=== PATIENT | female | born 1930 | race Caucasian/White ===

== ENCOUNTER → 2016-09-27 | Outpatient (CLI) | payer MEDICARE ==
[~2016-09-27] MED LIST: ALEN70TA4 PO; ATEN50TA PO; ATOR-14 PO; DBT/25 PO; LEVO50TA6 PO; LISI-729 PO
[2016-09-27 12:19] LABS: HEMATOCRIT 33.6 % (37-47); MEAN CELL VOLUME 92.8 fL (80-100); MEAN CORPUSCULAR HEMOGLOBIN 31.5 pg (25-34); MEAN CORPUSCULAR HGB CONC 33.9 g/dl (32-36); MEAN PLATELET VOLUME 9.8 fL (7.4-10.4); PLATELET COUNT 167 K/uL (130-400); RED BLOOD COUNT 3.62 M/uL (4.2-5.4); WHITE BLOOD COUNT 4.63 K/uL (4.8-10.8)
[2016-09-27 12:54] LABS: FERRITIN 117.8 ng/ml (8.0-388.0); THYROID STIMULATING HORMONE 4.41 uIu/ml (0.300-4.500)
[2016-09-27 12:58] LABS: ESTIMATED AVERAGE GLUCOSE 186 mg/dl; HA1C FLAG Normal (Normal)
== END | disposition home or self-care (01) ==
LOC: C.LAB 11:40
PROVIDERS: ATTEND Nurse Practitioner Adult Health
DX: E11.9 Type 2 diabetes mellitus without complications (principal); E03.9 Hypothyroidism, unspecified; D64.9 Anemia, unspecified

== ENCOUNTER → 2017-01-03 | Day surgery (SDC) | payer MEDICARE ==
[2016-12-14 13:33] VITALS: Ht 162.6 cm; Wt 59.1 kg
[~2017-01-03] VITALS: Ht 162.6 cm; Wt 59.1 kg
[~2017-01-03] MED LIST changes: +500ML BSS 0.3ML EPI 1:1000PF IRRIG ONE; +ACETAMINOPHEN 325 MG TAB PO PRN; -ALEN70TA4 PO; +AMVISC PLUS 0.8ML SYRINGE INT OCU ONE; -ATOR-14 PO; +ATROPINE SULFATE 0.1 MG/ML 5ML SYR IV PRN; +BSS FLUSH ONE; +ENDOCOAT 0.85ML SYRINGE INT OCU ONE; +EpHEDrine SULFATE INJ 50 MG/ML AMP IV PRN; +EpINEphrine INJ 1MG/ML AMP 1 MG/ML AMP ONE; +LACTATED RINGER'S 1000ML 500 ML IV SCH; +LIDOCAINE 4% OP SOLN DROP CHARGE ONE; +LIDOCAINE 4% OP SOLN DROP CHARGE OPL SCH; +LIDOCAINE HCL 1% MPF 2 ML VIAL ONE; +LIDOCAINE HCL 2% 2 ML VIAL (20MG/ML) ONE; -LISI-729 PO; +MIDAZOLAM HCL 1 MG/ML 2ML VIAL ONE; +MIX: 4ML BSS 1ML EPI 1:1000 PF TOP ONE; +MOXIFLOXACIN OPH SOLN PER DROP CHARGE ONE; +POVIDONE-IODINE OP SOLN 30 ML BTL ONE; +PROPARACAINE 0.5% OP SOLN PER DROP CHARGE OPL SCH; +PROPOFOL IV EMULSION 10 MG/ML 20 ML VIAL IV ONE; +TOBRAMYCIN/DEXAMETHASONE OPH OINT PER APPLN CHARGE ONE
--- NOTE | 2017-01-03 09:23 | History & Physical Bridge - [place] ---
H&P Re-Evaluation Bridge Note: I have examined the patient, reviewed the History & Physical and in the interval since the performance of the History & Physical I have noted the following changes of clinical significance: No changes noted
[2017-01-03] MEDS: PHENYLEPHRINE HCL 2.5% OP SOLN PER DROP CHARGE OPL SCH ×3 (09:38→09:50)
[2017-01-03] MEDS: TROPICAMIDE 1% OP SOLN PER DROP CHARGE OPL SCH ×3 (09:39→09:51)
[2017-01-03] MEDS: CYCLOPENTOLATE HCL 1% OP SOLN PER DROP CHARGE OPL SCH ×3 (09:40→09:52)
[2017-01-03] MEDS: MOXIFLOXACIN OPH SOLN PER DROP CHARGE OPL SCH ×3 (09:41→09:53)
--- NOTE | 2017-01-03 10:40 | [facility] Post Operative Brief Note ---
Immediate Operative Summary Operative Date Jan 03, 2017. Pre-Operative Diagnosis Left eye cataract Post-Operative Diagnosis same Procedure(s) Performed Left Cataract Phacoemulsification With Intraocular Lens Implant Surgeon Dr Zavala Funding Specialist Surgeon(s) none Estimated Blood Loss 0 Findings left cataract Specimens none Complication(s) None Disposition
[2017-01-03 10:42] VITALS: TEMP 36.5
--- NOTE | 2017-01-03 10:42 | Discharge Instructions-SurgCtr ---
Discharge Instructions Date of Service Jan 03, 2017. Visit Reason for Visit: Left Cataract Discharge Discharge Diagnosis / Problem: left cataract Discharge Goals Goal(s): Decrease discomfort, Improve function Activity Recommendations Activity Limitations: as noted below Anesthesia . Post Anesthesia Instructions: If you have had General Anesthesia or IV Sedation: * Do not drive today. * Resume driving when surgeon permits. * Do not make important decisions or sign legal documents today. * Call surgeon for: 1. Temperature elevations greater than 101 degrees F. 2. Uncontrollable pain. 3. Excessive bleeding. 4. Persistent nausea and vomiting. 5. Medication intolerance (nausea, vomiting or rash). * For nausea and vomiting use only clear liquids such as: tea, soda, bouillon until nausea subsides, then gradually increase diet as tolerated. * If you have any concerns or questions, call your surgeon's office. If physician is unavailable and it is an emergency, call 911 or go to the nearest emergency room. . Instructions / Follow-Up Instructions / Follow-Up ACTIVITY RECOMMENDATIONS: * Light activities. * You may walk outside, read, watch television. * You may notice redness on the white part of the eye and some blurry vision - this is normal. MEDICATIONS: Resume previous medications unless instructed otherwise by your surgeon. Start all eye drops at 12:30 pm today: * Eye drops (today): Prednisone - one drop in operative eye every 2 hours while awake Ofloxacin - one drop in operative eye every 2 hours while awake Bromfenac - one drop in operative eye daily SPECIAL CARE INSTRUCTIONS: * Tape plastic shield over eye to sleep at night. Call your doctor at with any concerns or problems. FOLLOW UP VISIT: Follow-up with Dr Zavala at [facility] office as scheduled. Diet Recommendations Home Diet: no limitations Procedures Procedures Performed: Left Cataract Phacoemulsification With Intraocular Lens Implant Pending Studies Studies pending at discharge: no Medical Emergencies . Who to Call and When: Medical Emergencies: If at any time you feel your situation is an emergency, please call 911 immediately. . Non-Emergent Contact Non-Emergency issues call your: Surgeon . . "Provider Documentation" section prepared by Quinton Zavala. .
[2017-01-03 11:10] VITALS: BP 175/66; PULSE 63; O2SAT 99
--- NOTE | 2017-01-03 11:13 | Anesthesia Progress Nt - [facility] ---
Anesthesia Post Op Note Date & Time Jan 03, 2017 at 11:13 Vital Signs Pain Intensity: 0 Vital Signs Past 12 Hours Date Time Temp Pulse Resp B/P (MAP) Pulse Ox O2 Delivery O2 Flow Rate FiO2 01/03/17 11:10 63 18 175/66 (102) 99 Room Air 01/03/17 10:42 36.5 63 16 165/72 (103) 98 Room Air 01/03/17 09:25 36.8 67 16 160/71 (100) 95 Room Air Notes Mental Status: alert / awake / arousable, participated in evaluation Pt Amnestic to Procedure: Yes Nausea / Vomiting: adequately controlled Pain: adequately controlled Airway Patency, RR, SpO2: stable & adequate BP & HR: stable & adequate Hydration State: stable & adequate Anesthetic Complications: no major complications apparent
--- NOTE | 2017-01-24 10:06 | [facility] Operative Report ---
Operative Report Date of Service Jan 24, 2017. Operative Report Phaco with monofocal IOL DATE OF OPERATION: 01/03/17 PREOPERATIVE DIAGNOSIS: Senile nuclear cataract, left eye POSTOPERATIVE DIAGNOSIS: Senile nuclear cataract, left eye PROCEDURE PERFORMED: Phacoemulsification with intraocular lens implantation, left eye SURGEON: Dr. Quinton Zavala ANESTHESIA: Topical with 1% intracameral lidocaine and monitored anesthesia care COMPLICATIONS: None DESCRIPTION OF PROCEDURE: After positively identifying the patient both verbally and by wristband in the preoperative area, the left eye was marked as the operative eye. The patient was then brought back to the operating room by the anesthesia and nursing staff where they were given a drop of Lidocaine and betadine into the operative eye. They were then sterilely prepped and draped in the standard fashion typical for ophthalmic surgery. Steri-strips were placed along the upper eyelids to keep the lashes back, and a lid speculum was placed into the operative eye. At this point, a documented time out was performed with members of the ophthalmology, nursing, and anesthesia staffs all agreeing upon the correct patient, correct location for surgery, correct procedure, and correct type and power of intraocular lens to be implanted. The microscope was then swung into position. First, a paracentesis wound was made using a sideport blade. Then, in sequence, 1% preservative-free lidocaine followed by Endocoat viscoelastic was injected into the anterior chamber. Next , the main incision was made with a keratome blade in triplanar fashion. A sharp cystotome was introduced into the eye and used to create a tear in the anterior capsule, which was directed into a continuous curvilinear capsulorrhexis using Utrata forceps. Hydrodissection was then performed with BSS on a flat-tip cannula. Next, the phacoemulsification handpiece was introduced into the eye and used to remove the nucleus in a [id number] fashion. This was done without complication and then the irrigation-aspiration handpiece was introduced into the eye and used to remove all remaining cortical and epinuclear material. Amvisc was then injected into the anterior chamber as well as into the capsular bag and using the lens injector system, an MX60 23.0 D lens, serial number [id number], and expiration date 06/2019 was injected into the capsular bag and rotated into the correct position. Next, the irrigation- aspiration handpiece was used to remove all remaining Amvisc. BSS was used to hydrate the main wound, and then BSS was injected into the paracentesis site to reach physiologic pressure and then the main wound was checked and found to be watertight. The patient was given drops of Vigamox and Tobradex ointment into the operative eye, and then the surrounding area was cleaned and dried. A clear plastic shield was placed over the eye and the patient was then sat up and taken from the operating room by the anesthesia staff having tolerated the procedure well and suffering no complications. DISPOSITION: The patient was returned to the recovery room in stable condition. I attest to the content of the Intraoperative Record and any orders documented therein. Any exceptions are noted below.
== END | disposition home or self-care (01) ==
LOC: X.SURG 09:14
PROVIDERS: ATTEND Ophthalmology
DX: H25.12 Age-related nuclear cataract, left eye (principal); I10 Essential (primary) hypertension; E03.9 Hypothyroidism, unspecified; E11.9 Type 2 diabetes mellitus without complications; Z79.84 Long term (current) use of oral hypoglycemic drugs; F41.9 Anxiety disorder, unspecified

== ENCOUNTER → 2017-06-13 | Outpatient (CLI) | payer MEDICARE ==
[~2017-06-13] MED LIST changes: -500ML BSS 0.3ML EPI 1:1000PF IRRIG ONE; +ACET-1311 PO; -ACETAMINOPHEN 325 MG TAB PO PRN; +AMOX500C3 PO; +AMPI500C9 PO; -AMVISC PLUS 0.8ML SYRINGE INT OCU ONE; +ASPI-320 PO; -ATROPINE SULFATE 0.1 MG/ML 5ML SYR IV PRN; +BISA10SU38 PR; -BSS FLUSH ONE; +CALC500C3 PO; +CIPR1TAB11 PO; +CPR500 PO; +CRD200 PO; -ENDOCOAT 0.85ML SYRINGE INT OCU ONE; -EpHEDrine SULFATE INJ 50 MG/ML AMP IV PRN; -EpINEphrine INJ 1MG/ML AMP 1 MG/ML AMP ONE; +GLC/500 PO; +INSDGIPEN SC; +KFL500 PO; -LACTATED RINGER'S 1000ML 500 ML IV SCH; +LCTX PO; -LIDOCAINE 4% OP SOLN DROP CHARGE ONE; -LIDOCAINE 4% OP SOLN DROP CHARGE OPL SCH; -LIDOCAINE HCL 1% MPF 2 ML VIAL ONE; -LIDOCAINE HCL 2% 2 ML VIAL (20MG/ML) ONE; +LISI-789 PO; +LPR25 PO; +LPT40 PO; +LSN25 PO; +METF750T PO; +METO50TA16 PO; +MGNO400 PO; -MIDAZOLAM HCL 1 MG/ML 2ML VIAL ONE; +MIRT15TA3 PO; +MIRT1TAB27; -MIX: 4ML BSS 1ML EPI 1:1000 PF TOP ONE; +MOML PO; -MOXIFLOXACIN OPH SOLN PER DROP CHARGE ONE; +MRLP17X PO; +NTRSLP4 SL; +NUTR-7 PO; +NVLGIPEN SC; +ONDA4TAB46 PO; +PANT1TAB4 PO; +PLV75 PO; -POVIDONE-IODINE OP SOLN 30 ML BTL ONE; +PRLSR20 PO; -PROPARACAINE 0.5% OP SOLN PER DROP CHARGE OPL SCH; -PROPOFOL IV EMULSION 10 MG/ML 20 ML VIAL IV ONE; +RANI1TAB75 PO; +SODI0.9S IV; +SULF800T23 PO; -TOBRAMYCIN/DEXAMETHASONE OPH OINT PER APPLN CHARGE ONE; +TPRSR50 PO; +TRMO115 TOP; +[UNRECOGNIZED DRUG - CODE] TOP
--- NOTE | 2017-06-13 10:47 | DIAGNOSTIC IMAGING REPORT ---
L FOOT MIN 3 VIEWS ROUTINE CLINICAL HISTORY: 86 years-old Female presenting with CELLULITIS OF L FOOT. TECHNIQUE: Frontal, oblique, and lateral views the left foot were obtained. COMPARISON: None. FINDINGS: Osteopenia. This limits evaluation for osseous erosion and nondisplaced fracture. Mild diffuse soft tissue swelling. Atherosclerosis. Mild degenerative changes of the first metatarsophalangeal joint. Prominent bone spur at the inferior calcaneus. Degenerative changes of the distal interphalangeal joint of the second toe. No acute fracture or malalignment. A bandage overlies the distal second toe. No gross evidence of ostial lysis of the tuft of the distal phalanx of the second toe. No soft tissue emphysema. No gross evidence of osseous erosion or periostitis. IMPRESSION: Allowing for osteopenia, no gross evidence of osteomyelitis. Electronically signed by: Jeremias Parikh M.D. 06/13/2017 10:46 AM Dictated Date/Time: 06/13/2017 10:44 AM
[2017-06-13 12:08] LABS: BASO % 0.5 %; BASO ABS # 0.03 K/uL (0-0.2); EOS % 2.4 %; EOS ABS # 0.14 K/uL (0-0.5); HEMATOCRIT 32.2 % (37-47); HEMOGLOBIN 10.7 g/dL (12.0-16.0); IG# 0.02 K/uL (0.00-0.02); LYMPH ABS # 1.11 K/uL (1.2-3.4); MEAN CELL VOLUME 93.6 fL (80-100); MEAN CORPUSCULAR HEMOGLOBIN 31.1 pg (25-34); MEAN CORPUSCULAR HGB CONC 33.2 g/dl (32-36); MEAN PLATELET VOLUME 10.4 fL (7.4-10.4); MONO % 12.8 %; MONO ABS # 0.75 K/uL (0.11-0.59); PLATELET COUNT 213 K/uL (130-400); RED CELL DISTRIBUTION WIDTH CV 12.7 % (11.5-14.5); RED CELL DISTRIBUTION WIDTH SD 43.4 fL (36.4-46.3); WHITE BLOOD COUNT 5.85 K/uL (4.8-10.8)
[2017-06-13 12:11] LABS: HEMOGLOBIN A1C 10.4 % (4.5-5.6)
[2017-06-13 12:17] LABS: ALBUMIN 2.9 gm/dl (3.4-5.0); ALT/SGPT 17 U/L (12-78); AST/SGOT 14 U/L (15-37); BLOOD UREA NITROGEN 24 mg/dl (7-18); CALCIUM 8.9 mg/dl (8.5-10.1); CARBON DIOXIDE 31 mmol/L (21-32); CHOLESTEROL 176 mg/dl (0-200); CREATININE 1.09 mg/dl (0.60-1.20); GLUCOSE 304 mg/dl (70-99); POTASSIUM 4.3 mmol/L (3.5-5.1); SODIUM 135 mmol/L (136-145); TOTAL PROTEIN 7.7 gm/dl (6.4-8.2)
[2017-06-13 12:19] LABS: ALKALINE PHOSPHATASE 81 U/L (45-117); LDL CHOLESTEROL CALCULATED 106 mg/dl
== END | disposition home or self-care (01) ==
LOC: C.RAD 09:51
PROVIDERS: ATTEND Nurse Practitioner Family
DX: L03.116 Cellulitis of left lower limb (principal); E11.621 Type 2 diabetes mellitus with foot ulcer; E03.9 Hypothyroidism, unspecified

== ENCOUNTER 2017-06-27 16:04 | Inpatient (IN) | payer MEDICARE, OTHER ==
[~2017-06-27] VITALS: Ht 162.6 cm; Wt 57.6 kg
[~2017-06-27 16:04] MED LIST changes: -ACET-1311 PO; -AMPI500C9 PO; -ASPI-320 PO; -BISA10SU38 PR; -CALC500C3 PO; -CIPR1TAB11 PO; -CPR500 PO; -CRD200 PO; -DBT/25 PO; -INSDGIPEN SC; -KFL500 PO; -LCTX PO; -LISI-789 PO; -LPR25 PO; -LPT40 PO; -LSN25 PO; -METF750T PO; -METO50TA16 PO; -MGNO400 PO; -MIRT15TA3 PO; -MIRT1TAB27; -MOML PO; -MRLP17X PO; -NTRSLP4 SL; -NUTR-7 PO; -NVLGIPEN SC; -ONDA4TAB46 PO; -PANT1TAB4 PO; -PLV75 PO; -PRLSR20 PO; -RANI1TAB75 PO; -SODI0.9S IV; -TPRSR50 PO; -[UNRECOGNIZED DRUG - CODE] TOP
[2017-06-27] MEDS ORDERED: SODIUM CHLORIDE 0.9% 1000ML 1,000 ML IV STA (16:21)
--- NOTE | 2017-06-27 16:30 | EMERGENCY ROOM VISIT NOTE ---
History Report prepared by Savi: Diann Nguyen Under the Supervision of: Dr. Jerrod Rivera M.D. First contact with patient: 16:14 Chief Complaint: NAUSEA Stated Complaint: WEAKNESS, NAUSEA, BALANCE, BLOCKAGE Nursing Triage Summary: vomitied once this morning. feeling a little "nauseated" family reports she hasnt had a bowel movement for the past day or so. "we gave her mirilax and prune juice." History of Present Illness The patient is a 86 year old female who presents to the Emergency Room with complaints of two episodes of vomiting occurring today. The patient states she felt fine yesterday. Presently, the patient denies any nausea. The patients family states the patient has had increased weakness and fatigue more recently but they are mostly concerned about her vomiting. She notes a dry cough but denies any abdominal pain, fever or congestion. The patient has not had a bowel movement for a day and a half. The patient has taken prune juice and miralax this morning. The patient has no history of bowel obstructions. The patient states she has an infection in her toe and states she is on antibiotics and has been following up with wound care for it. She also has a history of chronic vaginal prolapse for which the patient has not wanted further evaluation or intervention. The patient's family does not believe the patient is not safe at home. The patient's family states they have moved in with the patient two weeks ago because of her increasing weakness. Per family, they are trying to get into [facility] to help her get stronger. Per family, the patient has had OT and PT come in and access the patient. Source of History: patient Onset: today Position: other (generalized) Quality: other (vomiting) Timing: other (two episodes) Associated Symptoms: + cough, + vomiting, + fatigue, + weakness, No fevers, No nausea, No abdominal pain Review of Systems See HPI for pertinent positives and negatives. A total of ten systems were reviewed and were otherwise negative. Past Medical & Surgical Medical Problems: (1) Benign hypertension (2) Diabetes mellitus (3) Hyperlipidemia Social History Smoking Status: Never Smoker Alcohol Use: none Drug Use: none Marital Status: Housing Status: lives with family, lives with significant other Occupation Status: retired Current/Historical Medications Scheduled Amoxicillin (Amoxil), 500 MG PO TID Atenolol (Tenormin), 25 MG PO BID Levothyroxine Sodium (Levothyroxine Sodium), 1 TAB PO QAM Metformin Hcl (Glucophage), 500 MG PO BID Sulfa/Trimethoprim (Bactrim Ds 800MG/160MG), 1 TAB PO BID Triamcinolone Acet (Triamcinolone Acetonide), 1 APPLN TOP BID Allergies Coded Allergies: No Known Allergies (Unverified , 01/03/17) Physical Exam Vital Signs Date Time Temp Pulse Resp B/P (MAP) Pulse Ox O2 Delivery O2 Flow Rate FiO2 06/27/17 22:45 37.3 06/27/17 22:40 78 19 98 06/27/17 22:30 147/75 06/27/17 22:25 70 25 97 06/27/17 22:10 75 24 97 06/27/17 22:05 78 18 97 06/27/17 22:00 140/77 06/27/17 21:54 79 06/27/17 21:50 76 27 96 06/27/17 21:35 76 26 95 06/27/17 21:30 76 25 141/82 95 06/27/17 21:15 82 17 96 06/27/17 21:00 79 23 149/90 93 06/27/17 20:45 82 28 95 Nasal Cannula 3.0 06/27/17 20:30 86 13 91 06/27/17 20:15 86 27 90 06/27/17 20:11 178/87 06/27/17 20:00 85 21 86 Room Air 06/27/17 20:00 Nasal Cannula 2.0 06/27/17 19:45 85 19 91 06/27/17 19:30 83 17 130/86 06/27/17 19:27 157/72 06/27/17 18:55 78 22 144/86 93 Room Air 06/27/17 17:50 77 06/27/17 16:09 37.5 87 18 129/78 95 Room Air Physical Exam GENERAL: Awake, alert, well-appearing, in no distress HENT: Normocephalic, atraumatic. Oropharynx Dry MM. EYES: Normal conjunctiva. Sclera non-icteric. NECK: Supple. No nuchal rigidity. FROM. No JVD. RESPIRATORY: Clear to auscultation. CARDIAC: Regular rate, normal rhythm. Extremities warm and well perfused. Pulses equal. ABDOMEN: Soft, non-distended. No tenderness to palpation. No rebound or guarding. No masses. RECTAL: Deferred. MUSCULOSKELETAL: Chest examination reveals no tenderness. The back is symmetrical on inspection without obvious abnormality. There is no CVA tenderness to palpation. No joint edema. LOWER EXTREMITIES: Calves are equal size bilaterally and non-tender. Scant BLE edema. Left foot with scant erythema without warmth. Left 2nd distal phalanx healing ulceration without swelling or discharge. . NEURO: Normal sensorium. No sensory or motor deficits noted. SKIN: No rash or jaundice noted. Medical Decision & Procedures ER Provider Diagnostic Interpretation: Radiology results as stated below per my review and radiologist interpretation: CHEST ONE VIEW PORTABLE FINDINGS: Lung volumes are normal. There is no pneumothorax. A small left pleural effusion is noted. There may be a trace right pleural effusion. Bibasilar opacities, left greater than right, are noted. There is pulmonary vascular congestion with possible mild pulmonary edema. Mild cardiomegaly is noted. There is mitral annular calcification. Skin fold projects over the right chest. IMPRESSION: 1. Small left and trace right pleural effusions. 2. Bibasilar opacities which could reflect pneumonia or atelectasis. Radiographic follow up is recommended. 3. Pulmonary vascular congestion with possible mild pulmonary edema. Electronically signed by: Srikanth Montes M.D. CT OF THE ABDOMEN AND PELVIS WITH CONTRAST FINDINGS: Visualized portions of the lower chest demonstrate moderate cardiomegaly with small bilateral pleural effusions, left larger than right. Interlobular septal thickening is indicative of pulmonary edema. No pneumatosis, free air or portal venous gas is present. A small hiatal hernia is present. Multiple gallstones within the gallbladder are noted. There is no evidence for acute cholecystitis. No pancreatic ductal dilatation. There is no significant biliary ductal dilatation. The spleen, adrenal glands and pancreas are unremarkable. There is mild left renal atrophy. There is no hydronephrosis. There is no evidence for a bowel obstruction. The appendix is normal. This extensive sigmoid diverticulosis without evidence for acute diverticulitis. A moderate amount of stool is noted within the rectum. There is mild presacral infiltration. There is no fluid collection to suggest an abscess. There is extensive atherosclerotic plaque of the abdominal aorta and major branch vessels. 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 There is suspected severe stenosis of the left renal artery which is suboptimally assessed on this non-CTA exam. There is at least moderate stenosis of the right renal artery. Inferior mesenteric artery is patent. There is no aneurysmal dilatation. There is no dissection. No suspicious osseous lesions are present. Mild anasarca is noted. There is evidence for pelvic floor relaxation. IMPRESSION: 1. No bowel obstruction. Extensive sigmoid diverticulosis without evidence for acute diverticulitis. 2. Moderate amount of stool within the rectum. 3. Extensive atherosclerotic plaque of the abdominal aorta and major branch vessels, suboptimally assessed on this non-CTA exam. 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 Severe left renal artery stenosis. 4. Cholelithiasis. No evidence for acute cholecystitis. 5. Small bilateral pleural effusions, left larger than right. Findings indicative of mild pulmonary edema. 6. Moderate cardiomegaly. Electronically signed by: Srikanth Montes M.D. Laboratory Results 06/27/17 17:05 Red Blood Count 3.30, Mean Corpuscular Volume 93.0, Mean Corpuscular Hemoglobin 31.2, Mean Corpuscular Hemoglobin Concent 33.6, Mean Platelet Volume 10.1, Neutrophils (%) (Auto) 94.3, Lymphocytes (%) (Auto) 2.9, Monocytes (%) (Auto) 2.2, Eosinophils (%) (Auto) 0.0, Basophils (%) (Auto) 0.1, Neutrophils # (Auto) 9.62, Lymphocytes # (Auto) 0.30, Monocytes # (Auto) 0.22, Eosinophils # (Auto) 0.00, Basophils # (Auto) 0.01 06/27/17 17:05 Test 06/27/17 17:05 06/27/17 17:35 06/27/17 20:24 06/27/17 20:40 White Blood Count 10.20 K/uL (4.8-10.8) Red Blood Count 3.30 M/uL (4.2-5.4) Hemoglobin 10.3 g/dL (12.0-16.0) Hematocrit 30.7 % (37-47) Mean Corpuscular Volume 93.0 fL (80-100) Mean Corpuscular Hemoglobin 31.2 pg (25-34) Mean Corpuscular Hemoglobin Concent 33.6 g/dl (32-36) Platelet Count 176 K/uL (130-400) Mean Platelet Volume 10.1 fL (7.4-10.4) Neutrophils (%) (Auto) 94.3 % Lymphocytes (%) (Auto) 2.9 % Monocytes (%) (Auto) 2.2 % Eosinophils (%) (Auto) 0.0 % Basophils (%) (Auto) 0.1 % Neutrophils # (Auto) 9.62 K/uL (1.4-6.5) Lymphocytes # (Auto) 0.30 K/uL (1.2-3.4) Monocytes # (Auto) 0.22 K/uL (0.11-0.59) Eosinophils # (Auto) 0.00 K/uL (0-0.5) Basophils # (Auto) 0.01 K/uL (0-0.2) RDW Standard Deviation 44.8 fL (36.4-46.3) RDW Coefficient of Variation 13.1 % (11.5-14.5) Immature Granulocyte % (Auto) 0.5 % Immature Granulocyte # (Auto) 0.05 K/uL (0.00-0.02) Anion Gap 8.0 mmol/L (3-11) Estimated GFR () 48.2 Estimated GFR (Non- 41.6 BUN/Creatinine Ratio 13.9 (10-20) Lactic Acid Level 1.4 mmol/L (0.4-2.0) Calcium Level 8.2 mg/dl (8.5-10.1) Total Bilirubin 0.5 mg/dl (0.2-1) Direct Bilirubin 0.1 mg/dl (0-0.2) Aspartate Amino Transf (AST/SGOT) 81 U/L (15-37) Alanine Aminotransferase (ALT/SGPT) 40 U/L (12-78) Alkaline Phosphatase 74 U/L (45-117) Pro-B-Type Natriuretic Peptide 38969 pg/ml (0-1800) Total Protein 6.9 gm/dl (6.4-8.2) Albumin 2.6 gm/dl (3.4-5.0) Lipase 72 U/L (73-393) Influenza Type A Antigen POS for Influ A (NEG) Influenza Type B Antigen POS for Influ B (NEG) Prothrombin Time 11.9 SECONDS (9.0-12.0) Prothromb Time International Ratio 1.1 (0.9-1.1) Urine Color YELLOW Urine Appearance CLEAR (CLEAR) Urine pH 5.5 (4.5-7.5) Urine Specific [place] 1.037 (1.000-1.030) Urine Protein 1+ (NEG) Urine Glucose (UA) TRACE (NEG) Urine Ketones TRACE (NEG) Urine Occult Blood 3+ (NEG) Urine Nitrite NEG (NEG) Urine Bilirubin NEG (NEG) Urine Urobilinogen NEG (NEG) Urine Leukocyte Esterase NEG (NEG) Urine WBC (Auto) 1-5 /hpf (0-5) Urine RBC (Auto) >30 /hpf (0-4) Urine Hyaline Casts (Auto) 1-5 /lpf (0-5) Urine Epithelial Cells (Auto) >30 /lpf (0-5) Urine Bacteria (Auto) NEG (NEG) Laboratory results reviewed by me Medications Administered Medications (Trade) Dose Ordered Sig/Thelma Route Start Time Stop Time Status Last Admin Dose Admin Sodium Chloride 1,000 ml @ 999 mls/hr Q1H1M STAT IV 06/27/17 16:21 06/27/17 17:21 DC 06/27/17 17:21 999 MLS/HR Oseltamivir Phosphate (Tamiflu Cap) 75 mg NOW STAT PO 06/27/17 19:33 06/27/17 19:34 DC 06/27/17 20:05 75 MG Heparin Sodium (Porcine) (Heparin Iv Bolus) 10,000 unit STK-MED ONCE .ROUTE 06/27/17 20:29 06/27/17 20:30 DC 06/27/17 21:09 3,000 UNIT Heparin Sodium/ Dextrose (Heparin 25,000 Unit/500ml D5W) 25,000 unit STK-MED ONCE .ROUTE 06/27/17 20:29 06/27/17 20:30 DC 06/27/17 21:07 25,000 UNIT Furosemide (Lasix Inj) 20 mg NOW STAT IV 06/27/17 20:39 06/27/17 20:40 DC 06/27/17 21:28 20 MG ECG Indication: nausea Rate (beats per minute): 76 Rhythm: sinus rhythm Findings: PAC, no acute ischemic change, other (normal axis) ED Course 1620: The patient was evaluated in room B5. A complete history and physical exam was performed. 1935: I updated the patient on her test results. She is agreeable to the treatment plan. 2000: I discussed the patient with Dr. Dobbins - He will evaluate the patient for further treatment. Medical Decision I reviewed the patient's past medical history, medications, and the nursing notes as described above. Differential diagnoses: pneumonia, bronchitis, gastritis, gastroenteritis, obstruction, diverticulitis, ACS. The patient is a an 86-year-old woman who presents emergency Department with nausea vomiting 2 today in the setting of constipation for past day and a half per hpi. Arrival the patient is no acute distress, afebrile with stable vital signs. Abdomen is benign. Labs notable for troponin of 3. EKG without any ischemic changes. BNP also elevated to 16,000 in the setting of chest x-ray demonstrating fluid overload. Patient was given 20mg of IV Lasix. Discussed with family findings of elevated troponin and denied any history of GI bleeding or bleeding issues in the past. Patient was given heparin for NSTEMI. She was additionally found to be influenza A and influenza B-positive and given Tamiflu given question of onset of sx within [address] abd/pel negative for acute findings although demonstrates atherosclerosis with "severe multifocal stenosis of the superior mesenteric artery with suspected short segment occlusion and distal reconstitution". Given lactate wnl unlikely to be related to patient's presentation. Case was discussed with JIGNA Wei hospitalist will admit the patient for further management. Medication Reconcilliation Current Medication List: was personally reviewed by me Blood Pressure Screening Patient's blood pressure: Elevated blood pressure Blood pressure disposition: Elevated BP felt to be situational Consults Time Called: 1948 Consulting Physician: Dr. Dobbins Returned Call: 2000 I discussed the patient with Dr. Dobbins - He will evaluate the patient for further treatment. Impression Primary Impression: NSTEMI (non-ST elevated myocardial infarction) Additional Impressions: Congestive heart failure (CHF) Influenza A Influenza B Critical Care I have personally spent greater than 35 minutes of critical care time in the direct management of this patient. This includes bedside care, interpretation of diagnostic studies, and testing, discussion with consultants, patient, and family members, and other required patient management activities. This 35 minutes is in excess of all separately billable procedures. Scribe Attestation The scribe's documentation has been prepared under my direction and personally reviewed by me in its entirety. I confirm that the note above accurately reflects all work, treatment, procedures, and medical decision making performed by me. Departure Information Dispostion Being Evaluated By Hospitalist Referrals No Doctor, Assigned (PCP) Patient Instructions [facility] Problem Qualifiers
--- NOTE | 2017-06-27 16:53 | DIAGNOSTIC IMAGING REPORT ---
CHEST ONE VIEW PORTABLE CLINICAL HISTORY: Abdominal pain. COMPARISON STUDY: No previous studies for comparison. FINDINGS: Lung volumes are normal. There is no pneumothorax. A small left pleural effusion is noted. There may be a trace right pleural effusion. Bibasilar opacities, left greater than right, are noted. There is pulmonary vascular congestion with possible mild pulmonary edema. Mild cardiomegaly is noted. There is mitral annular calcification. Skin fold projects over the right chest. IMPRESSION: 1. Small left and trace right pleural effusions. 2. Bibasilar opacities which could reflect pneumonia or atelectasis. Radiographic follow up is recommended. 3. Pulmonary vascular congestion with possible mild pulmonary edema. Electronically signed by: Srikanth Montes M.D. 06/27/2017 4:52 PM Dictated Date/Time: 06/27/2017 4:51 PM
[2017-06-27 17:36] LABS: BASO % 0.1 %; BASO ABS # 0.01 K/uL (0-0.2); HEMATOCRIT 30.7 % (37-47); HEMOGLOBIN 10.3 g/dL (12.0-16.0); IG# 0.05 K/uL (0.00-0.02); LYMPH % 2.9 %; MEAN CORPUSCULAR HEMOGLOBIN 31.2 pg (25-34); MEAN CORPUSCULAR HGB CONC 33.6 g/dl (32-36); MEAN PLATELET VOLUME 10.1 fL (7.4-10.4); MONO % 2.2 %; MONO ABS # 0.22 K/uL (0.11-0.59); NEUT % 94.3 %; NEUT ABS # 9.62 K/uL (1.4-6.5); PLATELET COUNT 176 K/uL (130-400); RED CELL DISTRIBUTION WIDTH CV 13.1 % (11.5-14.5); RED CELL DISTRIBUTION WIDTH SD 44.8 fL (36.4-46.3)
[2017-06-27 18:00] LABS: ALBUMIN 2.6 gm/dl (3.4-5.0); ALT/SGPT 40 U/L (12-78); BLOOD UREA NITROGEN 16 mg/dl (7-18); CALCIUM 8.2 mg/dl (8.5-10.1); CARBON DIOXIDE 26 mmol/L (21-32); CREATININE 1.17 mg/dl (0.60-1.20); GLUCOSE 283 mg/dl (70-99); LIPASE 72 U/L (73-393); POTASSIUM 4.3 mmol/L (3.5-5.1); SODIUM 135 mmol/L (136-145)
[2017-06-27 18:07] LABS: INFLUENZA B ANTIGEN POS for Influ B (NEG)
[2017-06-27 18:11] LABS: ALKALINE PHOSPHATASE 74 U/L (45-117); AST/SGOT 81 U/L (15-37); TOTAL PROTEIN 6.9 gm/dl (6.4-8.2)
[2017-06-27] MEDS ORDERED: OPTIRAY 320 IV PRN (18:45)
--- NOTE | 2017-06-27 19:26 | DIAGNOSTIC IMAGING REPORT ---
CT OF THE ABDOMEN AND PELVIS WITH CONTRAST CLINICAL HISTORY: Nausea, vomiting and constipation. COMPARISON STUDY: None. TECHNIQUE: Following IV administration of 94 mL of Optiray-320, axial images of the abdomen and pelvis were obtained from the lung bases to the proximal femurs. Images were reviewed in the axial, sagittal, and coronal planes. IV contrast was administered without complication. A dose lowering technique was utilized adhering to the principles of ALARA. CT DOSE: 263.64 mGy.cm FINDINGS: Visualized portions of the lower chest demonstrate moderate cardiomegaly with small bilateral pleural effusions, left larger than right. Interlobular septal thickening is indicative of pulmonary edema. No pneumatosis, free air or portal venous gas is present. A small hiatal hernia is present. Multiple gallstones within the gallbladder are noted. There is no evidence for acute cholecystitis. No pancreatic ductal dilatation. There is no significant biliary ductal dilatation. The spleen, adrenal glands and pancreas are unremarkable. There is mild left renal atrophy. There is no hydronephrosis. There is no evidence for a bowel obstruction. The appendix is normal. This extensive sigmoid diverticulosis without evidence for acute diverticulitis. A moderate amount of stool is noted within the rectum. There is mild presacral infiltration. There is no fluid collection to suggest an abscess. There is extensive atherosclerotic plaque of the abdominal aorta and major branch vessels. 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 There is suspected severe stenosis of the left renal artery which is suboptimally assessed on this non-CTA exam. There is at least moderate stenosis of the right renal artery. Inferior mesenteric artery is patent. There is no aneurysmal dilatation. There is no dissection. No suspicious osseous lesions are present. Mild anasarca is noted. There is evidence for pelvic floor relaxation. IMPRESSION: 1. No bowel obstruction. Extensive sigmoid diverticulosis without evidence for acute diverticulitis. 2. Moderate amount of stool within the rectum. 3. Extensive atherosclerotic plaque of the abdominal aorta and major branch vessels, suboptimally assessed on this non-CTA exam. 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 Severe left renal artery stenosis. 4. Cholelithiasis. No evidence for acute cholecystitis. 5. Small bilateral pleural effusions, left larger than right. Findings indicative of mild pulmonary edema. 6. Moderate cardiomegaly. Electronically signed by: Srikanth Montes M.D. 06/27/2017 7:25 PM Dictated Date/Time: 06/27/2017 7:14 PM
[2017-06-27] MEDS ORDERED: OSELTAMIVIR PHOSPHATE 75 MG CAP PO STA (19:33)
[2017-06-27] MEDS ORDERED: HEPARIN 25000 UNIT/500 ML D5W ONE (20:29)
[2017-06-27] MEDS ORDERED: HEPARIN SOD (PORCINE) 1000 UNIT/ML 10 ML VIAL ONE (20:29)
[2017-06-27] MEDS ORDERED: FUROSEMIDE 40 MG/4 ML VIAL IV STA (20:39)
[2017-06-27 21:01] LABS: INR 1.1 (0.9-1.1)
[2017-06-27] MEDS ORDERED: GLUCAGON FOR INJ 1 MG VIAL SQ PRN (22:15)
[2017-06-27] MEDS ORDERED: GLUCOSE 10 TABS/TUBE PO PRN (22:15)
[2017-06-27] MEDS ORDERED: DEXTROSE 50% 50 ML SYR IV PRN (22:15)
[2017-06-27] MEDS ORDERED: NITROGLYCERIN 0.4 MG SL PER TAB CHARGE SL PRN (22:15)
[2017-06-27] MEDS ORDERED: GLUCOSE 40% GEL 15 GM TUBE PO PRN (22:15)
[2017-06-27] MEDS ORDERED: ASPIRIN 81 MG CHEW PO STA (23:16)
--- NOTE | 2017-06-27 23:22 | History and Physical ---
History & Physical Date & Time of Service: Jun 27, 2017 at 22:56 Chief Complaint: Weakness, Nausea, Balance, Blockage Primary Care Physician: Margarita Villegas C.R.N.P. History of Present Illness Source: patient, hospital records The patient is an 86 year old female with a past medical history of hypertension , diabetes, hypothyroidism, and uterine prolapse that presents with weakness and fatigue. The patient had 2 episodes of vomiting that occurred today and due to concern of her sister and [id number] that she lives with, she was brought into the hospital. Her family is not with her at this time and that patient appears to be a poor historian, but from earlier when the family was met with in the ED the patient has had increasing weakness and fatigue for the last few days along with her nausea and vomiting today. They also stated that she had a dry cough that was not productive. The patient has also had no bowel movements for the last day and a half, and had taken prune juice and MiraLAX this morning. In the ED the patient was found to have both influenza A and B, in addition to significantly elevated troponins. The patient denies any chest pain or shortness of breath at this time. The patient also states that she has been on antibiotics for a lesion on her left second toe, although she cannot provide a duration. The family states that they moved in with the patient approximately 2 weeks ago due to her increasing weakness, and they have been trying to get her into rehabilitation at [facility]. At this time she is being provided with physical and occupational therapy at home. The patient also has a history significant for uterine prolapse that had been evaluated by her primary care physician although the patient refused any gynecologic intervention. Past Medical/Surgical History Medical Problems: (1) Benign hypertension Status: Chronic (2) Diabetes mellitus Status: Chronic (3) Hyperlipidemia Status: Chronic Family History Noncontributory Social History Smoking Status: Never Smoker Smokeless Tobacco Use: No Alcohol Use: none Drug Use: none Marital Status: Occupational Status: retired Immunizations History of Influenza Vaccine: Unknown History of Tetanus Vaccine?: Unknown History of Pneumococcal: Unknown History of Hepatitis B Vaccine: Unknown Multi-Drug Resistant Organisms History of MDRO: No Allergies Coded Allergies: No Known Allergies (Unverified , 01/03/17) Home Medications Scheduled Amoxicillin (Amoxil), 500 MG PO TID Atenolol (Tenormin), 25 MG PO BID Levothyroxine Sodium (Levothyroxine Sodium), 1 TAB PO QAM Metformin Hcl (Glucophage), 500 MG PO BID Sulfa/Trimethoprim (Bactrim Ds 800MG/160MG), 1 TAB PO BID Triamcinolone Acet (Triamcinolone Acetonide), 1 APPLN TOP BID Review of Systems Constitutional: + weakness, + fatigue, No fever, No chills Respiratory: + cough, No sputum, No wheezing, No shortness of breath Cardiovascular: No chest pain, No palpitations Abdomen: + constipation, No pain, No nausea, No vomiting, No diarrhea Genitourinary - Female: No dysuria, No urinary frequency Endocrine: + fatigue Physical Exam Vital Signs Date Time Temp Pulse Resp B/P (MAP) Pulse Ox O2 Delivery O2 Flow Rate FiO2 06/27/17 22:05 78 18 97 06/27/17 22:00 140/77 06/27/17 21:54 79 06/27/17 21:50 76 27 96 06/27/17 21:35 76 26 95 06/27/17 21:30 76 25 141/82 95 06/27/17 21:15 82 17 96 06/27/17 21:00 79 23 149/90 93 06/27/17 20:45 82 28 95 Nasal Cannula 3.0 06/27/17 20:30 86 13 91 06/27/17 20:15 86 27 90 06/27/17 20:11 178/87 06/27/17 20:00 85 21 86 Room Air 06/27/17 20:00 Nasal Cannula 2.0 06/27/17 19:45 85 19 91 06/27/17 19:30 83 17 130/86 06/27/17 19:27 157/72 06/27/17 18:55 78 22 144/86 93 Room Air 06/27/17 17:50 77 06/27/17 16:09 37.5 87 18 129/78 95 Room Air General Appearance: WD/WN, no apparent distress Head: normocephalic, atraumatic Eyes: normal inspection, sclerae normal Neck: supple, no carotid bruits Respiratory/Chest: chest non-tender, no respiratory distress, + crackles (at the bases) Cardiovascular: regular rate, rhythm, no edema, no gallop, no murmur Abdomen/GI: normal bowel sounds, non tender, soft Genitourinary - Female: + pertinent finding (uterine prolapse) Extremities/Musculoskelatal: + pertinent finding (Ulcer over the second toe of the left foot - dressing c/d/i) 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, alert Diagnostics Laboratory Results Results Past 24 Hours Test 06/27/17 17:05 06/27/17 17:35 06/27/17 20:24 06/27/17 20:40 Range/Units White Blood Count 10.20 4.8-10.8 K/uL Red Blood Count 3.30 4.2-5.4 M/uL Hemoglobin 10.3 12.0-16.0 g/dL Hematocrit 30.7 37-47 % Mean Corpuscular Volume 93.0 80-100 fL Mean Corpuscular Hemoglobin 31.2 25-34 pg Mean Corpuscular Hemoglobin Concent 33.6 32-36 g/dl Platelet Count 176 130-400 K/uL Mean Platelet Volume 10.1 7.4-10.4 fL Neutrophils (%) (Auto) 94.3 % Lymphocytes (%) (Auto) 2.9 % Monocytes (%) (Auto) 2.2 % Eosinophils (%) (Auto) 0.0 % Basophils (%) (Auto) 0.1 % Neutrophils # (Auto) 9.62 1.4-6.5 K/uL Lymphocytes # (Auto) 0.30 1.2-3.4 K/uL Monocytes # (Auto) 0.22 0.11-0.59 K/uL Eosinophils # (Auto) 0.00 0-0.5 K/uL Basophils # (Auto) 0.01 0-0.2 K/uL RDW Standard Deviation 44.8 36.4-46.3 fL RDW Coefficient of Variation 13.1 11.5-14.5 % Immature Granulocyte % (Auto) 0.5 % Immature Granulocyte # (Auto) 0.05 0.00-0.02 K/uL Sodium Level 135 136-145 mmol/L Potassium Level 4.3 3.5-5.1 mmol/L Chloride Level 101 98-107 mmol/L Carbon Dioxide Level 26 21-32 mmol/L Anion Gap 8.0 3-11 mmol/L Blood Urea Nitrogen 16 7-18 mg/dl Creatinine 1.17 0.60-1.20 mg/dl Estimated GFR () 48.2 Estimated GFR (Non- 41.6 BUN/Creatinine Ratio 13.9 10-20 Random Glucose 283 70-99 mg/dl Lactic Acid Level 1.4 0.4-2.0 mmol/L Calcium Level 8.2 8.5-10.1 mg/dl Total Bilirubin 0.5 0.2-1 mg/dl Direct Bilirubin 0.1 0-0.2 mg/dl Aspartate Amino Transf (AST/SGOT) 81 15-37 U/L Alanine Aminotransferase (ALT/SGPT) 40 12-78 U/L Alkaline Phosphatase 74 45-117 U/L Troponin I 3.720 4.570 0-0.045 ng/ml Pro-B-Type Natriuretic Peptide 51318 0-1800 pg/ml Total Protein 6.9 6.4-8.2 gm/dl Albumin 2.6 3.4-5.0 gm/dl Lipase 72 73-393 U/L Influenza Type A Antigen POS for Influ A NEG Influenza Type B Antigen POS for Influ B NEG Prothrombin Time 11.9 9.0-12.0 SECONDS Prothromb Time International Ratio 1.1 0.9-1.1 Activated Partial Thromboplast Time 27.0 21.0-31.0 SECONDS Partial Thromboplastin Ratio 1.0 Urine Color YELLOW Urine Appearance CLEAR CLEAR Urine pH 5.5 4.5-7.5 Urine Specific [place] 1.037 1.000-1.030 Urine Protein 1+ NEG Urine Glucose (UA) TRACE NEG Urine Ketones TRACE NEG Urine Occult Blood 3+ NEG Urine Nitrite NEG NEG Urine Bilirubin NEG NEG Urine Urobilinogen NEG NEG Urine Leukocyte Esterase NEG NEG Urine WBC (Auto) 1-5 0-5 /hpf Urine RBC (Auto) >30 0-4 /hpf Urine Hyaline Casts (Auto) 1-5 0-5 /lpf Urine Epithelial Cells (Auto) >30 0-5 /lpf Urine Bacteria (Auto) NEG NEG Impression Assessment and Plan The patient is an 86 year old female with a past medical history of hypertension , diabetes, hypothyroidism, and uterine prolapse that presents with weakness and fatigue 1) NSTEMI - Admit to Telemetry - Troponin 3.720 --> 4.570 --> repeat x 3 q6h - EKG: Rate of 76, no ischemic changes --> Repeat EKG Tomorrow AM - Metoprolol Tartrate 50mg PO BID - Aspirin 325mg PO now, 81mg PO QAM - Heparin drip - ECHO Complete - Cardiology consult 2) Acute hypoxic respiratory failure - Positive Influenza A and B - Tamiflu 75mg PO BID - Supplemental Oxygen as needed to maintain SpO2 > 92% 3) Diabetic Foot Ulcer - Left second toe foot ulceration - X-Ray of left foot - Wound Care consult - Continue home Bactrim 4) Diabetes - Blood glucose AC and HS - Sliding scale insulin - Holding home Metformin 5) Hypothyroidism - Continue home Synthroid 6) DVT - Heparin 7) Code Status - Full Resuscitation Attending addendum: I have physically seen this patient, have supervised the medical residents activities, and agree with the H&P unless as otherwise noted. Assessment and Plan: NSTEMI/hypertension-- The patient will be admitted to telemetry for serial cardiac enzymes, serial EKG's, cardiac rhythm monitoring and a 2-D echocardiogram with Dopplers. Aspirin 324mg chewable now, and 81 mg every morning Metoprolol tartrate 50 mg by mouth twice a day Nitropaste to ACW every 6 hours Heparin drip standard concentration per protocol. Was already given bolus by the ED Consult cardiology Acute respiratory failure with hypoxia/influenza A/influenza B-- Tamiflu 75 mg by mouth twice a day Nasal cannula oxygen titrated to keep pulse ox greater than or equal to 92% Xopenex/Atrovent nebulizer every 4 hours when necessary Diabetes mellitus/Diabetic foot ulcer of left second toe-- Continue Bactrim Order x-ray to assess for possible ostial Wound care consult Accu-Cheks before meals and at bedtime with NovoLog coverage per scale Hold metformin Level of Care Telemetry Resuscitation Status FULL RESUSCITATION VTE Prophylaxis VTE Risk Assessment Done? Y/N: Yes Risk Level: Moderate Given or contraindicated: Unfractionated heparin SQ Resident Tracking Resident Involvement: Resident Care Provided Care Provided: Adult Hospital Medicine
[2017-06-27] MEDS ORDERED: ASPIRIN 324 MG CHEW ONE (23:45)
[2017-06-28] VITALS (7 sets, daily range): BP systolic 110–148; BP diastolic 59–77; PULSE 60–98; TEMP 36.5–37.2; O2SAT 90–99; BMI 22.4
[2017-06-28 03:24] LABS: PTT PATIENT 78.3 SECONDS (21.0-31.0)
[2017-06-28] MEDS: HEPARIN 25,000 UNIT/500ML D5W 500 ML IV PRN (04:17)
[2017-06-28] MEDS: LEVOTHYROXINE 50 MCG TAB PO SCH (05:40)
[2017-06-28 06:58] LABS: BASO % 0.2 %; BASO ABS # 0.01 K/uL (0-0.2); EOS % 0.3 %; EOS ABS # 0.02 K/uL (0-0.5); HEMATOCRIT 28.7 % (37-47); HEMOGLOBIN 9.5 g/dL (12.0-16.0); IG# 0.03 K/uL (0.00-0.02); LYMPH % 9.7 %; LYMPH ABS # 0.62 K/uL (1.2-3.4); MEAN CELL VOLUME 92.6 fL (80-100); MEAN CORPUSCULAR HEMOGLOBIN 30.6 pg (25-34); MEAN CORPUSCULAR HGB CONC 33.1 g/dl (32-36); MEAN PLATELET VOLUME 10.3 fL (7.4-10.4); MONO % 5.3 %; MONO ABS # 0.34 K/uL (0.11-0.59); NEUT ABS # 5.34 K/uL (1.4-6.5); PLATELET COUNT 161 K/uL (130-400); RED CELL DISTRIBUTION WIDTH CV 13.2 % (11.5-14.5); RED CELL DISTRIBUTION WIDTH SD 44.6 fL (36.4-46.3); WHITE BLOOD COUNT 6.36 K/uL (4.8-10.8)
[2017-06-28] MEDS ORDERED: ATORVASTATIN 40 MG TAB PO ONE (07:30)
[2017-06-28 07:32] LABS: CALCIUM 7.7 mg/dl (8.5-10.1); CREATININE 1.07 mg/dl (0.60-1.20); POTASSIUM 3.4 mmol/L (3.5-5.1)
--- NOTE | 2017-06-28 07:36 | DIAGNOSTIC IMAGING REPORT ---
LEFT FOOT 2 VIEWS CLINICAL HISTORY: Toe ulceration. FINDINGS: AP and lateral views of the left foot are compared to study dated 06/13/2017. The skeletal structures are osteopenic. No fracture is seen. Pes planus is noted. Degenerative spurring is seen along the dorsal aspect of the tarsal bones and there is a large plantar calcaneal enthesophyte. Moderate arthritic changes present the first metatarsophalangeal joint. There is heterogeneous osteopenia involving the tuft of the second distal phalanx. Mild cortical destruction is suggested. Overlying soft tissue edema is noted. No additional foci of bony erosion or periostitis are seen. Atherosclerotic calcification is present in the regional arteries. Soft tissue edema is present throughout the foot. IMPRESSION: 1. Osteopenia, pes planus, and arthritic change as above. 2. Destructive change is suggested involving the tuft of the second distal phalanx with overlying soft tissues abnormality. The appearance is concerning for osteomyelitis. Clinical correlation will be required. Consider dedicated radiographs of the second toe. 3. Diffuse soft tissue edema throughout the foot suggests cellulitis. Clinical correlation will be required. Electronically signed by: Joaquin Jackson M.D. 06/28/2017 7:34 AM Dictated Date/Time: 06/28/2017 7:32 AM
[2017-06-28] MEDS: OSELTAMIVIR PHOSPHATE 75 MG CAP PO SCH ×2 (08:07→21:27)
[2017-06-28] MEDS: ASPIRIN 81 MG ECTAB PO SCH (08:07)
[2017-06-28] MEDS: TRIAMCINOLONE ACET 0.1% OINT 15 GM TUBE TOP SCH ×2 (08:08→21:00)
[2017-06-28] MEDS: INSULIN ASPART 100 UNITS/ML 3 ML PEN SC SCH ×4 (08:10→21:36)
[2017-06-28] MEDS: NITROGLYCERIN 2% OINTMENT 30GM TUBE EXT SCH ×2 (08:12→12:46)
[2017-06-28] MEDS ORDERED: SULFAMETHOXAZOLE/TRIMETHOPRIM DS 800/160MG TAB PO SCH (09:00)
[2017-06-28] MEDS ORDERED: METOPROLOL TARTRATE 50 MG TAB PO SCH (09:00)
--- NOTE | 2017-06-28 09:22 | Family Medicine Progress Note ---
Progress Note Date of Service Jun 28, 2017. Subjective Pt evaluation today including: conversation w/ patient, physical exam, chart review, lab review, review of studies, review of inpatient medication list Patient is feeling mostly back to her baseline this morning. She denies any chest pain, shortness of breath, palpitations, leg swelling, orthopnea or PND. Her nausea and vomiting have resolved and she is eating breakfast this morning when seen. She denies any abdominal pain. She notes she feels constipated but did have a hard bowel movement this morning. All Other Systems: Reviewed and Negative Medications Current Inpatient Medications Medications (Trade) Dose Ordered Sig/Thelma Route Start Time Stop Time Status Last Admin Dose Admin Ioversol (Optiray 320) 111 ml UD PRN IV 06/27/17 18:45 07/01/17 18:44 Nitroglycerin (Nitrostat Tab) 0.4 mg Q5M PRN SL 06/27/17 22:15 07/27/17 22:14 Aspirin (Ecotrin Tab) 81 mg QAM PO 06/28/17 09:00 07/28/17 08:59 06/28/17 08:07 81 MG Metoprolol Tartrate (Lopressor Tab) 50 mg Q12 PO 06/28/17 09:00 07/28/17 08:59 06/28/17 08:07 50 MG Ondansetron HCl (Zofran Tab) 4 mg Q4H PRN PO 06/27/17 22:15 07/27/17 22:14 Levothyroxine Sodium (Synthroid Tab) 50 mcg DAILYBB PO 06/28/17 06:00 07/28/17 05:59 06/28/17 05:40 50 MCG Trimethoprim/ Sulfamethoxazole (Septra Ds 800/ 160MG Tab) 1 tab BID PO 06/28/17 09:00 07/08/17 08:59 06/28/17 08:07 1 TAB Triamcinolone Acetonide (Kenalog 0.1% Oint) 1 appln BID TOP 06/28/17 09:00 07/28/17 08:59 06/28/17 08:08 1 APPLN Insulin Aspart (novoLOG ASPART) SLIDING SCALE If C... ACHS SC 06/28/17 07:00 07/28/17 06:59 06/28/17 08:10 3 UNITS Glucose (Glucose 40% Gel) 15-30 GRAMS 15 GRAMS... UD PRN PO 06/27/17 22:15 07/27/17 22:14 Glucose (Glucose Chew Tab) 4-8 Tablets 4 Tabl... UD PRN PO 06/27/17 22:15 07/27/17 22:14 Dextrose (Dextrose 50% 50ML Syringe) 25-50ML OF 50% DW IV FOR... UD PRN IV 06/27/17 22:15 07/27/17 22:14 Glucagon (Glucagon Inj) 1 mg UD PRN SQ 06/27/17 22:15 07/27/17 22:14 Oseltamivir Phosphate (Tamiflu Cap) 75 mg BID PO 06/28/17 09:00 07/03/17 08:59 06/28/17 08:07 75 MG Heparin Sodium/ Dextrose 500 ml @ 18 mls/hr Q24H PRN IV 06/28/17 01:00 07/28/17 00:59 06/28/17 04:17 18 MLS/HR Nitroglycerin (Nitroglycerin 2% Oint) 1 inch Q6H EXT 06/28/17 06:00 07/28/17 05:59 06/28/17 08:12 1 INCH Atorvastatin Calcium (Lipitor Tab) 40 mg QAM PO 06/29/17 09:00 07/29/17 08:59 Potassium Chloride (Klor-Con Tab) 40 meq NOW STAT PO 06/28/17 09:13 06/28/17 09:14 UNV Objective Vital Signs Date Time Temp Pulse Resp B/P (MAP) Pulse Ox O2 Delivery O2 Flow Rate FiO2 06/28/17 08:29 36.7 69 17 146/72 (96) 96 Room Air 06/28/17 04:00 Nasal Cannula 2.0 06/28/17 03:30 36.7 66 18 146/75 (98) 99 Nasal Cannula 2.0 06/28/17 00:19 37.0 70 18 138/68 98 Nasal Cannula 2.0 06/27/17 23:40 67 23 99 Nasal Cannula 3.0 06/27/17 23:30 145/68 06/27/17 23:25 70 28 95 06/27/17 23:10 72 17 99 06/27/17 23:00 157/77 06/27/17 22:55 74 18 98 06/27/17 22:45 37.3 06/27/17 22:40 78 19 98 06/27/17 22:30 147/75 06/27/17 22:25 70 25 97 06/27/17 22:10 75 24 97 06/27/17 22:05 78 18 97 06/27/17 22:00 140/77 06/27/17 21:54 79 06/27/17 21:50 76 27 96 06/27/17 21:35 76 26 95 06/27/17 21:30 76 25 141/82 95 06/27/17 21:15 82 17 96 06/27/17 21:00 79 23 149/90 93 06/27/17 20:45 82 28 95 Nasal Cannula 3.0 06/27/17 20:30 86 13 91 06/27/17 20:15 86 27 90 06/27/17 20:11 178/87 06/27/17 20:00 85 21 86 Room Air 06/27/17 20:00 Nasal Cannula 2.0 06/27/17 19:45 85 19 91 06/27/17 19:30 83 17 130/86 06/27/17 19:27 157/72 06/27/17 18:55 78 22 144/86 93 Room Air 06/27/17 17:50 77 06/27/17 16:09 37.5 87 18 129/78 95 Room Air Physical Exam General Appearance: no apparent distress, + thin Eyes: normal inspection (pupils equal) ENT: pharynx normal Neck: supple, no JVD, trachea midline Respiratory/Chest: lungs clear, normal breath sounds, no respiratory distress, no accessory muscle use Cardiovascular: regular rate, rhythm, no JVD, no murmur, + normal peripheral pulses (DP, PT left foot palpable and equal) Abdomen: normal bowel sounds, non tender, soft Extremities: no pedal edema, no calf tenderness, normal capillary refill, + pertinent finding (left 2nd toe tip old wound which appears to be healing well ( pt under wound clinic)) 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 (no facial droop), no motor/ sensory deficits (grossly moving all 4 limbs), alert, oriented x 3 Laboratory Results 06/28/17 05:57 Red Blood Count 3.10, Mean Corpuscular Volume 92.6, Mean Corpuscular Hemoglobin 30.6, Mean Corpuscular Hemoglobin Concent 33.1, Mean Platelet Volume 10.3, Neutrophils (%) (Auto) 84.0, Lymphocytes (%) (Auto) 9.7, Monocytes (%) (Auto) 5.3, Eosinophils (%) (Auto) 0.3, Basophils (%) (Auto) 0.2, Neutrophils # (Auto) 5.34, Lymphocytes # (Auto) 0.62, Monocytes # (Auto) 0.34, Eosinophils # (Auto) 0.02, Basophils # (Auto) 0.01 06/28/17 05:57 Test 06/27/17 17:05 06/27/17 17:35 06/27/17 20:24 06/27/17 20:40 Lactic Acid Level 1.4 mmol/L (0.4-2.0) Total Bilirubin 0.5 mg/dl (0.2-1) Direct Bilirubin 0.1 mg/dl (0-0.2) Aspartate Amino Transf (AST/SGOT) 81 U/L (15-37) Alanine Aminotransferase (ALT/SGPT) 40 U/L (12-78) Alkaline Phosphatase 74 U/L (45-117) Pro-B-Type Natriuretic Peptide 86383 pg/ml (0-1800) Total Protein 6.9 gm/dl (6.4-8.2) Albumin 2.6 gm/dl (3.4-5.0) Lipase 72 U/L (73-393) Influenza Type A Antigen POS for Influ A (NEG) Influenza Type B Antigen POS for Influ B (NEG) Prothrombin Time 11.9 SECONDS (9.0-12.0) Prothromb Time International Ratio 1.1 (0.9-1.1) Urine Color YELLOW Urine Appearance CLEAR (CLEAR) Urine pH 5.5 (4.5-7.5) Urine Specific [place] 1.037 (1.000-1.030) Urine Protein 1+ (NEG) Urine Glucose (UA) TRACE (NEG) Urine Ketones TRACE (NEG) Urine Occult Blood 3+ (NEG) Urine Nitrite NEG (NEG) Urine Bilirubin NEG (NEG) Urine Urobilinogen NEG (NEG) Urine Leukocyte Esterase NEG (NEG) Urine WBC (Auto) 1-5 /hpf (0-5) Urine RBC (Auto) >30 /hpf (0-4) Urine Hyaline Casts (Auto) 1-5 /lpf (0-5) Urine Epithelial Cells (Auto) >30 /lpf (0-5) Urine Bacteria (Auto) NEG (NEG) Test 06/28/17 02:43 06/28/17 05:57 06/28/17 06:25 06/28/17 08:24 Activated Partial Thromboplast Time 78.3 SECONDS (21.0-31.0) Partial Thromboplastin Ratio 3.0 White Blood Count 6.36 K/uL (4.8-10.8) Red Blood Count 3.10 M/uL (4.2-5.4) Hemoglobin 9.5 g/dL (12.0-16.0) Hematocrit 28.7 % (37-47) Mean Corpuscular Volume 92.6 fL (80-100) Mean Corpuscular Hemoglobin 30.6 pg (25-34) Mean Corpuscular Hemoglobin Concent 33.1 g/dl (32-36) Platelet Count 161 K/uL (130-400) Mean Platelet Volume 10.3 fL (7.4-10.4) Neutrophils (%) (Auto) 84.0 % Lymphocytes (%) (Auto) 9.7 % Monocytes (%) (Auto) 5.3 % Eosinophils (%) (Auto) 0.3 % Basophils (%) (Auto) 0.2 % Neutrophils # (Auto) 5.34 K/uL (1.4-6.5) Lymphocytes # (Auto) 0.62 K/uL (1.2-3.4) Monocytes # (Auto) 0.34 K/uL (0.11-0.59) Eosinophils # (Auto) 0.02 K/uL (0-0.5) Basophils # (Auto) 0.01 K/uL (0-0.2) RDW Standard Deviation 44.6 fL (36.4-46.3) RDW Coefficient of Variation 13.2 % (11.5-14.5) Immature Granulocyte % (Auto) 0.5 % Immature Granulocyte # (Auto) 0.03 K/uL (0.00-0.02) Anion Gap 8.0 mmol/L (3-11) Est Creatinine Clear Calc Drug Dose 31.4 ml/min Estimated GFR () 53.7 Estimated GFR (Non- 46.3 BUN/Creatinine Ratio 15.7 (10-20) Calcium Level 7.7 mg/dl (8.5-10.1) Triglycerides Level 54 mg/dl (0-150) Cholesterol Level 121 mg/dl (0-200) HDL Cholesterol 45 mg/dl LDL Cholesterol, Calculated 65 mg/dl VLDL Cholesterol, Calculated 11 mg/dl Cholesterol/HDL Ratio 2.7 Bedside Glucose 189 mg/dl (70-90) Assessment and Plan 86 year old female with a past medical history of hypertension, diabetes, hypothyroidism, and uterine prolapse that presents with vomiting, weakness and fatigue NSTEMI - given degree of troponin elevation I suspect this is due to CAD rather than demand however echo is pending at this stage. 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 although her vomiting episode is unliekly to be related to this given her rapid resolution - Will continue with full tamiflu course however as difficult to rule out Diabetic Foot Ulcer, suspected osteomyelitis/cellulitis - Left second toe foot ulceration - Destructive change is suggested involving the tuft of the second distal phalanx - Consult ID - Wound Care consult - Continue home Bactrim for now pending Type 2 diabetes - Blood glucose AC and HS - Sliding scale insulin - Holding home Metformin Hypothyroidism - Continue home Synthroid VTE Prophylaxis - Continue heparin IV drip pending cardiology review Code Status - Full Resuscitation Disposition - continue on telemetry due to NSTEMI Resident Tracking Resident Involvement: Resident Care Provided Care Provided: Adult Hospital Medicine Reviewed: Pt Seen/Exam by Me History no concerns this am Constitutional: denies: fever Respiratory: positive: cough (mild), negative: short of breath Cardiovascular: denies chest pain General Appearance: no apparent distress Respiratory: no respiratory distress, decreased breath sounds Cardiovascular: regular rate, rhythm Gastrointestinal: soft Neurologic/Psychiatric: alert, oriented x 3 Skin Characteristics: warm/dry Assessment/Plan Resident Physician Supervision Note: I independently interviewed and examined the patient and verified the chiang history and physical, reviewed labs and image studies, discussed the case with the resident Dr. Lord and agree with the findings and care plan.
--- NOTE | 2017-06-28 09:25 | Cardiology Consultation ---
Cardiology Consultation Date of Consultation: Jun 28, 2017. Pt evaluation today including: conversation w/ patient, conversation w/ family , physical exam, chart review, lab review, review of studies History of Present Illness This note is written by Lia Yao PGY1 [facility] Med Resident. Please see Dr. Holguin's note for recommendations. Ms. Dyson is a 86 year old female admitted for weakness and fatigue, found to have EKG changes suggestive of NSTEMI. Past medical history is significant for controlled hypertension, uncontrolled diabetes, controlled hypothyroidism, and chronic uterine prolapse. Pt is a poor historian, and I was able to discuss with her sister with whom she lives currently. Her sister states that yesterday pt was unwell, with chills and vomiting in the morning, dry cough that was not improving so she brought her in to the ED. In the ED she was found to be positive for influenza and also had EKG changes. Pt states she feels well today, denies chest pain, syncope, SOB, orthopnea. Pt and daughter states that she has had chronic leg swelling for at least one year , with no significant change here in the last month, sister states she elevates her legs as much as she can. Pt denies any history of heart attack. Pt has not had a formal diagnosis of dementia, although her sister states that she is generally "forgetful" and forgets to take medicines. She states that pt appears at baseline today. PMH: T2DM, Hypothyroidism, Hyperlipidemia, uterine prolapse PSH: denies FH: no known premature coronary artery disease SH: lives in her home with sister, and son-in-law and daughter help take care of her. Uses a walker. Denies tobacco or etoh. Social History Smoking Status: Never Smoker History of Alcohol Use: No Review of Systems Constitutional: + see HPI Respiratory: + see HPI Cardiac: + see HPI Abdomen: No pain, No vomiting, No diarrhea, No constipation Allergies Coded Allergies: No Known Allergies (Unverified , 01/03/17) Medications Current Inpatient Medications Medications (Trade) Dose Ordered Sig/Thelma Route Start Time Stop Time Status Last Admin Dose Admin Ioversol (Optiray 320) 111 ml UD PRN IV 06/27/17 18:45 07/01/17 18:44 Nitroglycerin (Nitrostat Tab) 0.4 mg Q5M PRN SL 1/10/18 22:15 07/27/17 22:14 Aspirin (Ecotrin Tab) 81 mg QAM PO 06/28/17 09:00 07/28/17 08:59 06/28/17 08:07 81 MG Metoprolol Tartrate (Lopressor Tab) 50 mg Q12 PO 06/28/17 09:00 07/28/17 08:59 06/28/17 08:07 50 MG Ondansetron HCl (Zofran Tab) 4 mg Q4H PRN PO 06/27/17 22:15 07/27/17 22:14 Levothyroxine Sodium (Synthroid Tab) 50 mcg DAILYBB PO 06/28/17 06:00 07/28/17 05:59 06/28/17 05:40 50 MCG Trimethoprim/ Sulfamethoxazole (Septra Ds 800/ 160MG Tab) 1 tab BID PO 06/28/17 09:00 07/08/17 08:59 06/28/17 08:07 1 TAB Triamcinolone Acetonide (Kenalog 0.1% Oint) 1 appln BID TOP 06/28/17 09:00 07/28/17 08:59 06/28/17 08:08 1 APPLN Insulin Aspart (novoLOG ASPART) SLIDING SCALE If C... ACHS SC 06/28/17 07:00 07/28/17 06:59 06/28/17 08:10 3 UNITS Glucose (Glucose 40% Gel) 15-30 GRAMS 15 GRAMS... UD PRN PO 06/27/17 22:15 07/27/17 22:14 Glucose (Glucose Chew Tab) 4-8 Tablets 4 Tabl... UD PRN PO 06/27/17 22:15 07/27/17 22:14 Dextrose (Dextrose 50% 50ML Syringe) 25-50ML OF 50% DW IV FOR... UD PRN IV 06/27/17 22:15 07/27/17 22:14 Glucagon (Glucagon Inj) 1 mg UD PRN SQ 06/27/17 22:15 07/27/17 22:14 Oseltamivir Phosphate (Tamiflu Cap) 75 mg BID PO 06/28/17 09:00 07/03/17 08:59 06/28/17 08:07 75 MG Heparin Sodium/ Dextrose 500 ml @ 18 mls/hr Q24H PRN IV 06/28/17 01:00 07/28/17 00:59 06/28/17 04:17 18 MLS/HR Nitroglycerin (Nitroglycerin 2% Oint) 1 inch Q6H EXT 06/28/17 06:00 07/28/17 05:59 06/28/17 08:12 1 INCH Atorvastatin Calcium (Lipitor Tab) 40 mg QAM PO 06/29/17 09:00 07/29/17 08:59 Physical Exam Vital Signs Past 12 Hours Date Time Temp Pulse Resp B/P (MAP) Pulse Ox O2 Delivery O2 Flow Rate FiO2 06/28/17 08:29 36.7 69 17 146/72 (96) 96 Room Air 06/28/17 04:00 Nasal Cannula 2.0 06/28/17 03:30 36.7 66 18 146/75 (98) 99 Nasal Cannula 2.0 06/28/17 00:19 37.0 70 18 138/68 98 Nasal Cannula 2.0 06/27/17 23:40 67 23 99 Nasal Cannula 3.0 06/27/17 23:30 145/68 06/27/17 23:25 70 28 95 06/27/17 23:10 72 17 99 06/27/17 23:00 157/77 06/27/17 22:55 74 18 98 06/27/17 22:45 37.3 06/27/17 22:40 78 19 98 06/27/17 22:30 147/75 06/27/17 22:25 70 25 97 06/27/17 22:10 75 24 97 06/27/17 22:05 78 18 97 06/27/17 22:00 140/77 06/27/17 21:54 79 06/27/17 21:50 76 27 96 06/27/17 21:35 76 26 95 06/27/17 21:30 76 25 141/82 95 06/27/17 21:15 82 17 96 06/27/17 21:00 79 23 149/90 93 Constitutional: General Apperance: heathly-appearing Level of Distress: NAD Ambulation: ambulation with walker Lungs: Respiratory effort: no dyspnea, good air movement Auscultation: breath sounds normal, no wheezing, no rales/crackles Cardiovascular: Heart Auscultation: RRR, normal S1, normal S2, no murmurs, no rubs, no gallops Peripheral Pulses: Bruits: none appreciated Carotid Pulse: normal on the left, normal on the right Radial Pulse: normal on the left, normal on the right Femoral Pulse: decreased on the left, decreased on the right Abdomen: Bowel Sounds: normal Inspection & Palpation: soft, no tenderness, guarding & rebound Extremities: edema (trace edema in BLE) Data Laboratory Results: Last 24 Hours Test 06/27/17 17:05 06/27/17 17:35 06/27/17 20:24 06/27/17 20:40 White Blood Count 10.20 K/uL Red Blood Count 3.30 M/uL Hemoglobin 10.3 g/dL Hematocrit 30.7 % Mean Corpuscular Volume 93.0 fL Mean Corpuscular Hemoglobin 31.2 pg Mean Corpuscular Hemoglobin Concent 33.6 g/dl Platelet Count 176 K/uL Mean Platelet Volume 10.1 fL Neutrophils (%) (Auto) 94.3 % Lymphocytes (%) (Auto) 2.9 % Monocytes (%) (Auto) 2.2 % Eosinophils (%) (Auto) 0.0 % Basophils (%) (Auto) 0.1 % Neutrophils # (Auto) 9.62 K/uL Lymphocytes # (Auto) 0.30 K/uL Monocytes # (Auto) 0.22 K/uL Eosinophils # (Auto) 0.00 K/uL Basophils # (Auto) 0.01 K/uL RDW Standard Deviation 44.8 fL RDW Coefficient of Variation 13.1 % Immature Granulocyte % (Auto) 0.5 % Immature Granulocyte # (Auto) 0.05 K/uL Sodium Level 135 mmol/L Potassium Level 4.3 mmol/L Chloride Level 101 mmol/L Carbon Dioxide Level 26 mmol/L Anion Gap 8.0 mmol/L Blood Urea Nitrogen 16 mg/dl Creatinine 1.17 mg/dl Estimated GFR () 48.2 Estimated GFR (Non- 41.6 BUN/Creatinine Ratio 13.9 Random Glucose 283 mg/dl Lactic Acid Level 1.4 mmol/L Calcium Level 8.2 mg/dl Total Bilirubin 0.5 mg/dl Direct Bilirubin 0.1 mg/dl Aspartate Amino Transf (AST/SGOT) 81 U/L Alanine Aminotransferase (ALT/SGPT) 40 U/L Alkaline Phosphatase 74 U/L Troponin I 3.720 ng/ml 4.570 ng/ml Pro-B-Type Natriuretic Peptide 95220 pg/ml Total Protein 6.9 gm/dl Albumin 2.6 gm/dl Lipase 72 U/L Influenza Type A Antigen POS for Influ A Influenza Type B Antigen POS for Influ B Prothrombin Time 11.9 SECONDS Prothromb Time International Ratio 1.1 Activated Partial Thromboplast Time 27.0 SECONDS Partial Thromboplastin Ratio 1.0 Urine Color YELLOW Urine Appearance CLEAR Urine pH 5.5 Urine Specific [place] 1.037 Urine Protein 1+ Urine Glucose (UA) TRACE Urine Ketones TRACE Urine Occult Blood 3+ Urine Nitrite NEG Urine Bilirubin NEG Urine Urobilinogen NEG Urine Leukocyte Esterase NEG Urine WBC (Auto) 1-5 /hpf Urine RBC (Auto) >30 /hpf Urine Hyaline Casts (Auto) 1-5 /lpf Urine Epithelial Cells (Auto) >30 /lpf Urine Bacteria (Auto) NEG Test 06/28/17 02:43 06/28/17 05:57 06/28/17 06:25 06/28/17 08:24 Activated Partial Thromboplast Time 78.3 SECONDS Partial Thromboplastin Ratio 3.0 Troponin I 6.870 ng/ml White Blood Count 6.36 K/uL Red Blood Count 3.10 M/uL Hemoglobin 9.5 g/dL Hematocrit 28.7 % Mean Corpuscular Volume 92.6 fL Mean Corpuscular Hemoglobin 30.6 pg Mean Corpuscular Hemoglobin Concent 33.1 g/dl Platelet Count 161 K/uL Mean Platelet Volume 10.3 fL Neutrophils (%) (Auto) 84.0 % Lymphocytes (%) (Auto) 9.7 % Monocytes (%) (Auto) 5.3 % Eosinophils (%) (Auto) 0.3 % Basophils (%) (Auto) 0.2 % Neutrophils # (Auto) 5.34 K/uL Lymphocytes # (Auto) 0.62 K/uL Monocytes # (Auto) 0.34 K/uL Eosinophils # (Auto) 0.02 K/uL Basophils # (Auto) 0.01 K/uL RDW Standard Deviation 44.6 fL RDW Coefficient of Variation 13.2 % Immature Granulocyte % (Auto) 0.5 % Immature Granulocyte # (Auto) 0.03 K/uL Sodium Level 136 mmol/L Potassium Level 3.4 mmol/L Chloride Level 101 mmol/L Carbon Dioxide Level 27 mmol/L Anion Gap 8.0 mmol/L Blood Urea Nitrogen 17 mg/dl Creatinine 1.07 mg/dl Est Creatinine Clear Calc Drug Dose 31.4 ml/min Estimated GFR () 53.7 Estimated GFR (Non- 46.3 BUN/Creatinine Ratio 15.7 Random Glucose 183 mg/dl Calcium Level 7.7 mg/dl Triglycerides Level 54 mg/dl Cholesterol Level 121 mg/dl HDL Cholesterol 45 mg/dl LDL Cholesterol, Calculated 65 mg/dl VLDL Cholesterol, Calculated 11 mg/dl Cholesterol/HDL Ratio 2.7 Bedside Glucose 189 mg/dl Imaging: EKG: Telemetry reviewed: Assessment & Plan This note is written by Lia Yao PGY1 [facility] Med Resident. Please see Dr. Holguin's note for formal assessment and plan. Cardiology consulted to assess EKG changes suggestive of NSTEMI and elevated troponins x3 3.7, 4.5, 6.8. In speaking with the patient today, she is asymptomatic and stable, feeling better than yesterday. It is possible her EKG changes are due to acute influenza illness, as well as stress from her other comorbidities. Given this, this pt may not be an ideal candidate for interventional catheterization. Recommend to treat her inferior wall OK medically as below. Inferior wall NSTEMI - EKG reviewed, and changes are consistent with NSTEMI - Pt is currently asymptomatic. Preliminary ECHO shows inferior wall motion abnormalities, hypokinesis. - continue nitrostat prn, aspirin 81mg QAM, Lopressor 50mg BID, atorvastatin 40mg QAM Electrolyte abnormality - Hypokalemia K 3.4. - Ordered 40 meq PO. - Agree with Dr. Lord ordering Mg check as well. Influenza - continue Tamiflu per hospitalist team Type 2 DM - uncontrolled. Last A1C in PCP office in May was 10.4. - continue glycemic control, BSG checks, diabetic diet. Hyperlipidemia - controlled. Continue statin. Hypothyroidism - controlled, continue current meds per hospitalist team Foot ulcer - continue wound care and Trimethoprim/Sulfamethoxazole (Septra Ds 800/ 160MG Tab) PO BID This note is written by Lia Yao PGY1 [facility] Med Resident. Please see Dr. Holguin's note. ADDENDUM BY CARDIOLOGY ATTENDING: SEE MY NOTE.
[2017-06-28] MEDS ORDERED: POTASSIUM CHLORIDE 20 MEQ TABCR PO ONE (09:30)
--- NOTE | 2017-06-28 11:27 | CARDIOLOGY CONSULTATION ---
DATE OF CONSULTATION: 06/28/2017 TIME: 10:52 a.m. CONSULTING PHYSICIAN: Dr. Lozada. REASON FOR CONSULTATION: Non-ST elevation myocardial infarction. HISTORY OF PRESENT ILLNESS: Ms. Dyson is a pleasant 86-year-old female with a history significant for poorly controlled diabetes, hypertension and dyslipidemia. She presented to the hospital with weakness, nausea, vomiting and issues with her balance. Most of the history is provided by her sister who is present at the bedside. Her sister recently moved in with her to help take care of her and states that she has to do most of her care for her. Her son-in-law is also present at the bedside. Her sister states that the patient felt ill and had a vomiting episode. She had shaking chills and was very off balance and weak. She also had a dry cough. There is no reported fevers, chest pain, syncope, near syncope, shortness of breath, palpitations or worsening edema. She apparently has chronic lower extremity edema, which has been described as stable. She came to the Emergency Department for further evaluation. Initial ECG demonstrated sinus rhythm with PACs and nonspecific T-wave abnormality. Repeat ECGs demonstrated T-wave inversions in the inferior leads. Her QT was also prolonged. She denies any chest discomfort at any time and no shortness of breath. She was also found to have influenza A and influenza B and has been started on Tamiflu by the primary service. Her troponin levels were evaluated and were found to be elevated. There is no known coronary artery disease for Ms. Dyson. 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 She ambulates with a walker. Once again, she requires much help from her family. REVIEW OF SYSTEMS: As above. Review of systems is otherwise negative or unremarkable. She is also a poor historian and therefore review of systems is limited in that regard. PAST MEDICAL HISTORY: 1. Hypertension. 2. Diabetes, reportedly poorly controlled with a hemoglobin A1c of 10.4 in May of 2017. 3. Dyslipidemia. 4. Hypothyroidism. 5. Uterine prolapse. 6. Lower extremity ulcer. HOME MEDICATIONS: Include, 1. Amoxicillin for her ulcer. 2. Atenolol 25 mg p.o. b.i.d. 3. Levothyroxine. 4. Metformin. 5. Bactrim. 6. Triamcinolone. CURRENT INPATIENT MEDICATIONS: Include aspirin 81 mg daily, Lipitor 40 mg daily, Lasix 20 mg IV x1, heparin drip per protocol, levothyroxine 50 mcg daily, metoprolol tartrate 50 mg p.o. q. 12 hours, Tamiflu 75 mg p.o. b.i.d. and Bactrim. ALLERGIES: No known drug allergies. SOCIAL HISTORY: Denies tobacco, alcohol or drug abuse. She lived alone, but her sister moved in to help her. Her son-in-law and her sister are present at the bedside. FAMILY HISTORY: No known premature CAD. PHYSICAL EXAMINATION: VITAL SIGNS: Temperature 36.7 degrees, heart rate 69 beats per minute, respiratory rate 17, blood pressure 146/72 mmHg, and oxygen saturation is 96% on room air. I's and O's negative 900 mL so far today. Weight is 59.2 kg. GENERAL: No acute distress. She is alert and oriented x3. HEENT: Anicteric sclerae. NECK: No appreciable JVD. No bruits. Normal carotid upstrokes bilaterally. CARDIAC EXAMINATION: PMI was nondisplaced. There was no ventricular heave. Regular, normal S1 and S2. There were no audible murmurs, rubs or gallops. LUNGS: Clear to auscultation bilaterally without wheezes, rales or rhonchi. ABDOMEN: Soft, nontender, and nondistended. Normoactive bowel sounds. No bruits noted. EXTREMITIES: 2+ radial pulses bilaterally. 1+ dorsalis pedis pulses bilaterally. No cyanosis. No palpable cords. No significant pitting edema. PSYCHIATRIC: Affect appears appropriate. LABORATORY DATA: Sodium 136, potassium 3.4, BUN 17, and creatinine 1.07. Peak troponin 6.87. Total cholesterol 121, LDL 65, HDL 45, and triglycerides 54. WBC 6.36, hemoglobin 9.5, and platelets 161. PTT is 63. Influenza type A and type B antigens are positive. Chest x-ray image personally reviewed. No obvious infiltrate. Radiology has reported small left and trace right pleural effusions. Bibasilar opacities per radiology. Pulmonary vascular congestion with possible mild pulmonary edema per radiology. ECGs personally reviewed as noted above. Echocardiogram images from today personally reviewed. Preliminary review prior to formal review demonstrated moderately reduced LV systolic function with akinesis of the inferior wall and inferolateral base. There appeared to be possibly mild aortic stenosis and moderate mitral regurgitation. Telemetry personally reviewed. There was a brief episode of accelerated junctional rhythm. ASSESSMENT AND PLAN: 1. Non-ST elevation myocardial infarction: She did not present with acute coronary syndrome and no angina or heart failure symptoms. She presented with flu-like symptoms. It would not be surprising if she had underlying coronary artery disease given her advanced age and comorbidities with poorly controlled diabetes. Agree with aspirin, high intensity statin therapy, and beta tamara. Treatment strategies were discussed. Recommend conservative approach with medical therapy rather than invasive measures at this time given her lack of angina and the fact that she is currently infected with a flu virus. The patient and family at the bedside agree. 2. Cardiomyopathy: Likely ischemic cardiomyopathy. Recommend metoprolol succinate in place of metoprolol tartrate. Recommend low dose FLACO inhibitor. She appears euvolemic. 3. Hypertension: Blood pressure has been normotensive to mildly hypertensive. We will start FLACO inhibitor as noted above. 4. Dyslipidemia: Agree with high intensity statin therapy. 5. Diabetes: Poorly controlled. Defer treatment to primary service. 6. Influenza infection: As per primary service. 7. Disposition: Cardiology will continue to follow. Can continue heparin, but would discontinue for any bleeding. Heparin should be discontinued after 48 hours. Highly complex medical issues.
[2017-06-28 14:32] LABS: CALCIUM 7.9 mg/dl (8.5-10.1); CREATININE 1.23 mg/dl (0.60-1.20); POTASSIUM 4.3 mmol/L (3.5-5.1)
--- NOTE | 2017-06-28 14:42 | Progress Note ---
Progress Note Date of Service Jun 28, 2017. Progress Note ID Consult Dictated #[id number] A/P: 1.toe osteo 2.Flu -Will change to keflex, continue 4-6 weeks, continue local wound care -Continue tamiflu -Can follow with ID post d/c from hospital in wound center -thank you
--- NOTE | 2017-06-28 14:48 | ECHOCARDIOGRAM REPORT ---
*NOTICE TO RECEIVING DEMOCRAT AGENCY This information is strictly Confidential and protected under [place] law. [place] law prohibits you from making any further disclosure of this information unless further disclosure is expressly permitted by the written consent of the person to whom it pertains or is authorized by law. A general authorization for the release of medical or other information is not sufficient for this purpose. Hospital accepts no responsibility if the information is made available to any other person, INCLUDING THE PATIENT. Interpretation Summary * Name: ALLISON SALDANA Study Date: 06/28/2017 06:44 AM BP: 146/75 mmHg * Patient Location: [id number].2E\[id number]\E202\S\1 HR: 66 * : 1930 (M/d/yyyy) Gender: Female Height: 63 in * Age: 86 yrs Ethnicity: [place] Weight: 141 lb * Ordering Physician: Leonardo Lozada * Referring Physician: Margarita Villegas * Performed By: Namita Leal RCS * * Reason For Study: Elevated Troponin * BSA: 1.7 m2 * -- Conclusions -- * 1. Normal LV size, asymmetric basal septal hypertrophy. * 2. Mild LV dysfunction. LVEF 40-45%. Inferior akinesis, severe inferolateral hypokinesis. * 3. Normal RV size and function. * 4. Severe biatrial enlargment. * 5. Moderate mitral regurgitation. * 6. Aortic valve sclerosis. * 7. Mild pulmonary regurgitation. * 8. Mild TR. Borderline pulmonary hypertension, Est PASP 35-40 mmHg. Est CVP 8 mmHg. * 9. No prior studies for comparison. Procedure Details * A complete two-dimensional transthoracic echocardiogram was performed (2D, M-mode, Doppler and color flow Doppler). Left Ventricle * The left ventricle is grossly normal size. * Focal thickening of the basal septum with no evidence of left ventricular outflow obstruction. * Ejection Fraction = 40-45%. * There is inferior wall akinesis. * There is severe anterior wall hypokinesis. Right Ventricle * The right ventricle is grossly normal size. * The right ventricular systolic function is normal as assessed by tricuspid annular plane systolic excursion (TAPSE) (normal >1.5 cm). Atria * The left atrium is severely dilated. * The right atrium is severely dilated. * No ASD detected; PFO is not assessed. Mitral Valve * There is moderate mitral annular calcification. * The mitral papillary muscle appears thickened and/or calcified. * There is no mitral valve stenosis. * There is moderate mitral regurgitation. Tricuspid Valve * The tricuspid valve is not well visualized, but is grossly normal. * There is no tricuspid stenosis. * There is mild tricuspid regurgitation. Aortic Valve * Aortic valve sclerosis mild, without significant aortic valvular stenosis. * The aortic valve is trileaflet. * No hemodynamically significant valvular aortic stenosis. * There is no significant aortic regurgitation. Pulmonic Valve * The pulmonary valve is inadequately visualized, but the Doppler data is adequate for interpretation. * Pulmonic stenosis is absent. * Mild pulmonic valvular regurgitation. Great Vessels * The aortic root and proximal ascending aorta are normal sized. Pericardium/Pleural * There is no pericardial effusion. * Small left pleural effusion. Great Vessels * IVC > 2.1, > 50% change with respiration. Est RA 8 mmHg. Left Ventricular Diastolic Function * Diastolic dysfunction, Grade II (pseudonormalization pattern). MMode 2D Measurements and Calculations IVSd 1.1 cm IVSs 1.7 cm LVIDd 5.4 cm LVIDs 4.2 cm LVPWd 1.1 cm LVPWs 1.6 cm IVS/LVPW 1.0 FS 22.3 % EDV(Teich) 142.9 ml ESV(Teich) 79.3 ml EF(Teich) 44.5 % EDV(cubed) 159.7 ml ESV(cubed) 75.0 ml EF(cubed) 53.1 % % IVS thick 62.5 % % LVPW thick 47.7 % LV mass(C)d 224.8 grams LV mass(C)dI 134.9 grams/m\S\2 LV mass(C)s 289.5 grams LV mass(C)sI 173.7 grams/m\S\2 SV(Teich) 63.6 ml SI(Teich) 38.1 ml/m\S\2 SV(cubed) 84.8 ml SI(cubed) 50.9 ml/m\S\2 asc Aorta Diam 2.9 cm LVAd ap4 32.6 cm\S\2 LVLd ap4 8.0 cm EDV(MOD-sp4) 108.2 ml EDV(sp4-el) 113.1 ml LVAs ap4 23.9 cm\S\2 LVLs ap4 7.1 cm ESV(MOD-sp4) 67.3 ml ESV(sp4-el) 67.7 ml EF(MOD-sp4) 37.8 % EF(sp4-el) 40.2 % EDV(MOD-sp2) 115.0 ml ESV(MOD-sp2) 70.0 ml EF(MOD-sp2) 39.1 % SV(MOD-sp4) 41.0 ml SI(MOD-sp4) 24.6 ml/m\S\2 SV(MOD-sp2) 45.0 ml SI(MOD-sp2) 27.0 ml/m\S\2 SV(sp4-el) 45.4 ml SI(sp4-el) 27.3 ml/m\S\2 Doppler Measurements and Calculations MV E max airam 95.3 cm/sec MV A max airam 47.9 cm/sec MV E/A 2.0 MV P1/2t max airam 94.4 cm/sec MV P1/2t 97.1 msec MVA(P1/2t) 2.3 cm\S\2 MV dec slope 284.8 cm/sec\S\2 MV dec time 0.24 sec Ao V2 max 194.0 cm/sec Ao max PG 15.1 mmHg Ao max PG (full) 12.1 mmHg LV V1 max PG 3.0 mmHg LV V1 max 86.0 cm/sec PA V2 max 107.4 cm/sec PA max PG 4.7 mmHg PI max airam 208.2 cm/sec PI max PG 17.3 mmHg PI dec slope 153.4 cm/sec\S\2 PI P1/2t 397.5 msec TR max airam 308.0 cm/sec
--- NOTE | 2017-06-28 14:59 | INFECT. DISEASE CONSULTATION ---
DATE OF CONSULTATION: 06/28/2017 HISTORY OF PRESENT ILLNESS: This is an 86-year-old female who was admitted after she was found to be increasingly weak and fatigued at home. She did have 2 episodes of vomiting prior to admission. It was noted that she also had a dry cough. A flu swab was positive for influenza A and B. She has been on Tamiflu and tolerating this well. She is in droplet precautions. Since admission to the hospital, she has been afebrile and hemodynamically stable. She was also found to have positive troponins and a non-ST elevated IL. She recently was being followed at the wound care center for a right second toe ulceration. A culture dated June 21 is growing group B strep and MSSA. She was started on Bactrim by the wound care service. She had not previously been evaluated by infectious diseases. ID was consulted on this admission for toe osteomyelitis. She currently states she has no cough, shortness of breath or chest pain. She is on room air. She has no nausea, vomiting or diarrhea. She states overall she is feeling better. Her remaining review of systems is unremarkable. PAST MEDICAL HISTORY: Significant for high cholesterol, type 2 diabetes, hypertension, hypothyroidism, uterine prolapse and osteomyelitis of the left second toe. FAMILY HISTORY: Noncontributory. SOCIAL HISTORY: Negative for tobacco use, alcohol use or drug use. ALLERGIES: She has no known drug allergies. CURRENT MEDICATIONS: Include Lipitor, aspirin, Lopressor, Bactrim, Tamiflu, insulin, Synthroid, Zofran. PHYSICAL EXAMINATION: VITAL SIGNS: She is afebrile, pulse is 60, respiratory rate is 19, blood pressure is 130/59, oxygen saturation is 95% on room air. GENERAL: She is awake, alert and oriented x3. She is in no acute distress. HEENT: Mucous membranes are moist. Extraocular muscles are intact. HEART: Regular. LUNGS: Decreased, but clear bilaterally. ABDOMEN: Soft, nontender, and nondistended. There is no lower extremity edema. SKIN: Without rash. Dressing over the left foot is clean, dry and intact. LABORATORY STUDIES: Old micro from the reveals MSSA and group B strep, which was resistant to azithromycin and clindamycin. CBC today reveals a white blood cell count of 6.3, hemoglobin 9.5 and platelets of 161. Chemistry panel reveals a sodium of 135, potassium 4.3, chloride 102, bicarbonate 28, BUN 22, creatinine 1.2 and glucose is 159. Troponins are trending down. Urinalysis was unremarkable. Flu swab was positive. No blood cultures were obtained on this admission. Foot x-ray done on the shows destructive changes on the second distal phalanx concerning for osteomyelitis. CT of the abdomen and pelvis was done yesterday and showed no evidence of infection. Her most recent chest x-ray was done yesterday as well, which shows trace right effusion, questionable bilateral opacities, which could be pneumonia and/or atelectasis. ASSESSMENT AND PLAN: 1. Toe osteomyelitis with methicillin-sensitive Staphylococcus aureus and group B strep. At this time, she will be transitioned to renally dosed Keflex and she can continue on this for a minimum of 4-6 weeks. Certainly, she can follow up with infectious diseases at the wound care center post-discharge from the hospital. 2. Influenza, on Tamiflu, to complete course as prescribed.
[2017-06-28] MEDS ORDERED: MAGNESIUM SULFATE 1GM / D5W 1 GM in PREMIXED IN D5W 100 ML IV ONE (19:30)
[2017-06-28] MEDS ORDERED: METOPROLOL TARTRATE 50 MG TAB PO ONE (21:00)
[2017-06-28] MEDS: CEPHALEXIN MONOHYDRATE 500 MG CAP PO SCH (21:27)
[2017-06-28] MEDS: MAGNESIUM OXIDE 400 MG TAB PO SCH (21:29)
[2017-06-29] MEDS: HEPARIN 25,000 UNIT/500ML D5W 500 ML IV PRN ×2 (00:54→06:53)
[2017-06-29 03:35] VITALS: BP 134/66; PULSE 66; TEMP 37.3; O2SAT 91
[2017-06-29 06:11] LABS: BASO % 0.4 %; BASO ABS # 0.02 K/uL (0-0.2); EOS % 0.9 %; EOS ABS # 0.05 K/uL (0-0.5); HEMATOCRIT 29.5 % (37-47); HEMOGLOBIN 9.8 g/dL (12.0-16.0); IG# 0.03 K/uL (0.00-0.02); LYMPH % 12.7 %; LYMPH ABS # 0.72 K/uL (1.2-3.4); MEAN CELL VOLUME 92.5 fL (80-100); MEAN CORPUSCULAR HEMOGLOBIN 30.7 pg (25-34); MEAN CORPUSCULAR HGB CONC 33.2 g/dl (32-36); MONO % 7.1 %; NEUT % 78.4 %; NEUT ABS # 4.44 K/uL (1.4-6.5); PLATELET COUNT 174 K/uL (130-400); RED CELL DISTRIBUTION WIDTH CV 13.4 % (11.5-14.5); WHITE BLOOD COUNT 5.66 K/uL (4.8-10.8)
[2017-06-29] MEDS: LEVOTHYROXINE 50 MCG TAB PO SCH (06:14)
[2017-06-29 06:41] LABS: CALCIUM 7.8 mg/dl (8.5-10.1); CREATININE 1.05 mg/dl (0.60-1.20)
[2017-06-29 06:50] LABS: PTT PATIENT 77.6 SECONDS (21.0-31.0)
[2017-06-29 07:46] LABS: HEMOGLOBIN A1C 10.2 % (4.5-5.6)
[2017-06-29 08:16] VITALS: BP 133/65; PULSE 68; TEMP 36.5; O2SAT 92
[2017-06-29] MEDS: ATORVASTATIN 40 MG TAB PO SCH (08:22)
[2017-06-29] MEDS: ASPIRIN 81 MG ECTAB PO SCH (08:22)
[2017-06-29] MEDS: MAGNESIUM OXIDE 400 MG TAB PO SCH (08:22)
[2017-06-29] MEDS: CEPHALEXIN MONOHYDRATE 500 MG CAP PO SCH ×2 (08:23→21:35)
[2017-06-29] MEDS: OSELTAMIVIR PHOSPHATE 75 MG CAP PO SCH ×2 (08:23→21:36)
[2017-06-29] MEDS: METOPROLOL SUCC 50MG EXT REL TAB PO SCH (08:23)
[2017-06-29] MEDS: LISINOPRIL 2.5 MG TAB PO SCH (08:24)
[2017-06-29] MEDS: INSULIN ASPART 100 UNITS/ML 3 ML PEN SC SCH ×4 (08:28→21:00)
[2017-06-29] MEDS: TRIAMCINOLONE ACET 0.1% OINT 15 GM TUBE TOP SCH ×2 (08:29→21:00)
[2017-06-29] MEDS ORDERED: METOPROLOL SUCC 25MG EXT REL TAB PO SCH (09:00)
--- NOTE | 2017-06-29 09:20 | Family Medicine Progress Note ---
Progress Note Date of Service Jun 29, 2017. Subjective Pt evaluation today including: conversation w/ patient, physical exam, chart review, lab review, review of studies, conversation w/ quality improvement consultant (Dr Holguin , Dr Stuart), review of inpatient medication list Patient feels back to her baseline. No chest pain, shortness of breath, palpitations, orthopnea, PND or leg swelling. All Other Systems: Reviewed and Negative Medications Current Inpatient Medications Medications (Trade) Dose Ordered Sig/Thelma Route Start Time Stop Time Status Last Admin Dose Admin Ioversol (Optiray 320) 111 ml UD PRN IV 06/27/17 18:45 07/01/17 18:44 Nitroglycerin (Nitrostat Tab) 0.4 mg Q5M PRN SL 06/27/17 22:15 07/27/17 22:14 Aspirin (Ecotrin Tab) 81 mg QAM PO 06/28/17 09:00 07/28/17 08:59 06/29/17 08:22 81 MG Ondansetron HCl (Zofran Tab) 4 mg Q4H PRN PO 06/27/17 22:15 07/27/17 22:14 Levothyroxine Sodium (Synthroid Tab) 50 mcg DAILYBB PO 06/28/17 06:00 07/28/17 05:59 06/29/17 06:14 50 MCG Triamcinolone Acetonide (Kenalog 0.1% Oint) 1 appln BID TOP 06/28/17 09:00 07/28/17 08:59 06/28/17 08:08 1 APPLN Insulin Aspart (novoLOG ASPART) SLIDING SCALE If C... ACHS SC 06/28/17 07:00 07/28/17 06:59 06/29/17 08:28 3 UNITS Glucose (Glucose 40% Gel) 15-30 GRAMS 15 GRAMS... UD PRN PO 06/27/17 22:15 07/27/17 22:14 Glucose (Glucose Chew Tab) 4-8 Tablets 4 Tabl... UD PRN PO 06/27/17 22:15 07/27/17 22:14 Dextrose (Dextrose 50% 50ML Syringe) 25-50ML OF 50% DW IV FOR... UD PRN IV 06/27/17 22:15 2/9/18 22:14 Glucagon (Glucagon Inj) 1 mg UD PRN SQ 06/27/17 22:15 07/27/17 22:14 Oseltamivir Phosphate (Tamiflu Cap) 75 mg BID PO 06/28/17 09:00 07/03/17 08:59 06/29/17 08:23 75 MG Heparin Sodium/ Dextrose 500 ml @ 16 mls/hr Q24H PRN IV 06/28/17 01:00 07/28/17 00:59 06/29/17 06:53 18 MLS/HR Atorvastatin Calcium (Lipitor Tab) 40 mg QAM PO 06/29/17 09:00 07/29/17 08:59 06/29/17 08:22 40 MG Cephalexin Monohydrate (Keflex Cap) 500 mg BID PO 06/28/17 21:00 08/09/17 20:59 06/29/17 08:23 500 MG Lisinopril (Zestril Tab) 2.5 mg QAM PO 06/29/17 09:00 07/29/17 08:59 06/29/17 08:24 2.5 MG Metoprolol Succinate (Toprol Xl Tab) 100 mg QAM PO 06/29/17 09:00 07/29/17 08:59 06/29/17 08:23 100 MG Magnesium Oxide (Mag-Ox Tab) 400 mg BID PO 06/28/17 21:00 07/28/17 20:59 06/29/17 08:22 400 MG Objective Vital Signs Date Time Temp Pulse Resp B/P (MAP) Pulse Ox O2 Delivery O2 Flow Rate FiO2 06/29/17 08:16 36.5 68 21 133/65 (87) 92 Room Air 06/29/17 04:00 Room Air 06/29/17 03:35 37.3 66 25 134/66 (88) 91 Room Air 06/29/17 00:00 Room Air 06/28/17 23:30 37.2 61 15 130/77 (94) 94 Room Air 06/28/17 20:00 Room Air 06/28/17 18:57 37.0 77 16 148/76 (100) 90 Room Air 06/28/17 16:00 Room Air 06/28/17 15:16 36.6 62 21 127/66 (86) 93 Room Air 06/28/17 12:00 Room Air 06/28/17 11:52 36.7 60 19 130/59 (82) 95 Room Air Physical Exam General Appearance: no apparent distress, + thin Eyes: normal inspection (pupils equal), EOMI ENT: pharynx normal Neck: supple, no JVD, trachea midline Respiratory/Chest: lungs clear, normal breath sounds, no respiratory distress, no accessory muscle use Cardiovascular: regular rate, rhythm, no edema, no murmur Abdomen: normal bowel sounds, non tender, soft Extremities: + pertinent finding (cellulitis around left ankle) Neurologic/Psychiatric: alert, oriented x 3 Skin: + pertinent finding (cellultis) Laboratory Results 06/29/17 05:49 Red Blood Count 3.19, Mean Corpuscular Volume 92.5, Mean Corpuscular Hemoglobin 30.7, Mean Corpuscular Hemoglobin Concent 33.2, Mean Platelet Volume 10.0, Neutrophils (%) (Auto) 78.4, Lymphocytes (%) (Auto) 12.7, Monocytes (%) (Auto) 7.1, Eosinophils (%) (Auto) 0.9, Basophils (%) (Auto) 0.4, Neutrophils # (Auto) 4.44, Lymphocytes # (Auto) 0.72, Monocytes # (Auto) 0.40, Eosinophils # (Auto) 0.05, Basophils # (Auto) 0.02 06/29/17 05:49 Test 06/28/17 14:00 06/29/17 05:49 06/29/17 06:48 06/29/17 09:18 Troponin I 4.260 ng/ml (0-0.045) White Blood Count 5.66 K/uL (4.8-10.8) Red Blood Count 3.19 M/uL (4.2-5.4) Hemoglobin 9.8 g/dL (12.0-16.0) Hematocrit 29.5 % (37-47) Mean Corpuscular Volume 92.5 fL (80-100) Mean Corpuscular Hemoglobin 30.7 pg (25-34) Mean Corpuscular Hemoglobin Concent 33.2 g/dl (32-36) Platelet Count 174 K/uL (130-400) Mean Platelet Volume 10.0 fL (7.4-10.4) Neutrophils (%) (Auto) 78.4 % Lymphocytes (%) (Auto) 12.7 % Monocytes (%) (Auto) 7.1 % Eosinophils (%) (Auto) 0.9 % Basophils (%) (Auto) 0.4 % Neutrophils # (Auto) 4.44 K/uL (1.4-6.5) Lymphocytes # (Auto) 0.72 K/uL (1.2-3.4) Monocytes # (Auto) 0.40 K/uL (0.11-0.59) Eosinophils # (Auto) 0.05 K/uL (0-0.5) Basophils # (Auto) 0.02 K/uL (0-0.2) RDW Standard Deviation 45.0 fL (36.4-46.3) RDW Coefficient of Variation 13.4 % (11.5-14.5) Immature Granulocyte % (Auto) 0.5 % Immature Granulocyte # (Auto) 0.03 K/uL (0.00-0.02) Activated Partial Thromboplast Time 77.6 SECONDS (21.0-31.0) Partial Thromboplastin Ratio 3.0 Anion Gap 9.0 mmol/L (3-11) Est Creatinine Clear Calc Drug Dose 32.0 ml/min Estimated GFR () 54.9 Estimated GFR (Non- 47.4 BUN/Creatinine Ratio 19.0 (10-20) Estimated Average Glucose 246 mg/dl Hemoglobin A1c 10.2 % (4.5-5.6) Calcium Level 7.8 mg/dl (8.5-10.1) Bedside Glucose 164 mg/dl (70-90) Assessment and Plan 86 year old female with a past medical history of hypertension, diabetes, hypothyroidism, and uterine prolapse that presents with vomiting, weakness and fatigue NSTEMI - given degree of troponin elevation I suspect this is due to CAD rather than demand however echo is pending at this stage. - continue on telemetry overnight, can step down or d/c tomorrow - Continue metoprolol succinate Tartrate 50mg PO BID - Aspirin, metoprolol, lisinopril, atorvastatin - Her anemia is chronic and will start clopidogrel - Heparin drip finish at 4am 06/30/16 - ECHO - LVEF 40-45%, Inferior akinesis, severe inferolateral hypokinesis, Moderate mitral regurgitation, Borderline pulmonary hypertension, Est PASP 35- 40 mmHg - Appreciate cardiology management Ischemic cardiomyopathy - Continue BB and ACEi Acute hypoxic respiratory failure - now resolved - Supplemental Oxygen as needed to maintain SpO2 > 94% as in setting of acute [place] Influenza - positive 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 Type 2 diabetes - HbA1C 10.2 - Blood glucose AC and HS - Sliding scale insulin - start daily Lantus 10 units - Holding home Metformin Hypothyroidism - Continue home Synthroid VTE Prophylaxis - Continue heparin IV drip - plan to stop at 4am 06/30/17 Code Status - Full Resuscitation Disposition - continue on telemetry. Discontinue browning cath. PT/OT. Aim step down care +/- home tomorrow (lives with her younger sister). Resident Tracking Resident Involvement: Resident Care Provided Care Provided: Adult Hospital Medicine Reviewed: Pt Seen/Exam by Me History feeling very upset because of being stuck to so many tubes and not being able to get out of bed almost angry and tearful Constitutional: denies: fever Respiratory: negative: short of breath Cardiovascular: denies chest pain General Appearance: no apparent distress Respiratory: no respiratory distress, decreased breath sounds Cardiovascular: regular rate, rhythm Neurologic/Psychiatric: alert, oriented x 3 Skin Characteristics: warm/dry Assessment/Plan Resident Physician Supervision Note: I independently interviewed and examined the patient and verified the chiang history and physical, reviewed labs and image studies, discussed the case with the resident Dr. Lord and agree with the findings and care plan. comforting reassurance provided
[2017-06-29] MEDS ORDERED: INSULIN GLARGINE SOLOSTAR 100 UNITS/ML 3 ML PEN SC ONE (09:30)
--- NOTE | 2017-06-29 09:42 | CARDIOLOGY PROGRESS NOTE ---
DATE: 06/29/2017 DATE: 06/29/2017 TIME: 9:18 a.m. SUBJECTIVE: Ms. Dyson denies chest pain, shortness of breath, syncope, near syncope, palpitations. She states that overall she feels well. OBJECTIVE: VITAL SIGNS: Temperature 36.5 degrees, heart rate 68 beats per minute, respiration rate 20, blood pressure 133/65 mmHg, oxygen saturation 92% on room air. I's and O's negative 404 mL yesterday, weight is 58.8 kg. GENERAL: No acute distress. She is alert. NECK: No JVD. CARDIAC EXAMINATION: No ventricular heave. Regular, normal S1, S2. There were no audible murmurs, rubs or gallops. LUNGS: Clear to auscultation bilaterally without wheezes, rales or rhonchi. ABDOMEN: Soft, nontender, nondistended. Normoactive bowel sounds. EXTREMITIES: Trace left lower extremity edema. No cyanosis. PSYCHIATRIC: Affect appears appropriate. MEDICATIONS: Include aspirin 81 mg daily, Lipitor 40 mg daily, Keflex 500 mg p.o. b.i.d., heparin drip per protocol, lisinopril 2.5 mg daily, magnesium oxide 400 mg p.o. b.i.d., metoprolol succinate 100 mg daily, Tamiflu 75 mg p.o. b.i.d. Telemetry personally reviewed. One episode of SVT approximately 16 seconds in the past 24 hours. She is asymptomatic. LABORATORY DATA: White blood cell count is 5.66, hemoglobin 9.8, platelets 174. Sodium 135, potassium 4, BUN 20, creatinine 1.05. Hemoglobin A1c 10.2. PTT 77.6. Echocardiogram official report 06/28/2017, mildly reduced LV systolic function. EF 40-45%. Akinesis of the inferior wall. Severe inferolateral hypokinesis, severe biatrial dilation. Moderate MR. Sclerotic aortic valve. RVSP 35-40. ASSESSMENT AND PLAN: 1. Non-ST elevation myocardial infarction: She did not present as an acute coronary syndrome. She presented with flu-like symptoms, although she has improved significantly with her flu-like symptoms. Her and her family wished for conservative management. Continue aspirin 81 mg daily. Continue high intensity statin therapy as well as beta tamara therapy. Could also consider Plavix 75 mg daily for 1 year if no contraindications. She is anemic and therefore was not started at this time, but please consider if there is no concern for bleeding. Consider cardiac rehabilitation on discharge if she is interested. 2. Cardiomyopathy: Likely ischemic in origin. She likely has underlying coronary artery disease given her risk factors and advanced age. Continue metoprolol succinate, which was started yesterday. FLACO inhibitor is being initiated today. This can be titrated as appropriate. 3. Hypertension: Blood pressure improved. Continue medications as noted. 4. Influenza: As per primary service and infectious disease. 5. Disposition: Cardiology will sign off at this time. We will be happy to follow with her in the outpatient setting after discharge. The patient's care has been discussed with Dr. Lord of the primary hospitalist service.
--- NOTE | 2017-06-29 09:55 | Progress Note ---
Subjective Date of Service: Jun 29, 2017. Subjective Pt evaluation today including: conversation w/ patient, physical exam, chart review, lab review pt feeling well. denies cp,sob, abd pain, no pain in foot. changed to keflex yesterday, continues on tamiflu. tolerating well. no complaints on my exam, all remaining ros reviewed and are negative. Problem List Medical Problems: (1) Congestive heart failure (CHF) Status: Acute (2) Influenza A Status: Acute (3) Influenza B Status: Acute (4) NSTEMI (non-ST elevated myocardial infarction) Status: Acute Objective Vital Signs Date Time Temp Pulse Resp B/P (MAP) Pulse Ox O2 Delivery O2 Flow Rate FiO2 06/29/17 08:16 36.5 68 21 133/65 (87) 92 Room Air 06/29/17 04:00 Room Air 06/29/17 03:35 37.3 66 25 134/66 (88) 91 Room Air 06/29/17 00:00 Room Air 06/28/17 23:30 37.2 61 15 130/77 (94) 94 Room Air 06/28/17 20:00 Room Air 06/28/17 18:57 37.0 77 16 148/76 (100) 90 Room Air 06/28/17 16:00 Room Air 06/28/17 15:16 36.6 62 21 127/66 (86) 93 Room Air 06/28/17 12:00 Room Air 06/28/17 11:52 36.7 60 19 130/59 (82) 95 Room Air Physical Exam General Appearance: WD/WN, no apparent distress Eyes: normal inspection, EOMI Neck: supple Respiratory/Chest: lungs clear, normal breath sounds, no respiratory distress Cardiovascular: regular rate, rhythm, no edema Abdomen: non tender, soft Extremities: non-tender, no pedal edema Neurologic/Psychiatric: alert, oriented x 3 Skin: normal color Laboratory Results Last 24 Hours Test 06/28/17 11:31 06/28/17 14:00 06/28/17 16:12 06/28/17 20:29 Bedside Glucose 175 mg/dl 135 mg/dl 204 mg/dl Sodium Level 135 mmol/L Potassium Level 4.3 mmol/L Chloride Level 102 mmol/L Carbon Dioxide Level 28 mmol/L Anion Gap 5.0 mmol/L Blood Urea Nitrogen 22 mg/dl Creatinine 1.23 mg/dl Est Creatinine Clear Calc Drug Dose 27.3 ml/min Estimated GFR () 45.4 Estimated GFR (Non- 39.1 BUN/Creatinine Ratio 17.6 Random Glucose 159 mg/dl Calcium Level 7.9 mg/dl Magnesium Level 1.7 mg/dl Troponin I 4.260 ng/ml Test 06/29/17 05:49 06/29/17 06:48 06/29/17 09:18 White Blood Count 5.66 K/uL Red Blood Count 3.19 M/uL Hemoglobin 9.8 g/dL Hematocrit 29.5 % Mean Corpuscular Volume 92.5 fL Mean Corpuscular Hemoglobin 30.7 pg Mean Corpuscular Hemoglobin Concent 33.2 g/dl Platelet Count 174 K/uL Mean Platelet Volume 10.0 fL Neutrophils (%) (Auto) 78.4 % Lymphocytes (%) (Auto) 12.7 % Monocytes (%) (Auto) 7.1 % Eosinophils (%) (Auto) 0.9 % Basophils (%) (Auto) 0.4 % Neutrophils # (Auto) 4.44 K/uL Lymphocytes # (Auto) 0.72 K/uL Monocytes # (Auto) 0.40 K/uL Eosinophils # (Auto) 0.05 K/uL Basophils # (Auto) 0.02 K/uL RDW Standard Deviation 45.0 fL RDW Coefficient of Variation 13.4 % Immature Granulocyte % (Auto) 0.5 % Immature Granulocyte # (Auto) 0.03 K/uL Activated Partial Thromboplast Time 77.6 SECONDS Partial Thromboplastin Ratio 3.0 Sodium Level 135 mmol/L Potassium Level 4.0 mmol/L Chloride Level 100 mmol/L Carbon Dioxide Level 26 mmol/L Anion Gap 9.0 mmol/L Blood Urea Nitrogen 20 mg/dl Creatinine 1.05 mg/dl Est Creatinine Clear Calc Drug Dose 32.0 ml/min Estimated GFR () 54.9 Estimated GFR (Non- 47.4 BUN/Creatinine Ratio 19.0 Random Glucose 164 mg/dl Estimated Average Glucose 246 mg/dl Hemoglobin A1c 10.2 % Calcium Level 7.8 mg/dl Bedside Glucose 164 mg/dl Assessment and Plan (1) Osteomyelitis Assessment & Plan: continue keflex, will need 4-6 weeks. will plan to follow as outpt, if pt to go to wound center post d/c, can follow there. no new recs. (2) Influenza A (3) Influenza B
[2017-06-29 11:42] VITALS: BMI 22.1
[2017-06-29] MEDS: ONDANSETRON 4 MG TAB PO PRN (12:00)
[2017-06-29 12:43] VITALS: BP 141/77; PULSE 60; TEMP 36.7; O2SAT 97
[2017-06-29 14:34] LABS: PTT PATIENT 69.7 SECONDS (21.0-31.0)
[2017-06-29 15:20] VITALS: BP 107/54; PULSE 55; TEMP 36.4; O2SAT 96
[2017-06-29 18:55] VITALS: BP 107/52; PULSE 54; TEMP 36.8; O2SAT 95
[2017-06-30] VITALS (7 sets, daily range): BP systolic 105–150; BP diastolic 52–71; PULSE 55–61; TEMP 36.2–36.7; O2SAT 90–98
[2017-06-30] MEDS: HEPARIN 25,000 UNIT/500ML D5W 500 ML IV PRN (02:36)
[2017-06-30] MEDS: LEVOTHYROXINE 50 MCG TAB PO SCH (05:48)
[2017-06-30 07:07] LABS: BASO % 0.7 %; BASO ABS # 0.03 K/uL (0-0.2); EOS % 5.1 %; EOS ABS # 0.23 K/uL (0-0.5); HEMATOCRIT 28.3 % (37-47); HEMOGLOBIN 9.6 g/dL (12.0-16.0); IG# 0.03 K/uL (0.00-0.02); MEAN CELL VOLUME 92.5 fL (80-100); MEAN CORPUSCULAR HEMOGLOBIN 31.4 pg (25-34); MEAN CORPUSCULAR HGB CONC 33.9 g/dl (32-36); MEAN PLATELET VOLUME 10.1 fL (7.4-10.4); MONO ABS # 0.54 K/uL (0.11-0.59); NEUT % 61.5 %; NEUT ABS # 2.78 K/uL (1.4-6.5); PLATELET COUNT 173 K/uL (130-400); RED CELL DISTRIBUTION WIDTH CV 13.2 % (11.5-14.5); RED CELL DISTRIBUTION WIDTH SD 44.7 fL (36.4-46.3); WHITE BLOOD COUNT 4.51 K/uL (4.8-10.8)
[2017-06-30] MEDS: ASPIRIN 81 MG ECTAB PO SCH (07:25)
[2017-06-30] MEDS: ATORVASTATIN 40 MG TAB PO SCH (07:26)
[2017-06-30] MEDS: OSELTAMIVIR PHOSPHATE 75 MG CAP PO SCH ×2 (07:26→21:07)
[2017-06-30] MEDS: MAGNESIUM OXIDE 400 MG TAB PO SCH (07:26)
[2017-06-30] MEDS: CEPHALEXIN MONOHYDRATE 500 MG CAP PO SCH ×2 (07:26→21:06)
[2017-06-30] MEDS: CLOPIDOGREL BISULFATE 75 MG TAB PO SCH (07:26)
[2017-06-30] MEDS: LISINOPRIL 2.5 MG TAB PO SCH (07:27)
[2017-06-30] MEDS: METOPROLOL SUCC 50MG EXT REL TAB PO SCH (07:27)
[2017-06-30 07:29] LABS: PTT PATIENT 99.7 SECONDS (21.0-31.0)
[2017-06-30 07:33] LABS: CALCIUM 7.6 mg/dl (8.5-10.1); CREATININE 1.14 mg/dl (0.60-1.20); POTASSIUM 3.6 mmol/L (3.5-5.1)
[2017-06-30] MEDS: INSULIN ASPART 100 UNITS/ML 3 ML PEN SC SCH ×4 (08:00→21:13)
[2017-06-30] MEDS: BOOST GLUCOSE CONTROL PO SCH (09:00)
[2017-06-30] MEDS: TRIAMCINOLONE ACET 0.1% OINT 15 GM TUBE TOP SCH ×2 (09:00→21:06)
--- NOTE | 2017-06-30 11:08 | Family Medicine Progress Note ---
Progress Note Date of Service Jun 30, 2017. Subjective Pt evaluation today including: conversation w/ patient, physical exam, chart review, lab review Voiding: no voiding problems, no incontinence Doing well this morning Denies complaints of chest pain, shortness of breath, papitations, cough or wheezing Has been working with OT/PT; amenable to inpatient rehabilitation No acute events overnight; no nursing concerns Constitutional: No fever, No chills, No sweats Eyes: No worsening of vision, No eye pain, No redness ENT: No hearing loss, No nasal symptoms, No sore throat Respiratory: No cough, No wheezing, No shortness of breath Cardiovascular: No chest pain, No orthopnea, No palpitations Abdomen: No pain, No nausea, No vomiting, No diarrhea, No constipation Musculoskeletal: No joint pain, No muscle pain Female : No dysuria, No urinary frequency, No hematuria Neurologic: No weakness, No numbness/tingling, No vertigo Psychiatric: No depression symptoms, No anxiety, No insomnia Heme: No abnormal bleeding/bruising, No clotting problems, No swollen lymph nodes Endo: No fatigue Skin: No rash, No new/changing skin lesions, No color change Medications Current Inpatient Medications Medications (Trade) Dose Ordered Sig/Thelma Route Start Time Stop Time Status Last Admin Dose Admin Ioversol (Optiray 320) 111 ml UD PRN IV 06/27/17 18:45 07/01/17 18:44 Nitroglycerin (Nitrostat Tab) 0.4 mg Q5M PRN SL 06/27/17 22:15 07/27/17 22:14 Aspirin (Ecotrin Tab) 81 mg QAM PO 06/28/17 09:00 07/28/17 08:59 06/30/17 07:25 81 MG Ondansetron HCl (Zofran Tab) 4 mg Q4H PRN PO 06/27/17 22:15 07/27/17 22:14 06/29/17 12:00 4 MG Levothyroxine Sodium (Synthroid Tab) 50 mcg DAILYBB PO 06/28/17 06:00 07/28/17 05:59 06/30/17 05:48 50 MCG Triamcinolone Acetonide (Kenalog 0.1% Oint) 1 appln BID TOP 06/28/17 09:00 07/28/17 08:59 06/28/17 08:08 1 APPLN Insulin Aspart (novoLOG ASPART) SLIDING SCALE If C... ACHS SC 06/28/17 07:00 07/28/17 06:59 06/29/17 13:10 4 UNITS Glucose (Glucose 40% Gel) 15-30 GRAMS 15 GRAMS... UD PRN PO 06/27/17 22:15 07/27/17 22:14 Glucose (Glucose Chew Tab) 4-8 Tablets 4 Tabl... UD PRN PO 06/27/17 22:15 07/27/17 22:14 Dextrose (Dextrose 50% 50ML Syringe) 25-50ML OF 50% DW IV FOR... UD PRN IV 06/27/17 22:15 07/27/17 22:14 Glucagon (Glucagon Inj) 1 mg UD PRN SQ 06/27/17 22:15 07/27/17 22:14 Oseltamivir Phosphate (Tamiflu Cap) 75 mg BID PO 06/28/17 09:00 07/03/17 08:59 06/30/17 07:26 75 MG Atorvastatin Calcium (Lipitor Tab) 40 mg QAM PO 06/29/17 09:00 07/29/17 08:59 06/30/17 07:26 40 MG Cephalexin Monohydrate (Keflex Cap) 500 mg BID PO 06/28/17 21:00 08/09/17 20:59 06/30/17 07:26 500 MG Lisinopril (Zestril Tab) 2.5 mg QAM PO 06/29/17 09:00 07/29/17 08:59 06/30/17 07:27 2.5 MG Metoprolol Succinate (Toprol Xl Tab) 100 mg QAM PO 06/29/17 09:00 07/29/17 08:59 06/29/17 08:23 100 MG Magnesium Oxide (Mag-Ox Tab) 400 mg QAM PO 06/30/17 09:00 07/28/17 20:59 06/30/17 07:26 400 MG Enteral Nutritional Formula (Boost Glucose Control) 1 can DAILY PO 06/30/17 09:00 07/30/17 08:59 Clopidogrel Bisulfate (plAVix TAB) 75 mg QAM PO 06/30/17 09:00 07/30/17 08:59 06/30/17 07:26 75 MG Objective Vital Signs Date Time Temp Pulse Resp B/P (MAP) Pulse Ox O2 Delivery O2 Flow Rate FiO2 06/30/17 10:45 36.2 61 20 142/65 (90) 91 Room Air 06/30/17 05:28 36.7 55 16 105/52 (69) 90 Room Air 06/30/17 04:00 Room Air 06/30/17 00:02 36.5 56 18 116/52 (73) 96 Room Air 06/30/17 00:00 Room Air 06/29/17 20:05 Room Air 06/29/17 18:55 36.8 54 24 107/52 (70) 95 Room Air 06/29/17 16:05 Room Air 06/29/17 15:20 36.4 55 18 107/54 (71) 96 Room Air 06/29/17 12:43 36.7 60 25 141/77 (98) 97 Room Air 06/29/17 12:05 Room Air Physical Exam General Appearance: WD/WN, no apparent distress Eyes: normal inspection, EOMI ENT: hearing grossly normal, pharynx normal Neck: supple, no adenopathy, no JVD Respiratory/Chest: chest non-tender, lungs clear, no respiratory distress Cardiovascular: regular rate, rhythm, no gallop, no murmur Abdomen: normal bowel sounds, non tender, soft Extremities: non-tender, no pedal edema Neurologic/Psychiatric: alert, normal mood/affect, oriented x 3 Skin: normal color, warm/dry, no rash, + pertinent finding (Left foot appears stable; no worsening erythema to foot; no obvious purulence) Lymphatic: no adenopathy Laboratory Results Last 24 Hours Test 06/29/17 11:44 06/29/17 12:58 06/29/17 16:30 06/29/17 20:06 Bedside Glucose 196 mg/dl 100 mg/dl 127 mg/dl Activated Partial Thromboplast Time 69.7 SECONDS Partial Thromboplastin Ratio 2.7 Test 06/30/17 06:37 06/30/17 06:47 White Blood Count 4.51 K/uL Red Blood Count 3.06 M/uL Hemoglobin 9.6 g/dL Hematocrit 28.3 % Mean Corpuscular Volume 92.5 fL Mean Corpuscular Hemoglobin 31.4 pg Mean Corpuscular Hemoglobin Concent 33.9 g/dl Platelet Count 173 K/uL Mean Platelet Volume 10.1 fL Neutrophils (%) (Auto) 61.5 % Lymphocytes (%) (Auto) 20.0 % Monocytes (%) (Auto) 12.0 % Eosinophils (%) (Auto) 5.1 % Basophils (%) (Auto) 0.7 % Neutrophils # (Auto) 2.78 K/uL Lymphocytes # (Auto) 0.90 K/uL Monocytes # (Auto) 0.54 K/uL Eosinophils # (Auto) 0.23 K/uL Basophils # (Auto) 0.03 K/uL RDW Standard Deviation 44.7 fL RDW Coefficient of Variation 13.2 % Immature Granulocyte % (Auto) 0.7 % Immature Granulocyte # (Auto) 0.03 K/uL Activated Partial Thromboplast Time 99.7 SECONDS Partial Thromboplastin Ratio 3.8 Sodium Level 135 mmol/L Potassium Level 3.6 mmol/L Chloride Level 102 mmol/L Carbon Dioxide Level 30 mmol/L Anion Gap 3.0 mmol/L Blood Urea Nitrogen 20 mg/dl Creatinine 1.14 mg/dl Est Creatinine Clear Calc Drug Dose 29.5 ml/min Estimated GFR () 49.7 Estimated GFR (Non- 42.9 BUN/Creatinine Ratio 17.6 Random Glucose 80 mg/dl Calcium Level 7.6 mg/dl Magnesium Level 2.1 mg/dl Bedside Glucose 94 mg/dl Assessment and Plan (1) NSTEMI (non-ST elevated myocardial infarction) Assessment & Plan: - No chest pain overnight - Heparin drip discontinued this morning - Patient has now started Plavix - On appropriate secondary therapy: ASA, Plavix, Atorvastatin, Plavix, Lisinopril - Cardiology recommendations appreciated Will discuss cardiac rehab with patient (after discharge from acute rehab facility) (2) Influenza Assessment & Plan: - On Tamiflu; last day of 5 day course today - No new respiratory symptoms; respiratory status stable on examination (3) Hypothyroidism Assessment & Plan: - Continue Synthroid (4) Ischemic cardiomyopathy Assessment & Plan: - Continue Metoprolol and Lisinopril - Unfortunately, she has had a substantial drop in baseline BP; therefore ACEi or BB cannot be uptitrated at this time - HR in 50-60s also precluding uptitration of beta-tamara (5) Diabetes mellitus Status: Chronic Onset: 06/16/2012 Assessment & Plan: - Continue SSI - BSG controlled over 24 hours at 100 - 190 (6) Benign hypertension Status: Chronic Onset: 06/16/2012 Assessment & Plan: - Lisinopril and Metoprolol as above (7) Osteomyelitis Assessment & Plan: - Continue Keflex 4-6 weeks - Will arrange for outpatient wound care clinic combined with ID follow-up DVT Prophylaxis - SCD Knee, PANFILO Hose - Lovenox 40 mg s.c. daily Code Status - Level I Full Code Disposition - Can transfer to med/surg - OT and PT evaluations Continued [facility] stay due to: ambulation difficulties Discharge planning: rehab hospital Reviewed: Pt Seen/Exam by Me History sitting in chair. no concerns Constitutional: denies: fever Respiratory: negative: short of breath Cardiovascular: denies chest pain General Appearance: no apparent distress Respiratory: lungs clear, no respiratory distress Cardiovascular: regular rate, rhythm Neurologic/Psychiatric: alert Skin Characteristics: warm/dry Assessment/Plan Resident Physician Supervision Note: I independently interviewed and examined the patient and verified the chiang history and physical, reviewed labs and image studies, discussed the case with the resident Dr. Bolton and agree with the findings and care plan.
[2017-06-30] MEDS: ONDANSETRON 4 MG TAB PO PRN (21:05)
[2017-07-01 05:14] LABS: HEMATOCRIT 31.3 % (37-47); HEMOGLOBIN 10.5 g/dL (12.0-16.0); MEAN CELL VOLUME 92.6 fL (80-100); MEAN CORPUSCULAR HEMOGLOBIN 31.1 pg (25-34); MEAN CORPUSCULAR HGB CONC 33.5 g/dl (32-36); MEAN PLATELET VOLUME 9.8 fL (7.4-10.4); PLATELET COUNT 190 K/uL (130-400); RED CELL DISTRIBUTION WIDTH CV 13.1 % (11.5-14.5); RED CELL DISTRIBUTION WIDTH SD 44.4 fL (36.4-46.3); WHITE BLOOD COUNT 4.72 K/uL (4.8-10.8)
[2017-07-01] MEDS: LEVOTHYROXINE 50 MCG TAB PO SCH (05:42)
[2017-07-01 05:51] LABS: CALCIUM 8.2 mg/dl (8.5-10.1); CREATININE 1.03 mg/dl (0.60-1.20); POTASSIUM 4.1 mmol/L (3.5-5.1)
[2017-07-01 07:17] VITALS: BP 164/73; PULSE 60; TEMP 36.6; O2SAT 99
[2017-07-01] MEDS: METOPROLOL SUCC 50MG EXT REL TAB PO SCH (08:20)
[2017-07-01] MEDS: ASPIRIN 81 MG ECTAB PO SCH (08:21)
[2017-07-01] MEDS: CLOPIDOGREL BISULFATE 75 MG TAB PO SCH (08:21)
[2017-07-01] MEDS: ATORVASTATIN 40 MG TAB PO SCH (08:21)
[2017-07-01] MEDS: CEPHALEXIN MONOHYDRATE 500 MG CAP PO SCH ×2 (08:22→20:00)
[2017-07-01] MEDS: LISINOPRIL 2.5 MG TAB PO SCH (08:22)
[2017-07-01] MEDS: MAGNESIUM OXIDE 400 MG TAB PO SCH (08:23)
[2017-07-01] MEDS: TRIAMCINOLONE ACET 0.1% OINT 15 GM TUBE TOP SCH ×2 (08:24→20:00)
[2017-07-01] MEDS: ENOXAPARIN 30 MG/0.3 ML SYR SQ SCH (08:24)
[2017-07-01] MEDS: INSULIN ASPART 100 UNITS/ML 3 ML PEN SC SCH ×4 (08:30→20:05)
[2017-07-01] MEDS: BOOST GLUCOSE CONTROL PO SCH (08:43)
[2017-07-01] MEDS: OSELTAMIVIR PHOSPHATE 75 MG CAP PO SCH ×2 (08:43→19:59)
--- NOTE | 2017-07-01 12:49 | Family Medicine Progress Note ---
Progress Note Date of Service Jul 01, 2017. Subjective Pt evaluation today including: conversation w/ patient, physical exam, chart review, lab review Pain: None PO Intake: Good Voiding: no voiding problems, no incontinence Doing well tonight No acute issues No nursing concerns Vitals are stable; patient is breathing comfortably. Constitutional: No fever, No chills, No sweats, No weight loss Eyes: No worsening of vision, No eye pain, No redness ENT: No hearing loss, No nasal symptoms, No sore throat Respiratory: No cough, No wheezing, No shortness of breath Cardiovascular: No chest pain, No orthopnea, No palpitations Abdomen: No pain, No nausea, No vomiting, No diarrhea, No constipation Musculoskeletal: No joint pain, No muscle pain Female : No dysuria, No urinary frequency, No hematuria Neurologic: No weakness, No numbness/tingling, No vertigo Psychiatric: No depression symptoms, No anxiety Heme: No abnormal bleeding/bruising, No clotting problems, No swollen lymph nodes Skin: No rash, No new/changing skin lesions, No color change Medications Current Inpatient Medications Medications (Trade) Dose Ordered Sig/Thelma Route Start Time Stop Time Status Last Admin Dose Admin Ioversol (Optiray 320) 111 ml UD PRN IV 06/27/17 18:45 07/01/17 18:44 Nitroglycerin (Nitrostat Tab) 0.4 mg Q5M PRN SL 06/27/17 22:15 07/27/17 22:14 Aspirin (Ecotrin Tab) 81 mg QAM PO 06/28/17 09:00 07/28/17 08:59 07/01/17 08:21 81 MG Ondansetron HCl (Zofran Tab) 4 mg Q4H PRN PO 06/27/17 22:15 07/27/17 22:14 06/30/17 21:05 4 MG Levothyroxine Sodium (Synthroid Tab) 50 mcg DAILYBB PO 06/28/17 06:00 07/28/17 05:59 07/01/17 05:42 50 MCG Triamcinolone Acetonide (Kenalog 0.1% Oint) 1 appln BID TOP 06/28/17 09:00 07/28/17 08:59 07/01/17 08:24 1 APPLN Insulin Aspart (novoLOG ASPART) SLIDING SCALE If C... ACHS SC 06/28/17 07:00 07/28/17 06:59 07/01/17 08:30 1 UNITS Glucose (Glucose 40% Gel) 15-30 GRAMS 15 GRAMS... UD PRN PO 06/27/17 22:15 07/27/17 22:14 Glucose (Glucose Chew Tab) 4-8 Tablets 4 Tabl... UD PRN PO 06/27/17 22:15 07/27/17 22:14 Dextrose (Dextrose 50% 50ML Syringe) 25-50ML OF 50% DW IV FOR... UD PRN IV 06/27/17 22:15 07/27/17 22:14 Glucagon (Glucagon Inj) 1 mg UD PRN SQ 06/27/17 22:15 07/27/17 22:14 Oseltamivir Phosphate (Tamiflu Cap) 75 mg BID PO 06/28/17 09:00 07/03/17 08:59 07/01/17 08:43 75 MG Atorvastatin Calcium (Lipitor Tab) 40 mg QAM PO 06/29/17 09:00 07/29/17 08:59 07/01/17 08:21 40 MG Cephalexin Monohydrate (Keflex Cap) 500 mg BID PO 06/28/17 21:00 08/09/17 20:59 07/01/17 08:22 500 MG Lisinopril (Zestril Tab) 2.5 mg QAM PO 06/29/17 09:00 07/29/17 08:59 07/01/17 08:22 2.5 MG Metoprolol Succinate (Toprol Xl Tab) 100 mg QAM PO 06/29/17 09:00 07/29/17 08:59 07/01/17 08:20 100 MG Magnesium Oxide (Mag-Ox Tab) 400 mg QAM PO 06/30/17 09:00 07/28/17 20:59 07/01/17 08:23 400 MG Enteral Nutritional Formula (Boost Glucose Control) 1 can DAILY PO 06/30/17 09:00 07/30/17 08:59 07/01/17 08:43 1 CAN Clopidogrel Bisulfate (plAVix TAB) 75 mg QAM PO 06/30/17 09:00 07/30/17 08:59 07/01/17 08:21 75 MG Enoxaparin Sodium (Lovenox Inj) 30 mg QAM SQ 07/01/17 08:00 07/31/17 08:59 07/01/17 08:24 30 MG Objective Vital Signs Date Time Temp Pulse Resp B/P (MAP) Pulse Ox O2 Delivery O2 Flow Rate FiO2 07/01/17 07:17 36.6 60 20 164/73 (103) 99 Room Air 07/01/17 00:00 Room Air 06/30/17 23:24 36.6 56 17 150/64 (92) 96 Room Air 06/30/17 17:31 36.7 61 18 146/71 (96) 95 Room Air 06/30/17 17:00 Room Air 06/30/17 16:43 36.2 61 20 91 2.0 06/30/17 16:20 36.4 60 21 142/68 (92) 98 Room Air Physical Exam General Appearance: WD/WN, no apparent distress, + thin Eyes: normal inspection, EOMI ENT: hearing grossly normal, pharynx normal Neck: supple, no adenopathy, no JVD Respiratory/Chest: lungs clear, no respiratory distress Cardiovascular: regular rate, rhythm, no gallop, no murmur Abdomen: normal bowel sounds, non tender, soft Extremities: non-tender, no pedal edema Neurologic/Psychiatric: alert, normal mood/affect Skin: normal color, warm/dry, no rash Lymphatic: no adenopathy Laboratory Results Last 24 Hours Test 06/30/17 16:12 06/30/17 20:18 07/01/17 05:05 07/01/17 07:42 Bedside Glucose 146 mg/dl 143 mg/dl 119 mg/dl White Blood Count 4.72 K/uL Red Blood Count 3.38 M/uL Hemoglobin 10.5 g/dL Hematocrit 31.3 % Mean Corpuscular Volume 92.6 fL Mean Corpuscular Hemoglobin 31.1 pg Mean Corpuscular Hemoglobin Concent 33.5 g/dl RDW Standard Deviation 44.4 fL RDW Coefficient of Variation 13.1 % Platelet Count 190 K/uL Mean Platelet Volume 9.8 fL Sodium Level 138 mmol/L Potassium Level 4.1 mmol/L Chloride Level 104 mmol/L Carbon Dioxide Level 30 mmol/L Anion Gap 4.0 mmol/L Blood Urea Nitrogen 16 mg/dl Creatinine 1.03 mg/dl Est Creatinine Clear Calc Drug Dose 32.6 ml/min Estimated GFR () 56.2 Estimated GFR (Non- 48.5 BUN/Creatinine Ratio 15.2 Random Glucose 101 mg/dl Calcium Level 8.2 mg/dl Test 07/01/17 11:23 Bedside Glucose 225 mg/dl Assessment and Plan 86 year old female with influenza A and B, secondarily having NSTEMI due to systemic illness. In addition, the patient has a chronic osteomyelisis of the left 2nd toe and is on a prolonged course of Keflex. Acute issues are resolved. However, speaking with daughter, Ariela Dyson, who noted that there is no one to care for her at home. She lives independently, and younger sister only recently came to live with her apparently due to difficulty caring for self. Daughter expressed concern that living independently at home is not an option for her and that there is no one else that can live in the home and provide her with care at this time. As such, patient's daughter wants to explore long-term care. I have discussed this with case management who will assist in this matter. Influenza A and B - On Tamiflu; last dose of Tamiflu on 06/02 - No new respiratory symptoms; respiratory status stable on examination NSTEMI (non-ST elevated myocardial infarction) - No chest pain overnight - On appropriate secondary therapy: ASA, Plavix, Atorvastatin, Plavix, Lisinopril - Cardiology recommendations appreciated Will discuss cardiac rehab with patient Hypothyroidism - Continue Synthroid Ischemic cardiomyopathy - Continue Metoprolol and Lisinopril - BP elevated today at 140-150s systolic; previously 100-110 systolic; if remains this way; Lisinopril can be uptitrated tomorrow - HR in 50-60s also precluding uptitrated of beta-tamara Diabetes mellitus - Continue SSI Chronic Benign hypertension - Lisinopril and Metoprolol as above - If BP remain 140-150 systolic tomorrow, Lisinopril can be titrated upwards Osteomyelitis - Continue Keflex 4-6 weeks - Will arrange for outpatient wound care clinic combined with ID follow-up DVT Prophylaxis - SCD Knee - Lovenox 40 mg s.c. daily Code Status - Level I Full Code Disposition - Can transfer to med/surg - OT and PT evaluations - Case management to assist on seeing what options are available for long-term placement for the patient as home is not a suitable environment for her anymore according to daughter. Continued [facility] stay due to: home environment unsafe for pt Discharge planning: uncertain Reviewed: Pt Seen/Exam by Me Constitutional: denies: fever Respiratory: negative: short of breath Cardiovascular: denies chest pain General Appearance: no apparent distress Respiratory: lungs clear, no respiratory distress Cardiovascular: regular rate, rhythm Gastrointestinal: normal bowel sounds, non tender, soft Neurologic/Psychiatric: alert, oriented x 3 Assessment/Plan Resident Physician Supervision Note: I independently interviewed and examined the patient and verified the chiang history and physical, reviewed labs and image studies, discussed the case with the resident Dr. Bolton and agree with the findings and care plan.
[2017-07-01 14:47] VITALS: BP 166/72; PULSE 62; TEMP 36.6; O2SAT 98
[2017-07-01 23:41] VITALS: BP 146/71; PULSE 56; TEMP 36.4; O2SAT 99
[2017-07-02] MEDS: LEVOTHYROXINE 50 MCG TAB PO SCH (06:09)
--- NOTE | 2017-07-02 06:42 | DIAGNOSTIC IMAGING REPORT ---
L VENOUS DOPP LOWER EXT UNILAT HISTORY: 86 years-old Female asymmetric swelling, left leg acute left leg pain and swelling COMPARISON: None available TECHNIQUE: Multiple real-time sonographic images of the left lower extremity deep venous system were obtained assessing grayscale appearance, color and spectral flow FINDINGS: There is normal flow, compressibility, phasicity and augmentation of the left lower extremity deep venous structures. The patient was unable to tolerate compression of the distal portion of the superficial femoral vein. IMPRESSION: No sonographic evidence of deep venous thrombosis. The above report was generated using voice recognition software. It may contain grammatical, syntax or spelling errors. Electronically signed by: Aldo Mukherjee M.D. 07/02/2017 6:41 AM Dictated Date/Time: 07/02/2017 6:40 AM
[2017-07-02 07:23] VITALS: BP 153/69; PULSE 57; TEMP 36.6; O2SAT 97
[2017-07-02] MEDS: ASPIRIN 81 MG ECTAB PO SCH (08:28)
[2017-07-02] MEDS: CLOPIDOGREL BISULFATE 75 MG TAB PO SCH (08:28)
[2017-07-02] MEDS: TRIAMCINOLONE ACET 0.1% OINT 15 GM TUBE TOP SCH ×2 (08:28→20:41)
[2017-07-02] MEDS: METOPROLOL SUCC 50MG EXT REL TAB PO SCH (08:28)
[2017-07-02] MEDS: ATORVASTATIN 40 MG TAB PO SCH (08:29)
[2017-07-02] MEDS: OSELTAMIVIR PHOSPHATE 75 MG CAP PO SCH ×2 (08:29→20:39)
[2017-07-02] MEDS: CEPHALEXIN MONOHYDRATE 500 MG CAP PO SCH ×2 (08:29→20:40)
[2017-07-02] MEDS: MAGNESIUM OXIDE 400 MG TAB PO SCH (08:29)
[2017-07-02] MEDS: ENOXAPARIN 30 MG/0.3 ML SYR SQ SCH (08:29)
[2017-07-02] MEDS: LISINOPRIL 2.5 MG TAB PO SCH (08:29)
--- NOTE | 2017-07-02 08:35 | Family Medicine Progress Note ---
Progress Note Date of Service Jul 02, 2017. Subjective Pt evaluation today including: conversation w/ patient, physical exam, chart review, lab review, review of studies, conversation w/ service delivery management consultant, review of inpatient medication list Patient well this morning, denies acute overnight events. She has no complaints. She denies fevers/chills, headaches, CP, palpitations, dyspnea, abdominal pain, lower extremity swelling or rashes. She is tolerating diet without nausea or vomiting, ambulating to and from the washroom without exacerbating symptoms, and voiding and stooling appropriately. ROS is unremarkable except as noted above. Objective Vital Signs Date Time Temp Pulse Resp B/P (MAP) Pulse Ox O2 Delivery O2 Flow Rate FiO2 07/02/17 07:23 36.6 57 18 153/69 (97) 97 Room Air 07/02/17 00:25 Room Air 07/01/17 23:41 36.4 56 18 146/71 (96) 99 Room Air 07/01/17 19:50 Room Air 07/01/17 14:47 36.6 62 18 166/72 (103) 98 Room Air Physical Exam General Appearance: WD/WN, no apparent distress Eyes: normal inspection ENT: hearing grossly normal, pharynx normal Neck: supple Respiratory/Chest: lungs clear, normal breath sounds, no respiratory distress, no accessory muscle use Cardiovascular: regular rate, rhythm, no edema Abdomen: normal bowel sounds, non tender, soft Extremities: non-tender, normal inspection, no pedal edema Neurologic/Psychiatric: alert, normal mood/affect Skin: normal color, warm/dry, no rash, + pertinent finding (small wound on left foot toe) Laboratory Results Results Past 24 Hours Test 07/01/17 20:02 07/02/17 07:58 07/02/17 11:56 Range/Units Bedside Glucose 159 102 201 70-90 mg/dl Assessment and Plan 86 year old female with influenza A and B, secondarily having NSTEMI due to systemic illness. In addition, the patient has a chronic osteomyelitis of the left 2nd toe and is on a prolonged course of Keflex. Acute issues are resolved. Influenza A and B - On Tamiflu; last dose of Tamiflu on 06/02 - No new respiratory symptoms; respiratory status stable on examination NSTEMI (non-ST elevated myocardial infarction) - no chest pain overnight - Continue: ASA, clopidogrel, atorvastatin, lisinopril - Cardiology recommendations appreciated - Will discuss cardiac rehab with patient Hypothyroidism - Continue Synthroid Ischemic cardiomyopathy- BP remains elevated today at 140-150s systolic; HR in the 50-60s - Continue metoprolol (titration precluded by low HR) and lisinopril titrated up to 5mg Osteomyelitis - Continue Keflex 4-6 weeks - Will arrange for outpatient wound care clinic combined with ID follow-up Diabetes mellitus - Continue ISS - BGS ac/hs Chronic Benign hypertension - Lisinopril and Metoprolol as above VTE Ppx - SCD Knee - Lovenox 40 mg s.c. daily Code Status - Level I Full Code Disposition - Can transfer to med/surg - OT and PT evaluations - Case management to assist on seeing what options are available for long-term placement for the patient as home is not a suitable environment for her anymore according to daughter. Continued [facility] stay due to: home environment unsafe for pt Discharge planning: group home facility Resident Tracking Resident Involvement: Resident Care Provided Care Provided: Adult Hospital Medicine Reviewed: Pt Seen/Exam by Me History Pt is feeling improved overall. Pt is tolerating PO without issue, no further n/ v. She feels her weakness and fatigue are improving. Balance is still off, but better. No chest pain or SOB. Agree with HPI/ROS as noted by resident General Appearance: no apparent distress, thin Respiratory: normal breath sounds, no respiratory distress Cardiovascular: normal peripheral pulses, regular rate, rhythm Gastrointestinal: non tender, soft Extremities: non-tender, no pedal edema Neurologic/Psychiatric: alert, normal mood/affect Skin Characteristics: normal color, warm/dry Assessment/Plan Agree with plan as outlined above Flu A/B +, tamiflu Toe osteo, planning for keflex for 4-6 weeks total NSTEMI, statin, plavix, cardiac rehab Conservative management
[2017-07-02] MEDS: BOOST GLUCOSE CONTROL PO SCH (08:38)
[2017-07-02] MEDS: INSULIN ASPART 100 UNITS/ML 3 ML PEN SC SCH ×4 (08:38→20:43)
[2017-07-02] MEDS ORDERED: LISINOPRIL 2.5 MG TAB PO ONE (10:30)
--- NOTE | 2017-07-02 11:19 | Progress Note ---
Subjective Date of Service: Jul 02, 2017. Subjective Pt evaluation today including: conversation w/ patient, physical exam, chart review, lab review pt seen in followup, tolerating meds. no cough, sob, cp, n/v/d/. no f/c. states breathing much better. oob to chair reading paper on my exam. all remaining ros reviewed and are negative Problem List Medical Problems: (1) Congestive heart failure (CHF) Status: Acute (2) Influenza A Status: Acute (3) Influenza B Status: Acute (4) NSTEMI (non-ST elevated myocardial infarction) Status: Acute Objective Vital Signs Date Time Temp Pulse Resp B/P (MAP) Pulse Ox O2 Delivery O2 Flow Rate FiO2 07/02/17 08:00 Room Air 07/02/17 07:23 36.6 57 18 153/69 (97) 97 Room Air 07/02/17 00:25 Room Air 07/01/17 23:41 36.4 56 18 146/71 (96) 99 Room Air 07/01/17 19:50 Room Air 07/01/17 14:47 36.6 62 18 166/72 (103) 98 Room Air Physical Exam General Appearance: WD/WN, no apparent distress Eyes: normal inspection, EOMI Neck: supple Respiratory/Chest: lungs clear, normal breath sounds, no respiratory distress Cardiovascular: regular rate, rhythm, no edema Abdomen: non tender, soft Extremities: non-tender, no pedal edema Neurologic/Psychiatric: alert, oriented x 3 Skin: normal color Laboratory Results Last 24 Hours Test 07/01/17 11:23 07/01/17 16:31 07/01/17 20:02 07/02/17 07:58 Bedside Glucose 225 mg/dl 142 mg/dl 159 mg/dl 102 mg/dl Assessment and Plan (1) Osteomyelitis Assessment & Plan: continue keflex, will need 4-6 weeks. will plan to follow as outpt, if pt to go to wound center post d/c, can follow there. no new recs. (2) Influenza A (3) Influenza B Continued [facility] stay due to: home environment unsafe for pt Discharge planning: uncertain
[2017-07-02 15:25] VITALS: BP 136/67; PULSE 54; TEMP 36.8; O2SAT 97
[2017-07-02 23:59] VITALS: BP 160/82; PULSE 61; TEMP 36.3; O2SAT 98
[2017-07-03] MEDS: ACETAMINOPHEN 325 MG TAB PO PRN (04:12)
[2017-07-03 04:51] VITALS: BP 143/68
[2017-07-03] MEDS: LEVOTHYROXINE 50 MCG TAB PO SCH (06:09)
[2017-07-03 07:33] VITALS: BP 156/71; PULSE 53; TEMP 36.4; O2SAT 100
[2017-07-03] MEDS: METOPROLOL SUCC 50MG EXT REL TAB PO SCH (07:42)
[2017-07-03] MEDS: BOOST GLUCOSE CONTROL PO SCH (07:42)
[2017-07-03] MEDS: CLOPIDOGREL BISULFATE 75 MG TAB PO SCH (07:42)
[2017-07-03] MEDS: ATORVASTATIN 40 MG TAB PO SCH (07:42)
[2017-07-03] MEDS: ASPIRIN 81 MG ECTAB PO SCH (07:42)
[2017-07-03] MEDS: OSELTAMIVIR PHOSPHATE 75 MG CAP PO SCH (07:42)
[2017-07-03] MEDS: LISINOPRIL 2.5 MG TAB PO SCH (07:43)
[2017-07-03] MEDS: CEPHALEXIN MONOHYDRATE 500 MG CAP PO SCH ×2 (07:44→20:41)
[2017-07-03] MEDS: MAGNESIUM OXIDE 400 MG TAB PO SCH (07:45)
[2017-07-03] MEDS: ENOXAPARIN 30 MG/0.3 ML SYR SQ SCH (07:45)
[2017-07-03] MEDS: TRIAMCINOLONE ACET 0.1% OINT 15 GM TUBE TOP SCH ×2 (07:47→20:43)
[2017-07-03] MEDS: INSULIN ASPART 100 UNITS/ML 3 ML PEN SC SCH ×4 (08:58→20:46)
--- NOTE | 2017-07-03 13:19 | Family Medicine Progress Note ---
Progress Note Date of Service Jul 03, 2017. Subjective Pt evaluation today including: conversation w/ patient, physical exam, chart review, lab review, review of studies, conversation w/ wardrobe consultant, review of inpatient medication list Patient well this morning, denies acute overnight events. She is claiming some discomfort in her left leg, which always bothers her - the discomfort is not different from usual. She denies fevers/chills, headaches, CP, palpitations, dyspnea, abdominal pain, or rashes. She is tolerating diet without nausea or vomiting, ambulating to and from the washroom without exacerbating symptoms, and voiding and stooling appropriately. She understands she is awaiting rehab placement. ROS is unremarkable except as noted above. Objective Vital Signs Date Time Temp Pulse Resp B/P (MAP) Pulse Ox O2 Delivery O2 Flow Rate FiO2 07/03/17 08:00 Room Air 07/03/17 07:33 36.4 53 18 156/71 (99) 100 Room Air 07/03/17 04:51 143/68 (93) 07/03/17 00:00 Room Air 07/02/17 23:59 36.3 61 18 160/82 (108) 98 Room Air 07/02/17 20:00 Room Air 07/02/17 16:00 Room Air 07/02/17 15:25 36.8 54 18 136/67 (90) 97 Room Air Physical Exam General Appearance: WD/WN, no apparent distress Eyes: normal inspection ENT: hearing grossly normal Neck: supple Respiratory/Chest: lungs clear, normal breath sounds, no respiratory distress, no accessory muscle use Cardiovascular: regular rate, rhythm Abdomen: normal bowel sounds, non tender, soft Extremities: non-tender, normal inspection, no pedal edema, no calf tenderness Neurologic/Psychiatric: alert, normal mood/affect Skin: normal color, warm/dry, no rash, + pertinent finding (Wound on left foot) Laboratory Results Results Past 24 Hours Test 07/02/17 16:50 07/02/17 20:21 07/03/17 07:39 07/03/17 11:39 Range/Units Bedside Glucose 175 192 152 299 70-90 mg/dl Assessment and Plan 86 year old female with influenza A and B, secondarily having NSTEMI due to systemic illness. In addition, the patient has a chronic osteomyelitis of the left 2nd toe and is on a prolonged course of Keflex. Acute issues are resolved. NSTEMI/ ischemic cardiomyopathy / chronic benign HTN - no chest pain overnight. BP remains elevated today at 140-150s systolic; HR in the 50-60s. Cardiology recommendations appreciated - Continue: ASA, clopidogrel, atorvastatin - Continue metoprolol and lisinopril - no further titration, as blood pressures acceptable for age. - Will discuss cardiac rehab with patient/her family Osteomyelitis - Continue Keflex 4-6 weeks - Will arrange for outpatient wound care clinic combined with ID follow-up Influenza A and B - Course of Tamiflu completed. No new respiratory symptoms; respiratory status stable on examination Hypothyroidism - Continue Synthroid Diabetes mellitus - Continue ISS - BGS ac/hs VTE Ppx - SCD Knee - Lovenox 40mg SC daily Code Status - Level I Full Code Disposition - OT and PT evaluations - Case management to assist on seeing what options are available for long-term placement for the patient as home is not a suitable environment for her anymore according to daughter. Continued [facility] stay due to: home environment unsafe for pt Discharge planning: rehab hospital Resident Tracking Resident Involvement: Resident Care Provided Care Provided: Adult Hospital Medicine Reviewed: Pt Seen/Exam by Me History Pt continues to feel improved. Feels she is getting stronger. No further n/v. Pt is tolerating PO without issue. No chest pain or SOB. Agree with HPI/ROS as noted by resident General Appearance: WD/WN, no apparent distress Respiratory: normal breath sounds, no respiratory distress Cardiovascular: normal peripheral pulses, regular rate, rhythm Gastrointestinal: non tender, soft Extremities: non-tender, no pedal edema Neurologic/Psychiatric: alert, normal mood/affect Skin Characteristics: normal color, warm/dry Assessment/Plan Agree with plan as outlined above Flu A/B +, tamiflu Toe osteo, planning for keflex for 4-6 weeks total NSTEMI, statin, plavix, cardiac rehab Conservative management Stable for d/c to facility when [facility] are complete and pt is accepted
[2017-07-03 16:10] VITALS: BP 159/87; PULSE 52; TEMP 36.7; O2SAT 100
[2017-07-04] VITALS: BP 155/96; PULSE 61; TEMP 36.5; O2SAT 99
[2017-07-04] MEDS: LEVOTHYROXINE 50 MCG TAB PO SCH (05:48)
[2017-07-04 07:29] VITALS: BP 165/75; PULSE 69; TEMP 37; O2SAT 97
[2017-07-04] MEDS: CLOPIDOGREL BISULFATE 75 MG TAB PO SCH (08:11)
[2017-07-04] MEDS: METOPROLOL SUCC 50MG EXT REL TAB PO SCH (08:11)
[2017-07-04] MEDS: ASPIRIN 81 MG ECTAB PO SCH (08:11)
[2017-07-04] MEDS: ATORVASTATIN 40 MG TAB PO SCH (08:11)
[2017-07-04] MEDS: LISINOPRIL 2.5 MG TAB PO SCH (08:12)
[2017-07-04] MEDS: CEPHALEXIN MONOHYDRATE 500 MG CAP PO SCH ×2 (08:12→19:57)
[2017-07-04] MEDS: ENOXAPARIN 30 MG/0.3 ML SYR SQ SCH (08:12)
[2017-07-04] MEDS: TRIAMCINOLONE ACET 0.1% OINT 15 GM TUBE TOP SCH ×2 (08:13→19:56)
[2017-07-04] MEDS: MAGNESIUM OXIDE 400 MG TAB PO SCH (08:13)
[2017-07-04] MEDS: BOOST GLUCOSE CONTROL PO SCH (08:22)
[2017-07-04 08:30] VITALS: O2SAT 97
[2017-07-04] MEDS: INSULIN ASPART 100 UNITS/ML 3 ML PEN SC SCH ×4 (08:49→21:05)
[2017-07-04 15:33] VITALS: BP 144/68; PULSE 57; TEMP 36.8; O2SAT 100
[2017-07-04 16:30] LABS: CALCIUM 8.3 mg/dl (8.5-10.1); CREATININE 0.98 mg/dl (0.60-1.20); POTASSIUM 4.6 mmol/L (3.5-5.1)
[2017-07-04] MEDS ORDERED: INSULIN GLARGINE SOLOSTAR 100 UNITS/ML 3 ML PEN SC ONE (17:24)
--- NOTE | 2017-07-04 17:44 | Family Medicine Progress Note ---
Progress Note Date of Service Jul 04, 2017. Subjective Pt evaluation today including: conversation w/ patient, physical exam, chart review, lab review, review of studies, conversation w/ furniture rental consultant, review of inpatient medication list Patient well this morning, denies acute overnight events. She denies fevers/ chills, headaches, CP, palpitations, dyspnea, abdominal pain, or rashes. She is tolerating diet without nausea or vomiting, ambulating to and from the washroom without exacerbating symptoms, and voiding and stooling appropriately. She understands she is awaiting rehab placement. She is not interested in SNF placement afterwards and intends for eventual discharge to home. ROS is unremarkable except as noted above. Objective Vital Signs Date Time Temp Pulse Resp B/P (MAP) Pulse Ox O2 Delivery O2 Flow Rate FiO2 07/04/17 15:34 Room Air 07/04/17 15:33 36.8 57 18 144/68 (93) 100 Room Air 07/04/17 08:30 97 Room Air 07/04/17 07:29 37.0 69 16 165/75 (105) 97 07/04/17 01:05 Room Air 07/04/17 00:00 36.5 61 18 155/96 (115) 99 Room Air 07/03/17 20:50 Room Air Physical Exam General Appearance: WD/WN, no apparent distress Eyes: normal inspection ENT: hearing grossly normal Neck: supple Respiratory/Chest: lungs clear, normal breath sounds, no respiratory distress, no accessory muscle use Cardiovascular: regular rate, rhythm, no murmur Abdomen: normal bowel sounds, non tender, soft Extremities: non-tender, normal inspection, no pedal edema Neurologic/Psychiatric: alert, normal mood/affect, oriented x 3 Skin: normal color, warm/dry, no rash, + pertinent finding (Wound on left toe) Laboratory Results Results Past 24 Hours Test 07/03/17 20:15 07/04/17 07:49 07/04/17 11:42 07/04/17 16:01 Range/Units Bedside Glucose 203 127 306 70-90 mg/dl Sodium Level 136 136-145 mmol/L Potassium Level 4.6 3.5-5.1 mmol/L Chloride Level 101 98-107 mmol/L Carbon Dioxide Level 32 21-32 mmol/L Anion Gap 3.0 3-11 mmol/L Blood Urea Nitrogen 17 7-18 mg/dl Creatinine 0.98 0.60-1.20 mg/dl Est Creatinine Clear Calc Drug Dose 34.3 ml/min Estimated GFR () 59.7 Estimated GFR (Non- 51.5 BUN/Creatinine Ratio 17.3 10-20 Random Glucose 174 70-99 mg/dl Calcium Level 8.3 8.5-10.1 mg/dl Test 07/04/17 16:33 Range/Units Bedside Glucose 185 70-90 mg/dl Assessment and Plan 86 year old female with influenza A and B, secondarily having NSTEMI due to systemic illness. In addition, the patient has a chronic osteomyelitis of the left 2nd toe and is on a prolonged course of Keflex. Acute issues are resolved. NSTEMI/ ischemic cardiomyopathy / chronic benign HTN - no chest pain overnight. BP remains elevated today at 140-160s systolic; HR in the 50-60s. Cardiology recommendations appreciated - Continue: ASA, clopidogrel, atorvastatin - Continue metoprolol and lisinopril - no further titration, as blood pressures acceptable for age. BMP checked - WNL - Follow up with cardiology with possible referral of cardiac rehab Osteomyelitis - Continue Keflex 4-6 weeks - Will arrange for outpatient wound care clinic combined with ID follow-up Influenza A and B - Course of Tamiflu completed. No new respiratory symptoms; respiratory status stable on examination - Recommend CXR in 4 weeks to assess for improvement in right pleural effusions , possible atelectasis, pulmonary vascular congestion. Hypothyroidism - TSH 2.7 (06/03) - Continue Synthroid Diabetes mellitus - Started Lantus 10units HS, given HbA1c 10.2 (07/05) - Continue ISS - BGS ac/hs VTE Ppx - SCD Knee - Lovenox 40mg SC daily Code Status - Level I Full Code Disposition - OT and PT evaluations - Awaiting approval for [facility] inpatient rehab Continued [facility] stay due to: home environment unsafe for pt Discharge planning: rehab hospital Resident Tracking Resident Involvement: Resident Care Provided Care Provided: Adult Hospital Medicine Reviewed: Pt Seen/Exam by Me History Resident Physician Supervision Note: I interviewed and examined the patient. Discussed with Dr. Medrano and agree with findings and plan as documented in the note. Any exceptions or clarifications are listed here: Patient has no complaints. She denies shortness of breath or chest pain. Vitals reviewed No acute distress, alert awake oriented RRR, 2/6 systolic murmur at the left lower sternal border Lungs with bibasilar crackles Abd +BS soft NT ND Ext left second toe with small wound on plantar surface distal phalanx, no erythema or drainage Pt is an 86 yo female with a h/o DMII, uncontrolled, HTN, Hypothryoidism, here with Influenza A and B respiratory illness, NSTEMI, and new onset acute systolic CHF/ischemic CM. -adding on Lantus today for hyperglycemia and HgbA1C >10% -continue keflex bid and f/u with ID and Wound Care as outpt -f/u Cardiology within 1-2 weeks for NSTEMI and new systolic CHF--> may end up needing diuretic--> recommend daily weights, Low Na+ diet -with severe left KRISTOPHER and moderate Right KRISTOPHER, repeated PRP today and K+ normal, associate attorney normal, caution with ACEI in this situation, but ok to continue for now -recommend following BMP in 1 week at rehab -follow CXR to resolution for bibasilar opacities in 4-6 weeks Documented By: Nasrin Jim
[2017-07-04 23:20] VITALS: BP 148/82; PULSE 55; TEMP 36.3; O2SAT 100
[2017-07-05] MEDS: LEVOTHYROXINE 50 MCG TAB PO SCH (05:55)
[2017-07-05 07:00] LABS: CREATININE 0.85 mg/dl (0.60-1.20)
[2017-07-05 07:16] VITALS: BP 156/77; PULSE 61; TEMP 36.9; O2SAT 98
[2017-07-05] MEDS: CLOPIDOGREL BISULFATE 75 MG TAB PO SCH (08:38)
[2017-07-05] MEDS: ATORVASTATIN 40 MG TAB PO SCH (08:38)
[2017-07-05] MEDS: ASPIRIN 81 MG ECTAB PO SCH (08:38)
[2017-07-05] MEDS: LISINOPRIL 2.5 MG TAB PO SCH (08:39)
[2017-07-05] MEDS: MAGNESIUM OXIDE 400 MG TAB PO SCH (08:39)
[2017-07-05] MEDS: METOPROLOL SUCC 50MG EXT REL TAB PO SCH (08:39)
[2017-07-05] MEDS: CEPHALEXIN MONOHYDRATE 500 MG CAP PO SCH ×2 (08:39→20:58)
[2017-07-05] MEDS: ENOXAPARIN 40 MG/0.4 ML SYR SQ SCH (08:40)
[2017-07-05] MEDS: TRIAMCINOLONE ACET 0.1% OINT 15 GM TUBE TOP SCH ×2 (08:40→20:57)
[2017-07-05] MEDS: INSULIN ASPART 100 UNITS/ML 3 ML PEN SC SCH ×4 (08:45→20:56)
[2017-07-05] MEDS: BOOST GLUCOSE CONTROL PO SCH (08:47)
[2017-07-05] MEDS ORDERED: ARTIFICIAL TEARS OP SOLN OP PRN (11:30)
[2017-07-05] MEDS ORDERED: DOCUSATE SODIUM 100 MG CAP PO ONE (11:45)
[2017-07-05 12:51] VITALS: Ht 162.6 cm; Wt 57.6 kg
[2017-07-05 15:12] VITALS: BP 125/65; PULSE 58; TEMP 36.3; O2SAT 97
--- NOTE | 2017-07-05 20:43 | Family Medicine Progress Note ---
Progress Note Date of Service Jul 05, 2017. Subjective Pt evaluation today including: conversation w/ patient, physical exam, chart review, lab review, review of studies, conversation w/ test consultant, review of inpatient medication list Patient well this morning, denies acute overnight events. With regards to some redness on her right eye/ internal lid, patient denies discharge/matting/ crusting, changes in vision, or pain on EOM. She denies fevers/chills, headaches , CP, palpitations, dyspnea, abdominal pain, or rashes. She is tolerating diet without nausea or vomiting, ambulating to and from the washroom without exacerbating symptoms, and voiding without issue. She does admit that while she has bowel movements, she is straining somewhat. She understands she is awaiting rehab placement. ROS is unremarkable except as noted above. Objective Vital Signs Date Time Temp Pulse Resp B/P (MAP) Pulse Ox O2 Delivery O2 Flow Rate FiO2 07/05/17 16:00 Room Air 07/05/17 15:12 36.3 58 16 125/65 (85) 97 07/05/17 08:30 Room Air 07/05/17 07:16 36.9 61 16 156/77 (103) 98 07/05/17 00:24 Room Air 07/04/17 23:20 36.3 55 16 148/82 (104) 100 Room Air Physical Exam General Appearance: WD/WN, no apparent distress Eyes: normal inspection, PERRL, EOMI, sclerae normal, + abnormal sclerae exam ( slight injection, more likely irritation than infection) ENT: hearing grossly normal Neck: supple Respiratory/Chest: lungs clear, normal breath sounds, no respiratory distress, no accessory muscle use Cardiovascular: regular rate, rhythm, no murmur Abdomen: normal bowel sounds, non tender, soft Extremities: no pedal edema, no calf tenderness Neurologic/Psychiatric: alert, normal mood/affect, oriented x 3 Skin: normal color, warm/dry, no rash, + pertinent finding (Wound on left toe) Laboratory Results Results Past 24 Hours Test 07/05/17 05:22 07/05/17 07:41 07/05/17 11:33 07/05/17 16:33 Range/Units Creatinine 0.85 0.60-1.20 mg/dl Est Creatinine Clear Calc Drug Dose 39.5 ml/min Estimated GFR () 70.9 Estimated GFR (Non- 61.2 Bedside Glucose 82 210 162 70-90 mg/dl Test 07/05/17 19:23 Range/Units Bedside Glucose 209 70-90 mg/dl Assessment and Plan 86 year old female with influenza A and B, secondarily having NSTEMI due to systemic illness. In addition, the patient has a chronic osteomyelitis of the left 2nd toe and is on a prolonged course of Keflex. Acute issues are resolved. NSTEMI/ ischemic cardiomyopathy / chronic benign HTN - no chest pain overnight. BP remains elevated today at 140-160s systolic; HR in the 50-60s. CT abdo/ pelvis done on admission showed extensive atherosclerotic plaque of the abdominal aorta and major branch vessels. 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 Severe left renal artery stenosis. Cardiology recommendations appreciated - Continue: ASA, clopidogrel, atorvastatin - Continue metoprolol and lisinopril - no further titration, as blood pressures acceptable for age. BMP checked - WNL - Follow up with cardiology with possible referral of cardiac rehab Osteomyelitis - Continue Keflex 4-6 weeks - Will arrange for outpatient wound care clinic combined with ID follow-up Constipation - Started regular Colace Right eye irritation - Ordered lubricating eye drops Influenza A and B - Course of Tamiflu completed. No new respiratory symptoms; respiratory status stable on examination - Recommend CXR in 4 weeks to assess for improvement in right pleural effusions , possible atelectasis, pulmonary vascular congestion. Hypothyroidism - TSH 2.7 (06/03) - Continue Synthroid Diabetes mellitus - Reduced Lantus to 6units HS, given HbA1c 10.2 (07/05), but low morning glucose with 10 units. - Continue ISS - BGS ac/hs VTE Ppx - SCD Knee - Lovenox 40mg SC daily Code Status - Level I Full Code Disposition - OT and PT evaluations - Rejected from [facility] inpatient rehab. Looking into SNF placements now. Continued [facility] stay due to: home environment unsafe for pt Discharge planning: halfway facility Resident Tracking Resident Involvement: Resident Care Provided Care Provided: Adult Hospital Medicine Reviewed: Pt Seen/Exam by Me History Resident Physician Supervision Note: I interviewed and examined the patient. Discussed with Dr. Medrano and agree with findings and plan as documented in the note. Any exceptions or clarifications are listed here: Patient has no complaints. She denies shortness of breath or chest pain. She is tolerating regular diet and is ready for discharge. Denies cough. Blood glucose was a bit low and fasting labs this morning Vitals reviewed No acute distress, alert awake oriented RRR, 2/6 systolic murmur at the left lower sternal border Lungs with bibasilar crackles Abd +BS soft NT ND Ext left second toe with small wound on plantar surface distal phalanx, no erythema or drainage, 1+ pitting edema bilateral lower extremities to the knees Pt is an 86 yo female with a h/o DMII, uncontrolled, HTN, Hypothryoidism, here with Influenza A and B respiratory illness, NSTEMI, and new onset acute systolic CHF/ischemic CM. Echocardiogram with LVEF 40-45%, wall motion abnormalities present -DM 2, not on long-term insulin, uncontrolled-Decrease Lantus to 6 units daily at bedtime and tightened her behind her coverage and correction factor for sliding scale insulin with meals -HgbA1C >10% -continue keflex bid and f/u with ID and Wound Care as outpt in 1 week -f/u Cardiology within 1-2 weeks for NSTEMI and new systolic CHF--> may end up needing diuretic--> recommend daily weights, Low Na+ diet -with severe left KRISTOPHER and moderate Right KRISTOPHER, repeated PRP after starting FLACO inhibitor and K+ normal, vat operator 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
[2017-07-05] MEDS: DOCUSATE SODIUM 100 MG CAP PO SCH (20:57)
[2017-07-05] MEDS ORDERED: INSULIN GLARGINE SOLOSTAR 100 UNITS/ML 3 ML PEN SC SCH ×2 (21:00)
[2017-07-05 22:30] VITALS: BP 133/71; PULSE 53; TEMP 36.3; O2SAT 97
[2017-07-06] MEDS: ACETAMINOPHEN 325 MG TAB PO PRN (00:29)
[2017-07-06] MEDS ORDERED: TRIAMCINOLONE ACET 0.5% CR 15 GM TUBE EXT ONE (03:15)
[2017-07-06] MEDS ORDERED: TRIAMCINOLONE ACET 0.1% CR 80 GM TUBE EXT ONE (03:30)
[2017-07-06] MEDS ORDERED: PREMARIN VAG CRM 14 APPLN/30 GM TUBE TOP ONE (03:30)
--- NOTE | 2017-07-06 03:42 | Progress Note ---
Progress Note Date of Service Jul 06, 2017. Progress Note contacted as patient was found to have bleeding after BM and it was noted to come from prolapsed uterus, offered to replace uterus with a one time tx of triamcinolone and premarin however patient states that this is longstanding and would prefer to defer any intervention at this time. Grade IV prolapse. Unknown if patient is aware of possibility of pessary placement? patient states to RN she definitely would not like any surgical intervention
[2017-07-06] MEDS: LEVOTHYROXINE 50 MCG TAB PO SCH (06:07)
[2017-07-06 07:48] VITALS: BP 150/68; PULSE 59; TEMP 36.6; O2SAT 95
[2017-07-06] MEDS: BOOST GLUCOSE CONTROL PO SCH (08:19)
[2017-07-06] MEDS: MAGNESIUM OXIDE 400 MG TAB PO SCH (08:19)
[2017-07-06] MEDS: CEPHALEXIN MONOHYDRATE 500 MG CAP PO SCH ×2 (08:19→20:27)
[2017-07-06] MEDS: ATORVASTATIN 40 MG TAB PO SCH (08:19)
[2017-07-06] MEDS: LISINOPRIL 2.5 MG TAB PO SCH (08:19)
[2017-07-06] MEDS: ASPIRIN 81 MG ECTAB PO SCH (08:19)
[2017-07-06] MEDS: CLOPIDOGREL BISULFATE 75 MG TAB PO SCH (08:19)
[2017-07-06] MEDS: METOPROLOL SUCC 50MG EXT REL TAB PO SCH (08:19)
[2017-07-06] MEDS: DOCUSATE SODIUM 100 MG CAP PO SCH ×2 (08:20→22:07)
[2017-07-06] MEDS: ENOXAPARIN 40 MG/0.4 ML SYR SQ SCH (08:20)
[2017-07-06] MEDS: TRIAMCINOLONE ACET 0.1% OINT 15 GM TUBE TOP SCH ×2 (08:20→20:00)
[2017-07-06] MEDS: INSULIN ASPART 100 UNITS/ML 3 ML PEN SC SCH ×4 (08:30→20:39)
[2017-07-06 15:44] VITALS: BP 135/78; PULSE 59; TEMP 36.5; O2SAT 98
--- NOTE | 2017-07-06 18:52 | Family Medicine Progress Note ---
Progress Note Date of Service Jul 06, 2017. Subjective Pt evaluation today including: conversation w/ patient, physical exam, chart review, lab review PO Intake: good Denies any shortness of breath, chest pain, wheezing. Had bleeding in the form with and was evaluated by the night nurse and found to have uterine prolapse, declined Premarin stated that she has been" pushing it up " for over 60 years. Constitutional: No fever, No chills ENT: + hearing loss Respiratory: No cough, No sputum, No shortness of breath Cardiovascular: No chest pain Abdomen: No pain, No nausea, No vomiting Female : + problem reported (uterine prolapse), No dysuria Medications Current Inpatient Medications Medications (Trade) Dose Ordered Sig/Thelma Route Start Time Stop Time Status Last Admin Dose Admin Nitroglycerin (Nitrostat Tab) 0.4 mg Q5M PRN SL 06/27/17 22:15 07/27/17 22:14 Aspirin (Ecotrin Tab) 81 mg QAM PO 06/28/17 09:00 07/28/17 08:59 07/06/17 08:19 81 MG Ondansetron HCl (Zofran Tab) 4 mg Q4H PRN PO 06/27/17 22:15 07/27/17 22:14 06/30/17 21:05 4 MG Levothyroxine Sodium (Synthroid Tab) 50 mcg DAILYBB PO 06/28/17 06:00 07/28/17 05:59 07/06/17 06:07 50 MCG Triamcinolone Acetonide (Kenalog 0.1% Oint) 1 appln BID TOP 06/28/17 09:00 07/28/17 08:59 07/06/17 08:20 1 APPLN Insulin Aspart (novoLOG ASPART) SLIDING SCALE If C... ACHS SC 06/28/17 07:00 07/28/17 06:59 07/06/17 17:39 5 UNITS Glucose (Glucose 40% Gel) 15-30 GRAMS 15 GRAMS... UD PRN PO 06/27/17 22:15 07/27/17 22:14 Glucose (Glucose Chew Tab) 4-8 Tablets 4 Tabl... UD PRN PO 06/27/17 22:15 07/27/17 22:14 Dextrose (Dextrose 50% 50ML Syringe) 25-50ML OF 50% DW IV FOR... UD PRN IV 06/27/17 22:15 07/27/17 22:14 Glucagon (Glucagon Inj) 1 mg UD PRN SQ 06/27/17 22:15 07/27/17 22:14 Atorvastatin Calcium (Lipitor Tab) 40 mg QAM PO 06/29/17 09:00 07/29/17 08:59 07/06/17 08:19 40 MG Cephalexin Monohydrate (Keflex Cap) 500 mg BID PO 06/28/17 21:00 08/09/17 20:59 07/06/17 08:19 500 MG Metoprolol Succinate (Toprol Xl Tab) 100 mg QAM PO 06/29/17 09:00 07/29/17 08:59 07/06/17 08:19 100 MG Magnesium Oxide (Mag-Ox Tab) 400 mg QAM PO 06/30/17 09:00 07/28/17 20:59 07/06/17 08:19 400 MG Enteral Nutritional Formula (Boost Glucose Control) 1 can DAILY PO 06/30/17 09:00 07/30/17 08:59 07/06/17 08:19 1 CAN Clopidogrel Bisulfate (plAVix TAB) 75 mg QAM PO 06/30/17 09:00 07/30/17 08:59 07/06/17 08:19 75 MG Lisinopril (Zestril Tab) 5 mg QAM PO 07/03/17 08:00 07/29/17 08:59 07/06/17 08:19 5 MG Acetaminophen (Tylenol Tab) 650 mg Q4H PRN PO 07/03/17 03:45 08/02/17 03:44 07/06/17 00:29 650 MG Enoxaparin Sodium (Lovenox Inj) 40 mg QAM SQ 07/05/17 08:00 08/04/17 07:59 07/06/17 08:20 40 MG Docusate Sodium (coLACE CAP) 100 mg BID PO 07/05/17 20:00 08/04/17 19:59 07/06/17 08:20 100 MG Artificial Tears (Artificial Tears) 2 drops TID PRN OP 07/05/17 11:30 08/04/17 11:29 Insulin Glargine (Lantus Solostar Pen) 6 units HS SC 07/05/17 21:00 08/04/17 20:59 07/05/17 20:56 6 UNITS Objective Vital Signs Date Time Temp Pulse Resp B/P (MAP) Pulse Ox O2 Delivery O2 Flow Rate FiO2 07/06/17 16:00 Room Air 07/06/17 15:44 36.5 59 16 135/78 (97) 98 07/06/17 08:00 Room Air 07/06/17 07:48 36.6 59 16 150/68 (95) 95 07/06/17 00:00 Room Air 07/05/17 22:30 36.3 53 16 133/71 (91) 97 Room Air Physical Exam General Appearance: WD/WN, no apparent distress Eyes: normal inspection ENT: hearing grossly normal Neck: supple Respiratory/Chest: lungs clear, normal breath sounds, no respiratory distress Cardiovascular: regular rate, rhythm Abdomen: normal bowel sounds, non tender, soft Extremities: normal range of motion, non-tender, + pertinent finding (wound on left toe) Neurologic/Psychiatric: alert, normal mood/affect, oriented x 3 Laboratory Results Test 07/06/17 16:33 Bedside Glucose 195 mg/dl (70-90) Assessment and Plan NSTEMI/ ischemic cardiomyopathy / chronic benign HTN/new onset systolic CHF -Echo revealed focal thinning of the basal septum with no left front or outflow obstruction, EF of 40-45% with inferior wall akinesis and severe anterior wall hypokinesis CT abdo/pelvis revealed 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 Severe left renal artery stenosis. - Continue: ASA, clopidogrel, atorvastatin - Continue metoprolol and lisinopril Osteomyelitis - Continue Keflex 4-6 weeks - Will arrange for outpatient wound care clinic combined with ID follow-up Constipation - Started regular Colace Influenza A and B - Completed course of Tamiflu -Follow up chest x-ray in 4 weeks Uterine prolapse: Consider referral to [facility] [employer] [facility] for pessary placement upon discharge Hypothyroidism - TSH 2.7 (06/03) - Continue Synthroid Diabetes mellitus -Restart metformin 500 mg twice a day and can be titrated up - Continue ISS - BGS ac/hs VTE Ppx - SCD Knee - Lovenox 40mg SC daily Code Status - Level I Full Code Disposition - Was rejected at [facility], [facility] working on placement at other snf Resident Tracking Resident Involvement: Resident Care Provided Care Provided: Adult Hospital Medicine Reviewed: Pt Seen/Exam by Me History Resident Physician Supervision Note: I interviewed and examined the patient. Discussed with Dr. Mota and agree with findings and plan as documented in the note. Any exceptions or clarifications are listed here: Patient has no complaints. She denies shortness of breath or chest pain. Blood sugars are improved with decreasing dose of Lantus last night. Awaiting placement Vitals reviewed No acute distress, alert awake oriented RRR, 2/6 systolic murmur at the left lower sternal border Lungs fairly clear today Abd +BS soft NT ND Ext 1+ pitting edema bilateral lower extremities to the knees Pt is an 86 yo female with a h/o DMII, uncontrolled, HTN, Hypothyroidism, here with Influenza A and B respiratory illness, NSTEMI, and new onset acute systolic CHF/ischemic CM. Echocardiogram with LVEF 40-45%, wall motion abnormalities present -DM 2, not on long-term insulin, uncontrolled-HgbA1C >10%. Okay to switch to metformin and titrate up to 1000 mg twice a day as tolerated, continue mealtime insulin -continue keflex bid for 4-6 weeks and f/u with ID and Wound Care as outpt in 1 week -f/u Cardiology within 1-2 weeks for NSTEMI and new systolic CHF--> may end up needing diuretic--> recommend daily weights, Low Na+ diet -with severe left KRISTOPHER and moderate Right KRISTOPHER, repeated PRP after starting FLACO inhibitor and K+ normal, securities sales associate 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
[2017-07-06] MEDS: METFORMIN HCL 500 MG TAB PO SCH (19:30)
[2017-07-06 23:29] VITALS: BP 157/78; PULSE 59; TEMP 36.2; O2SAT 97
[2017-07-07] MEDS: ACETAMINOPHEN 325 MG TAB PO PRN (05:54)
[2017-07-07] MEDS: LEVOTHYROXINE 50 MCG TAB PO SCH (06:33)
[2017-07-07 06:52] LABS: HEMATOCRIT 32.1 % (37-47); HEMOGLOBIN 10.5 g/dL (12.0-16.0); MEAN CELL VOLUME 94.7 fL (80-100); MEAN CORPUSCULAR HGB CONC 32.7 g/dl (32-36); MEAN PLATELET VOLUME 9.8 fL (7.4-10.4); PLATELET COUNT 245 K/uL (130-400); RED CELL DISTRIBUTION WIDTH CV 13.8 % (11.5-14.5); RED CELL DISTRIBUTION WIDTH SD 47.5 fL (36.4-46.3); WHITE BLOOD COUNT 6.13 K/uL (4.8-10.8)
[2017-07-07 07:02] VITALS: BP 134/67; PULSE 57; TEMP 36.5; O2SAT 97
[2017-07-07] MEDS: DOCUSATE SODIUM 100 MG CAP PO SCH ×3 (07:55→19:43)
[2017-07-07] MEDS: CEPHALEXIN MONOHYDRATE 500 MG CAP PO SCH ×2 (07:55→19:34)
[2017-07-07] MEDS: METFORMIN HCL 500 MG TAB PO SCH ×2 (07:55→17:36)
[2017-07-07] MEDS: LISINOPRIL 2.5 MG TAB PO SCH (07:55)
[2017-07-07] MEDS: MAGNESIUM OXIDE 400 MG TAB PO SCH (07:55)
[2017-07-07] MEDS: ENOXAPARIN 40 MG/0.4 ML SYR SQ SCH (07:56)
[2017-07-07] MEDS: TRIAMCINOLONE ACET 0.1% OINT 15 GM TUBE TOP SCH ×2 (07:56→19:36)
[2017-07-07] MEDS: ATORVASTATIN 40 MG TAB PO SCH (09:04)
[2017-07-07] MEDS: ASPIRIN 81 MG ECTAB PO SCH (09:04)
[2017-07-07] MEDS: METOPROLOL SUCC 50MG EXT REL TAB PO SCH (09:04)
[2017-07-07] MEDS: CLOPIDOGREL BISULFATE 75 MG TAB PO SCH (09:04)
[2017-07-07] MEDS: BOOST GLUCOSE CONTROL PO SCH (09:04)
[2017-07-07] MEDS: INSULIN ASPART 100 UNITS/ML 3 ML PEN SC SCH ×4 (09:07→21:40)
--- NOTE | 2017-07-07 13:19 | Family Medicine Progress Note ---
Progress Note Date of Service Jul 07, 2017. Subjective Pt evaluation today including: conversation w/ patient, physical exam, chart review, lab review, review of studies Pain: Patient denies any acute pain Voiding: no voiding problems, no incontinence Patient is resting comfortably in bed this morning with no acute complaints overnight Constitutional: No fever, No chills, No sweats, No fatigue Respiratory: No cough, No wheezing, No shortness of breath Cardiovascular: No chest pain, No edema, No palpitations Abdomen: No pain, No nausea, No vomiting, No diarrhea Musculoskeletal: No joint pain Medications Current Inpatient Medications Medications (Trade) Dose Ordered Sig/Thelma Route Start Time Stop Time Status Last Admin Dose Admin Nitroglycerin (Nitrostat Tab) 0.4 mg Q5M PRN SL 06/27/17 22:15 07/27/17 22:14 Aspirin (Ecotrin Tab) 81 mg QAM PO 06/28/17 09:00 07/28/17 08:59 07/07/17 09:04 81 MG Ondansetron HCl (Zofran Tab) 4 mg Q4H PRN PO 06/27/17 22:15 07/27/17 22:14 06/30/17 21:05 4 MG Levothyroxine Sodium (Synthroid Tab) 50 mcg DAILYBB PO 06/28/17 06:00 07/28/17 05:59 07/07/17 06:33 50 MCG Triamcinolone Acetonide (Kenalog 0.1% Oint) 1 appln BID TOP 06/28/17 09:00 07/28/17 08:59 07/07/17 07:56 1 APPLN Insulin Aspart (novoLOG ASPART) SLIDING SCALE If C... ACHS SC 06/28/17 07:00 07/28/17 06:59 07/07/17 12:53 10 UNITS Glucose (Glucose 40% Gel) 15-30 GRAMS 15 GRAMS... UD PRN PO 06/27/17 22:15 07/27/17 22:14 Glucose (Glucose Chew Tab) 4-8 Tablets 4 Tabl... UD PRN PO 06/27/17 22:15 07/27/17 22:14 Dextrose (Dextrose 50% 50ML Syringe) 25-50ML OF 50% DW IV FOR... UD PRN IV 06/27/17 22:15 07/27/17 22:14 Glucagon (Glucagon Inj) 1 mg UD PRN SQ 06/27/17 22:15 07/27/17 22:14 Atorvastatin Calcium (Lipitor Tab) 40 mg QAM PO 06/29/17 09:00 07/29/17 08:59 07/07/17 09:04 40 MG Cephalexin Monohydrate (Keflex Cap) 500 mg BID PO 06/28/17 21:00 08/09/17 20:59 07/07/17 07:55 500 MG Metoprolol Succinate (Toprol Xl Tab) 100 mg QAM PO 06/29/17 09:00 07/29/17 08:59 07/07/17 09:04 100 MG Magnesium Oxide (Mag-Ox Tab) 400 mg QAM PO 06/30/17 09:00 07/28/17 20:59 07/07/17 07:55 400 MG Enteral Nutritional Formula (Boost Glucose Control) 1 can DAILY PO 06/30/17 09:00 07/30/17 08:59 07/07/17 09:04 1 CAN Clopidogrel Bisulfate (plAVix TAB) 75 mg QAM PO 06/30/17 09:00 07/30/17 08:59 07/07/17 09:04 75 MG Lisinopril (Zestril Tab) 5 mg QAM PO 07/03/17 08:00 07/29/17 08:59 07/07/17 07:55 5 MG Acetaminophen (Tylenol Tab) 650 mg Q4H PRN PO 07/03/17 03:45 08/02/17 03:44 07/07/17 05:54 650 MG Enoxaparin Sodium (Lovenox Inj) 40 mg QAM SQ 07/05/17 08:00 08/04/17 07:59 07/07/17 07:56 40 MG Docusate Sodium (coLACE CAP) 100 mg BID PO 07/05/17 20:00 08/04/17 19:59 07/07/17 07:55 100 MG Artificial Tears (Artificial Tears) 2 drops TID PRN OP 07/05/17 11:30 08/04/17 11:29 Metformin HCl (Glucophage Tab) 500 mg BIDM PO 07/06/17 19:30 08/05/17 19:29 07/07/17 07:55 500 MG Objective Vital Signs Date Time Temp Pulse Resp B/P (MAP) Pulse Ox O2 Delivery O2 Flow Rate FiO2 07/07/17 09:16 Room Air 07/07/17 07:02 36.5 57 18 134/67 (89) 97 Room Air 07/07/17 00:00 Room Air 07/06/17 23:29 36.2 59 20 157/78 (104) 97 Room Air 07/06/17 20:00 Room Air 07/06/17 16:00 Room Air 07/06/17 15:44 36.5 59 16 135/78 (97) 98 Physical Exam General Appearance: WD/WN, no apparent distress Eyes: normal inspection, sclerae normal Neck: supple, no carotid bruits Respiratory/Chest: chest non-tender, lungs clear, normal breath sounds Cardiovascular: regular rate, rhythm, no edema, no gallop Abdomen: normal bowel sounds, non tender, soft Extremities: no calf tenderness, + pertinent finding (Dressings over right foot c/d/i) Neurologic/Psychiatric: alert, normal mood/affect, oriented x 3 Laboratory Results Results Past 24 Hours Test 07/06/17 16:33 07/06/17 20:19 07/07/17 06:14 07/07/17 07:43 Range/Units Bedside Glucose 195 198 157 70-90 mg/dl White Blood Count 6.13 4.8-10.8 K/uL Red Blood Count 3.39 4.2-5.4 M/uL Hemoglobin 10.5 12.0-16.0 g/dL Hematocrit 32.1 37-47 % Mean Corpuscular Volume 94.7 80-100 fL Mean Corpuscular Hemoglobin 31.0 25-34 pg Mean Corpuscular Hemoglobin Concent 32.7 32-36 g/dl RDW Standard Deviation 47.5 36.4-46.3 fL RDW Coefficient of Variation 13.8 11.5-14.5 % Platelet Count 245 130-400 K/uL Mean Platelet Volume 9.8 7.4-10.4 fL Test 07/07/17 11:52 Range/Units Bedside Glucose 252 70-90 mg/dl Assessment and Plan The patient is an 86 year old female with a past medical history of hypertension , diabetes, hypothyroidism, and uterine prolapse that initially presented with weakness and fatigue and was found to have an NSTEMI, Influenza A and B, and Osteomyelitis NSTEMI/ ischemic cardiomyopathy / chronic benign HTN/new onset systolic CHF - Echo 06/28: Mild LV dysfunction. LVEF 40-45%. Inferior akinesis, severe inferolateral hypokinesis. - CT Abd/Pelvis 06/27: Extensive atherosclerotic plaque of the abdominal aorta and major branch vessels, suboptimally assessed on this non-CTA exam. 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 Severe left renal artery stenosis. - Evaluated and followed by Cardiology - Continue ASA, clopidogrel, atorvastatin - Continue metoprolol succinate and lisinopril - Recheck BMP in 1 week after discharge due to recently starting ACEi and Renal Stenosis mentioned above - Low Sodium diet on discharge due to ischemic cardiomyopathy Osteomyelitis - Continue Keflex 500mg BID 4-6 weeks - Will arrange for outpatient wound care clinic combined with ID follow-up Constipation - Had BM this morning - Continue Colace Influenza A and B - no complaints of shortness of breath at this time and saturating well on room air - Completed course of Tamiflu - Follow up chest x-ray in 4 weeks Uterine prolapse: - Patient has refused surgical intervention in the past, ongoing for many years - Consider referral to FIELD MARKETING REPRESENTATIVE for pessary placement upon discharge Hypothyroidism - TSH 2.7 (06/03) - Continue Synthroid 50 mcg daily Diabetes mellitus - A1c of 10.2 - Metformin 500 mg BID - Continue ISS - BGS ac/hs DVT - SCD Knee - Lovenox 40mg SC daily Code Status - Level I Full Code Disposition - Working on SNF placement for Sunday Resident Tracking Resident Involvement: Resident Care Provided Care Provided: Adult Hospital Medicine Reviewed: Pt Seen/Exam by Me History Resident Physician Supervision Note: I interviewed and examined the patient. Discussed with Dr. Lozada and agree with findings and plan as documented in the note. Any exceptions or clarifications are listed here: Patient has no complaints. She is eating regular diabetic diet, denies chest pain or shortness of breath, no cough. Still awaiting placement. Hyperglycemic again after discontinuing Lantus for low morning blood sugars. Vitals reviewed No acute distress, alert awake oriented RRR, 2/6 systolic murmur at the left lower sternal border Lungs clear Abd +BS soft NT ND Ext 1+ pitting edema bilateral lower extremities to the knees, left second toe wound on the plantar surface is healing, no drainage or surrounding erythema Pt is an 86 yo female with a h/o DMII, uncontrolled, HTN, Hypothyroidism, here with Influenza A and B respiratory illness, NSTEMI, and new onset acute systolic CHF/ischemic CM. Has been stable for quite some time now. Awaiting placement Echocardiogram with LVEF 40-45%, wall motion abnormalities present -DM 2, not on long-term insulin, uncontrolled-HgbA1C >10%. Was started on Lantus 6 units at bedtime and was having low morning fasting blood sugars.- Continue metformin and titrate up to 1000 mg twice a day as tolerated, continue mealtime insulin, add Lantus 5 units subcutaneous every morning back on -continue keflex bid for 4-6 weeks and f/u with ID and Wound Care as outpt in 1 week -f/u Cardiology within 1-2 weeks for NSTEMI and new systolic CHF--> may end up needing diuretic--> recommend daily weights, Low Na+ diet added today -with severe left KRISTOPHER and moderate Right KRISTOPHER, repeated PRP after starting FLACO inhibitor and K+ normal, boarding specialist 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
[2017-07-07 15:36] VITALS: BP 109/67; PULSE 59; TEMP 37; O2SAT 99
[2017-07-07 23:09] VITALS: BP 108/74; PULSE 61; TEMP 36.5; O2SAT 100
[2017-07-08] MEDS: LEVOTHYROXINE 50 MCG TAB PO SCH (06:15)
[2017-07-08 06:48] LABS: CREATININE 0.92 mg/dl (0.60-1.20)
[2017-07-08] MEDS: DOCUSATE SODIUM 100 MG CAP PO SCH ×2 (07:08→20:13)
[2017-07-08] MEDS: ATORVASTATIN 40 MG TAB PO SCH (07:24)
[2017-07-08] MEDS: METOPROLOL SUCC 50MG EXT REL TAB PO SCH (07:24)
[2017-07-08] MEDS: METFORMIN HCL 500 MG TAB PO SCH ×2 (07:24→17:49)
[2017-07-08] MEDS: ASPIRIN 81 MG ECTAB PO SCH (07:24)
[2017-07-08] MEDS: CLOPIDOGREL BISULFATE 75 MG TAB PO SCH (07:25)
[2017-07-08] MEDS: CEPHALEXIN MONOHYDRATE 500 MG CAP PO SCH ×2 (07:25→20:13)
[2017-07-08] MEDS: LISINOPRIL 2.5 MG TAB PO SCH (07:25)
[2017-07-08] MEDS: MAGNESIUM OXIDE 400 MG TAB PO SCH (07:25)
[2017-07-08] MEDS: TRIAMCINOLONE ACET 0.1% OINT 15 GM TUBE TOP SCH ×2 (07:26→20:14)
[2017-07-08] MEDS: ENOXAPARIN 40 MG/0.4 ML SYR SQ SCH (07:26)
[2017-07-08 07:38] VITALS: BP 126/61; PULSE 56; TEMP 36.8; O2SAT 99
[2017-07-08 08:00] VITALS: PULSE 61
[2017-07-08] MEDS: INSULIN GLARGINE SOLOSTAR 100 UNITS/ML 3 ML PEN SC SCH (08:38)
[2017-07-08] MEDS: INSULIN ASPART 100 UNITS/ML 3 ML PEN SC SCH ×4 (08:38→20:24)
[2017-07-08] MEDS: BOOST GLUCOSE CONTROL PO SCH (08:41)
[2017-07-08 15:25] VITALS: BP 139/72; PULSE 59; TEMP 36.6; O2SAT 100
--- NOTE | 2017-07-08 21:08 | Family Medicine Progress Note ---
Progress Note Date of Service Jul 08, 2017. Subjective Pt evaluation today including: conversation w/ patient, physical exam, chart review, lab review, review of studies Pain: No pain reported this morning Voiding: no voiding problems, no incontinence Patient resting comfortably in bed this morning with no acute complaints Constitutional: No fever, No chills, No fatigue Respiratory: No cough, No sputum, No shortness of breath Cardiovascular: No chest pain, No palpitations Abdomen: No pain, No nausea, No vomiting, No diarrhea, No constipation Female : No dysuria Medications Current Inpatient Medications Medications (Trade) Dose Ordered Sig/Thelma Route Start Time Stop Time Status Last Admin Dose Admin Nitroglycerin (Nitrostat Tab) 0.4 mg Q5M PRN SL 06/27/17 22:15 07/27/17 22:14 Aspirin (Ecotrin Tab) 81 mg QAM PO 06/28/17 09:00 07/28/17 08:59 07/08/17 07:24 81 MG Ondansetron HCl (Zofran Tab) 4 mg Q4H PRN PO 06/27/17 22:15 07/27/17 22:14 06/30/17 21:05 4 MG Levothyroxine Sodium (Synthroid Tab) 50 mcg DAILYBB PO 06/28/17 06:00 07/28/17 05:59 07/08/17 06:15 50 MCG Triamcinolone Acetonide (Kenalog 0.1% Oint) 1 appln BID TOP 06/28/17 09:00 07/28/17 08:59 07/08/17 20:14 1 APPLN Insulin Aspart (novoLOG ASPART) SLIDING SCALE If C... ACHS SC 06/28/17 07:00 07/28/17 06:59 07/08/17 20:24 2 UNITS Glucose (Glucose 40% Gel) 15-30 GRAMS 15 GRAMS... UD PRN PO 06/27/17 22:15 07/27/17 22:14 Glucose (Glucose Chew Tab) 4-8 Tablets 4 Tabl... UD PRN PO 06/27/17 22:15 07/27/17 22:14 Dextrose (Dextrose 50% 50ML Syringe) 25-50ML OF 50% DW IV FOR... UD PRN IV 06/27/17 22:15 07/27/17 22:14 Glucagon (Glucagon Inj) 1 mg UD PRN SQ 06/27/17 22:15 07/27/17 22:14 Atorvastatin Calcium (Lipitor Tab) 40 mg QAM PO 06/29/17 09:00 07/29/17 08:59 07/08/17 07:24 40 MG Cephalexin Monohydrate (Keflex Cap) 500 mg BID PO 06/28/17 21:00 08/09/17 20:59 07/08/17 20:13 500 MG Metoprolol Succinate (Toprol Xl Tab) 100 mg QAM PO 06/29/17 09:00 07/29/17 08:59 07/08/17 07:24 100 MG Magnesium Oxide (Mag-Ox Tab) 400 mg QAM PO 06/30/17 09:00 07/28/17 20:59 07/08/17 07:25 400 MG Enteral Nutritional Formula (Boost Glucose Control) 1 can DAILY PO 06/30/17 09:00 07/30/17 08:59 07/08/17 08:41 1 CAN Clopidogrel Bisulfate (plAVix TAB) 75 mg QAM PO 06/30/17 09:00 07/30/17 08:59 07/08/17 07:25 75 MG Lisinopril (Zestril Tab) 5 mg QAM PO 07/03/17 08:00 07/29/17 08:59 07/08/17 07:25 5 MG Acetaminophen (Tylenol Tab) 650 mg Q4H PRN PO 07/03/17 03:45 08/02/17 03:44 07/07/17 05:54 650 MG Enoxaparin Sodium (Lovenox Inj) 40 mg QAM SQ 07/05/17 08:00 08/04/17 07:59 07/08/17 07:26 40 MG Docusate Sodium (coLACE CAP) 100 mg BID PO 07/05/17 20:00 08/04/17 19:59 07/08/17 20:13 100 MG Artificial Tears (Artificial Tears) 2 drops TID PRN OP 07/05/17 11:30 08/04/17 11:29 Metformin HCl (Glucophage Tab) 500 mg BIDM PO 07/06/17 19:30 08/05/17 19:29 07/08/17 17:49 500 MG Insulin Glargine (Lantus Solostar Pen) 5 units QAM SC 07/08/17 08:00 08/07/17 07:59 07/08/17 08:38 5 UNITS Objective Vital Signs Date Time Temp Pulse Resp B/P (MAP) Pulse Ox O2 Delivery O2 Flow Rate FiO2 07/08/17 16:00 Room Air 07/08/17 15:25 36.6 59 18 139/72 (94) 100 07/08/17 09:14 Room Air 07/08/17 08:00 61 07/08/17 07:38 36.8 56 18 126/61 (82) 99 Room Air 07/08/17 01:00 Room Air 07/07/17 23:09 36.5 61 20 108/74 (85) 100 Room Air Physical Exam General Appearance: WD/WN, no apparent distress Eyes: normal inspection, sclerae normal Neck: supple, no carotid bruits Respiratory/Chest: chest non-tender, lungs clear, normal breath sounds Cardiovascular: regular rate, rhythm, no edema, no gallop Abdomen: normal bowel sounds, non tender, soft Neurologic/Psychiatric: alert, normal mood/affect, oriented x 3 Laboratory Results Results Past 24 Hours Test 07/08/17 05:27 07/08/17 07:41 07/08/17 11:36 07/08/17 12:07 Range/Units Creatinine 0.92 0.60-1.20 mg/dl Est Creatinine Clear Calc Drug Dose 36.5 ml/min Estimated GFR () 64.4 Estimated GFR (Non- 55.6 Bedside Glucose 164 167 141 70-90 mg/dl Test 07/08/17 16:06 Range/Units Bedside Glucose 179 70-90 mg/dl Assessment and Plan The patient is an 86 year old female with a past medical history of hypertension , diabetes, hypothyroidism, and uterine prolapse that initially presented with weakness and fatigue and was found to have an NSTEMI, Influenza A and B, and Osteomyelitis NSTEMI/ ischemic cardiomyopathy / chronic benign HTN/new onset systolic CHF - Echo 06/28: Mild LV dysfunction. LVEF 40-45%. Inferior akinesis, severe inferolateral hypokinesis. - CT Abd/Pelvis 06/27: Extensive atherosclerotic plaque of the abdominal aorta and major branch vessels, suboptimally assessed on this non-CTA exam. 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 Severe left renal artery stenosis. - Evaluated and followed by Cardiology - Continue ASA, clopidogrel, atorvastatin - Continue metoprolol succinate and lisinopril - Recheck BMP in 1 week after discharge due to recently starting ACEi and Renal Stenosis mentioned above - Low Sodium diet on discharge due to ischemic cardiomyopathy Osteomyelitis - Continue Keflex 500mg BID 4-6 weeks - Will arrange for outpatient wound care clinic combined with ID follow-up Constipation - Had BM this morning - Continue Colace Influenza A and B - no complaints of shortness of breath at this time and saturating well on room air - Completed course of Tamiflu - Follow up chest x-ray in 4 weeks Uterine prolapse: - Patient has refused surgical intervention in the past, ongoing for many years - Consider referral to OPERATIONS OFFICER for pessary placement upon discharge Hypothyroidism - TSH 2.7 (06/03) - Continue Synthroid 50 mcg daily Diabetes mellitus - A1c of 10.2 - Metformin 500 mg BID - Continue ISS - BGS ac/hs DVT - SCD Knee - Lovenox 40mg SC daily Code Status - Level I Full Code Disposition - Working on SNF placement for Sunday Resident Tracking Resident Involvement: Resident Care Provided Care Provided: Adult [facility] Medicine Reviewed: Pt Seen/Exam by Me History Resident Physician Supervision Note: I interviewed and examined the patient. Discussed with Dr. Lozada and agree with findings and plan as documented in the note. Any exceptions or clarifications are listed here: No concerns at all, feels well. Still awaiting placement. Vitals reviewed No acute distress, alert awake oriented RRR, 2/6 systolic murmur at the left lower sternal border Lungs clear Abd +BS soft NT ND Ext 1+ pitting edema bilateral lower extremities to the knees, left second toe wound on the plantar surface is healing, no drainage or surrounding erythema Pt is an 86 yo female with a h/o DMII, uncontrolled, HTN, Hypothyroidism, here with Influenza A and B respiratory illness, NSTEMI, and new onset acute systolic CHF/ischemic CM. Has been stable for quite some time now. Continues to await placement Echocardiogram with LVEF 40-45%, wall motion abnormalities present- medical management, no need for diuretics at this time -DM 2, not on long-term insulin, uncontrolled-HgbA1C >10%. Was started on Lantus 6 units at bedtime and was having low morning fasting blood sugars.- Continue metformin and titrate up to 1000 mg twice a day as tolerated, continue mealtime insulin, added Lantus 5 units subcutaneous every morning back on and now improved -continue keflex bid for 4-6 weeks and f/u with ID and Wound Care as outpt in 1 week -f/u Cardiology within 1-2 weeks for NSTEMI and new systolic CHF--> may end up needing diuretic--> recommend daily weights, Low Na+ diet added today -with severe left KRISTOPHER and moderate Right KRISTOPHER, repeated PRP after starting FLACO inhibitor and K+ normal, automotive electrical fitter 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
[2017-07-08 23:28] VITALS: BP 159/70; PULSE 102; TEMP 36.6; O2SAT 94
[2017-07-09] VITALS: O2SAT 94
[2017-07-09] MEDS: LEVOTHYROXINE 50 MCG TAB PO SCH (06:24)
[2017-07-09 06:56] VITALS: BP 155/74; PULSE 72; TEMP 36.9; O2SAT 97
[2017-07-09 08:45] VITALS: O2SAT 97
[2017-07-09] MEDS: LISINOPRIL 2.5 MG TAB PO SCH (10:12)
[2017-07-09] MEDS: BOOST GLUCOSE CONTROL PO SCH (10:17)
[2017-07-09] MEDS: DOCUSATE SODIUM 100 MG CAP PO SCH ×2 (10:18→20:00)
[2017-07-09] MEDS: ASPIRIN 81 MG ECTAB PO SCH (10:18)
[2017-07-09] MEDS: CLOPIDOGREL BISULFATE 75 MG TAB PO SCH (10:18)
[2017-07-09] MEDS: ATORVASTATIN 40 MG TAB PO SCH (10:18)
[2017-07-09] MEDS: MAGNESIUM OXIDE 400 MG TAB PO SCH (10:18)
[2017-07-09] MEDS: ENOXAPARIN 40 MG/0.4 ML SYR SQ SCH (10:18)
[2017-07-09] MEDS: METFORMIN HCL 500 MG TAB PO SCH ×2 (10:19→18:56)
[2017-07-09] MEDS: INSULIN ASPART 100 UNITS/ML 3 ML PEN SC SCH ×4 (10:20→21:42)
[2017-07-09] MEDS: INSULIN GLARGINE SOLOSTAR 100 UNITS/ML 3 ML PEN SC SCH (10:20)
[2017-07-09] MEDS: METOPROLOL SUCC 50MG EXT REL TAB PO SCH (10:21)
[2017-07-09] MEDS: CEPHALEXIN MONOHYDRATE 500 MG CAP PO SCH ×2 (10:22→20:29)
[2017-07-09] MEDS: TRIAMCINOLONE ACET 0.1% OINT 15 GM TUBE TOP SCH ×2 (10:23→20:31)
[2017-07-09 15:55] VITALS: BP 146/75; PULSE 60; TEMP 36.4; O2SAT 100
--- NOTE | 2017-07-09 17:12 | Family Medicine Progress Note ---
Progress Note Date of Service Jul 09, 2017. Subjective Pt evaluation today including: conversation w/ patient, physical exam, chart review, lab review, review of studies, conversation w/ professional benefits sales consultant, review of inpatient medication list Patient doing well this morning, denies acute overnight events. She denies fevers/chills, headaches, CP, palpitations, dyspnea, abdominal pain, or rashes. When asked about her lower extremities, she states that she always has pain in her right leg, it is not worse than usual. She is tolerating diet without nausea or vomiting, ambulating without exacerbating symptoms, and voiding and stooling appropriately. ROS is unremarkable except as noted above. Objective Vital Signs Date Time Temp Pulse Resp B/P (MAP) Pulse Ox O2 Delivery O2 Flow Rate FiO2 07/09/17 15:55 36.4 60 16 146/75 (98) 100 Room Air 07/09/17 08:45 97 Room Air 07/09/17 06:56 36.9 72 20 155/74 (101) 97 Room Air 07/09/17 00:00 94 Room Air 07/08/17 23:28 36.6 102 20 159/70 (99) 94 Room Air Physical Exam General Appearance: WD/WN, no apparent distress Eyes: normal inspection ENT: hearing grossly normal, pharynx normal Neck: supple Respiratory/Chest: lungs clear, normal breath sounds, no respiratory distress, no accessory muscle use Cardiovascular: regular rate, rhythm, no murmur Abdomen: normal bowel sounds, non tender, soft Extremities: + calf tenderness (on left, worse today than previous), + swelling Neurologic/Psychiatric: alert, normal mood/affect, oriented x 3 Skin: normal color, warm/dry, no rash, + pertinent finding (wound on left foot) Laboratory Results Results Past 24 Hours Test 07/08/17 20:19 07/09/17 07:24 07/09/17 11:24 07/09/17 12:17 Range/Units Bedside Glucose 181 140 323 247 70-90 mg/dl Assessment and Plan 86 year old female with a past medical history of hypertension, diabetes, hypothyroidism, and uterine prolapse that initially presented with weakness and fatigue and was found to have an NSTEMI, Influenza A and B, and Osteomyelitis NSTEMI/ ischemic cardiomyopathy / chronic benign HTN/new onset systolic CHF Echo 06/28: Mild LV dysfunction. LVEF 40-45%. Inferior akinesis, severe inferolateral hypokinesis. CT Abd/Pelvis 06/27: extensive atherosclerotic plaque of the abdominal aorta and major branch vessels. 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 Severe left renal artery stenosis. Evaluated and followed by Cardiology - Continue ASA, clopidogrel, atorvastatin - Continue metoprolol succinate and lisinopril - Recheck BMP in 1 week after discharge due to recently starting ACEi and renal stenosis mentioned above - Low sodium diet on discharge due to ischemic cardiomyopathy Osteomyelitis - Continue Keflex 500mg BID 4-6 weeks - Will arrange for outpatient wound care clinic combined with ID follow-up Left leg pain - seems chronic in nature, although tenderness seems worse today - Check left lower extremity Doppler U/S Constipation - Having BM daily - Continue Colace Influenza A and B - no complaints of shortness of breath at this time and saturating well on room air - Completed course of Tamiflu - Follow up chest x-ray in 4 weeks Uterine prolapse: - Patient has refused surgical intervention in the past, ongoing for many years - Consider referral to CAMPGROUND CARETAKER for pessary placement upon discharge Hypothyroidism - TSH 2.7 (06/03) - Continue Synthroid 50 mcg daily Diabetes mellitus - A1c of 10.2 - Lantus 5units SC qAM - Metformin 500 mg BID - Continue ISS - BGS ac/hs DVT - SCD Knee - Lovenox 40mg SC daily Code Status - Level I Full Code Disposition - Awaiting on SNF placement Resident Physician Supervision Note: I interviewed and examined the patient. Discussed with Dr. Medrano and agree with findings and plan as documented in the note. Any exceptions or clarifications are listed here: None Documented By: Winston Forte feeling ok leg does hurt L worse than R but notes that's always ongoing thing no other new complaints vitals noted nad breathing unlabored, chronic venous stasis changes calf tenderness L > R but she notes is chronic flu x 2 (A&B) and NSTEMI likely related to flu -stable, awaiting SNF Continued [facility] stay due to: home environment unsafe for pt Discharge planning: alf facility Resident Tracking Resident Involvement: Resident Care Provided Care Provided: Adult Hospital Medicine
--- NOTE | 2017-07-09 17:58 | DIAGNOSTIC IMAGING REPORT ---
L VENOUS DOPP LOWER EXT UNILAT HISTORY: 86 years-old Female Pain in left calf acute left calf pain COMPARISON: Duplex venous Doppler study 07/01/2017 TECHNIQUE: Multiple real-time significant images of the deep venous structures in the left lower extremity were obtained assessing grayscale appearance, color and spectral flow. FINDINGS: There is normal flow, compressibility, phasicity and augmentation of the left lower extremity deep venous structures. IMPRESSION: No sonographic evidence of deep venous thrombosis. The above report was generated using voice recognition software. It may contain grammatical, syntax or spelling errors. Electronically signed by: Aldo Mukherjee M.D. 07/09/2017 5:56 PM Dictated Date/Time: 07/09/2017 5:54 PM
[2017-07-10 01:11] VITALS: BP 122/73; PULSE 64; TEMP 36.7; O2SAT 94
[2017-07-10] MEDS: LEVOTHYROXINE 50 MCG TAB PO SCH (05:29)
[2017-07-10 07:27] VITALS: BP 144/65; PULSE 59; TEMP 36.8; O2SAT 99
[2017-07-10 07:31] LABS: HEMATOCRIT 29.3 % (37-47); HEMOGLOBIN 9.7 g/dL (12.0-16.0); MEAN CELL VOLUME 93.6 fL (80-100); MEAN CORPUSCULAR HGB CONC 33.1 g/dl (32-36); MEAN PLATELET VOLUME 9.6 fL (7.4-10.4); PLATELET COUNT 193 K/uL (130-400); RED CELL DISTRIBUTION WIDTH CV 13.7 % (11.5-14.5); RED CELL DISTRIBUTION WIDTH SD 46.7 fL (36.4-46.3)
[2017-07-10] MEDS: METFORMIN HCL 500 MG TAB PO SCH (08:56)
[2017-07-10] MEDS: CLOPIDOGREL BISULFATE 75 MG TAB PO SCH (08:56)
[2017-07-10] MEDS: ASPIRIN 81 MG ECTAB PO SCH (08:56)
[2017-07-10] MEDS: LISINOPRIL 2.5 MG TAB PO SCH (08:56)
[2017-07-10] MEDS: ATORVASTATIN 40 MG TAB PO SCH (08:56)
[2017-07-10] MEDS: CEPHALEXIN MONOHYDRATE 500 MG CAP PO SCH (08:57)
[2017-07-10] MEDS: DOCUSATE SODIUM 100 MG CAP PO SCH (08:57)
[2017-07-10] MEDS: METOPROLOL SUCC 50MG EXT REL TAB PO SCH (08:57)
[2017-07-10] MEDS: MAGNESIUM OXIDE 400 MG TAB PO SCH (08:58)
[2017-07-10] MEDS: ENOXAPARIN 40 MG/0.4 ML SYR SQ SCH (08:58)
[2017-07-10] MEDS: TRIAMCINOLONE ACET 0.1% OINT 15 GM TUBE TOP SCH (08:59)
[2017-07-10] MEDS: INSULIN ASPART 100 UNITS/ML 3 ML PEN SC SCH ×2 (09:04→13:12)
[2017-07-10] MEDS: INSULIN GLARGINE SOLOSTAR 100 UNITS/ML 3 ML PEN SC SCH (09:05)
[2017-07-10] MEDS: BOOST GLUCOSE CONTROL PO SCH (09:05)
--- NOTE | 2017-07-10 12:27 | Clinical Documentation Query ---
CLINICAL DOCUMENTATION QUERY Daily progress notes have been stating, "NSTEMI/ ischemic cardiomyopathy / chronic benign HTN/new onset systolic CHF." In your clinical opinion is this patient being managed for: ( ) Acute systolic CHF in setting of NSTEMI, HTN, and ischemic cardiomyopathy IV Lasix ( ) Not Agree ( x ) Other explanation of clinical findings (Please Explain) NSTEMI on bkgd of ischemic cardiomyopathy as per elevated trops and ekg changes without chest pain. Lasix ordered by ED doc for mild pulm congestion and pleural effusions secondary to flu. ( ) Unable to determine (Please Define) ( ) Need to Discuss The medical record reflects the following clinical findings, treatment, and risk factors. Clinical Indicators: As above. Treatment: IV Lasix Risk Factors: Age, infection, NSTEMI, HTN, and ischemic cardiomyopathy Please clarify and document your clinical opinion in the progress notes and discharge summary. Terms such as "probable", "suspected", "likely", "questionable", "possible", or "still to be ruled out" are acceptable. IF IN AGREEMENT, YOU MUST DOCUMENT ABOVE DIAGNOSTIC STATEMENT IN DAILY PROGRESS NOTES AND DISCHARGE SUMMARY. This document is not part of the patient's record. Thank You, Barber Mcbride, CHARISSE [phone]
[2017-07-10 12:28] VITALS: BP 144/65; PULSE 59; TEMP 36.8; O2SAT 99
--- NOTE | 2017-07-10 12:28 | Clinical Documentation Query ---
CLINICAL DOCUMENTATION QUERY Daily progress notes have been stating, "NSTEMI/ ischemic cardiomyopathy / chronic benign HTN/new onset systolic CHF." In your clinical opinion is this patient being managed for: ( ) Acute systolic CHF in setting of NSTEMI, HTN, and ischemic cardiomyopathy IV Lasix ( ) Not Agree ( ) Other explanation of clinical findings (Please Explain) ( ) Unable to determine (Please Define) ( ) Need to Discuss The medical record reflects the following clinical findings, treatment, and risk factors. Clinical Indicators: As above. Treatment: IV Lasix Risk Factors: Age, infection, NSTEMI, HTN, and ischemic cardiomyopathy Please clarify and document your clinical opinion in the progress notes and discharge summary. Terms such as "probable", "suspected", "likely", "questionable", "possible", or "still to be ruled out" are acceptable. IF IN AGREEMENT, YOU MUST DOCUMENT ABOVE DIAGNOSTIC STATEMENT IN DAILY PROGRESS NOTES AND DISCHARGE SUMMARY. This document is not part of the patient's record. Thank You, Barber Mcbride, CHARISSE [phone]
[2017-07-10] MEDS ORDERED: NTRSLP4 SL (14:03)
[2017-07-10] MEDS ORDERED: PLV75 PO (14:03)
[2017-07-10] MEDS ORDERED: KFL500 PO (14:03)
[2017-07-10] MEDS ORDERED: TPRSR50 PO (14:03)
[2017-07-10] MEDS ORDERED: ASPEC81 PO (14:03)
[2017-07-10] MEDS ORDERED: LSN25 PO (14:03)
[2017-07-10] MEDS ORDERED: INSDGIPEN SC (14:03)
[2017-07-10] MEDS ORDERED: NUTR-7 PO (14:03)
[2017-07-10] MEDS ORDERED: LPT40 PO (14:03)
--- NOTE | 2017-07-10 14:15 | Discharge Instructions ---
Discharge Instructions Date of Service Jul 10, 2017. Admission Reason for Admission: Influenza A, Influenza B, Nstemi Discharge Discharge Diagnosis / Problem: NSTEMI, Influenza, osteomyelitis Discharge Goals Goal(s): Decrease discomfort, Improve function Activity Recommendations Activity Limitations: per Instructions/Follow-up section . Instructions / Follow-Up Instructions / Follow-Up 86 year old female with a past medical history of hypertension, diabetes, hypothyroidism, and uterine prolapse that initially presented with weakness and fatigue and was found to have an NSTEMI, Influenza A and B, and Osteomyelitis. Recommendations: NSTEMI/ ischemic cardiomyopathy / chronic benign HTN/new onset systolic CHF - Continue Aspirin 81 mg daily and clopidogrel 75 mg daily for an year, atorvastatin 40 mg daily - Continue metoprolol succinate and lisinopril 2.5 mg daily - Recheck BMP in 1 week after discharge due to recently starting ACEi and renal stenosis - Low sodium diet on discharge due to ischemic cardiomyopathy - Follow up with cardiology in about 2 weeks Osteomyelitis - Continue Keflex 500mg BID 4-6 weeks -Please follow up with outpatient wound care clinic combined with ID follow-up Constipation - Continue Colace Influenza A and B - completed course of tamiflu - Follow up chest x-ray in 4 weeks Uterine prolapse: - Patient has refused surgical intervention in the past, ongoing for many years - Follow up with ART PSYCHOTHERAPIST for pessary placement Hypothyroidism - TSH 2.7 (06/03) - Continue Synthroid 50 mcg daily Diabetes mellitus - A1c of 10.2 - Lantus 5units SC qAM with insulin sliding scale - Metformin 500 mg BID, which can be titrated up - Check BGS after meals and at bedtime - Please follow up with Wound clinic and infectious disease in 2 weeks - Follow up with Gynecology for pessary placement - Follow up with cardiology in about 2 weeks Current Hospital Diet Patient's current hospital diet: Diabetes Type 2 Diet, Low Sodium Diet (2gm Na) Discharge Diet Recommended Diet: AHA Diet (Heart Healthy), Diabetes Type 2 Diet Pending Studies Studies pending at discharge: no Laboratory Results Hemoglobin A1c Test 06/29/17 05:49 Range/Units Estimated Average Glucose 246 mg/dl Hemoglobin A1c 10.2 H 4.5-5.6 % Lipid Panel Test 06/28/17 05:57 Range/Units Triglycerides Level 54 0-150 mg/dl Cholesterol Level 121 0-200 mg/dl HDL Cholesterol 45 mg/dl Cholesterol/HDL Ratio 2.7 LDL Cholesterol, Calculated 65 mg/dl Medical Emergencies . Who to Call and When: Medical Emergencies: If at any time you feel your situation is an emergency, please call 911 immediately. . Non-Emergent Contact Non-Emergency issues call your: Primary Care Provider . . "Provider Documentation" section prepared by Susan Mota. . VTE Core Measure Inpt VTE Proph given/why not?: Unfractionated heparin SQ Resident Tracking Resident Involvement: Resident Care Provided Care Provided: Adult Hospital Medicine
[2017-07-10] MEDS ORDERED: NVLGIPEN SC (14:19)
--- NOTE | 2017-07-10 17:39 | Discharge Summary ---
Discharge Summary Date of Service Jul 10, 2017. Discharge Summary Admission Date: Jun 27, 2017 at 22:45 Discharge Date: Jul 10, 2017 Discharge Disposition: senior care facility Principal Diagnosis: Influenza A and B, NSTEMI with ischemic cardiomyopathy Problems/Secondary Diagnoses: Chronic osteomyelitis Immunizations: Have You Had Influenza Vaccine: Unknown History of Tetanus Vaccine?: Unknown History of Pneumococcal: Unknown History of Hepatitis B Vaccine: Unknown Medication Reconciliation New Medications: Aspirin (Aspirin EC Low Dose) 81 Mg Ectab 81 MG PO QAM for 30 Days Atorvastatin (Lipitor) 40 Mg Tab 40 MG PO QAM for 30 Days, TAB Cephalexin Monohydrate (Cephalexin) 500 Mg Cap 500 MG PO BID for 60 Days, CAP Clopidogrel Bisulfate (Clopidogrel) 75 Mg Tab 75 MG PO QAM for 30 Days, TAB Insulin Aspart (Novolog Flexpen) 100 Units/Ml Inj 0 UNITS SC ACHS for 30 Days Insulin Glargine (Lantus Solostar) 100 Unit/Ml Inj 5 UNITS SC QAM for 30 Days Lisinopril (Lisinopril) 2.5 Mg Tab 5 MG PO QAM for 30 Days, TAB Metoprolol Succinate (Metoprolol Succinate ER) 50 Mg Tabcr 100 MG PO QAM for 30 Days Nitroglycerin (Nitrostat) 0.4 Mg/1 Tab Subl 0.4 MG SL Q5M PRN for Chest Pain for 15 Days Nutritional Supplements (Boost) 1 Liq Liq 1 CAN PO DAILY for 30 Days Continued Medications: Levothyroxine Sodium (Levothyroxine Sodium) 50 Mcg Tab 1 TAB PO QAM Metformin Hcl (Glucophage) 500 Mg Tab 500 MG PO BID, TAB Triamcinolone Acet (Triamcinolone Acetonide) 45 Appln/15 Gm Oint 1 APPLN TOP BID for 30 Days, #454 GM Discontinued Medications: Amoxicillin (Amoxil) 500 Mg Cap 500 MG PO TID, #30 CAP Atenolol (Tenormin) 50 Mg Tab 25 MG PO BID, TAB Sulfa/Trimethoprim (Bactrim Ds 800MG/160MG) Tab 1 TAB PO BID for 10 Days, #20 TAB Discharge Exam Patient doing well, denies acute overnight events. She denies fevers/chills, headaches, CP, palpitations, dyspnea, abdominal pain, or rashes. When asked about her lower extremities, she states that she always has pain in her right leg, it is not worse than usual. She is tolerating diet without nausea or vomiting, ambulating with her walker without exacerbating symptoms, and voiding and stooling appropriately. ROS is unremarkable except as noted above. Physical Exam General Appearance: WD/WN, no apparent distress Eyes: normal inspection ENT: hearing grossly normal, pharynx normal Neck: supple Respiratory/Chest: lungs clear, normal breath sounds, no respiratory distress, no accessory muscle use Cardiovascular: regular rate, rhythm, no murmur Abdomen: normal bowel sounds, non tender, soft Extremities: + calf tenderness (on left, worse today than previous), + swelling Neurologic/Psychiatric: alert, normal mood/affect, oriented x 3 Skin: normal color, warm/dry, no rash, + pertinent finding (wound on left foot) Hospital Course 86 year old female with a past medical history of hypertension, diabetes, hypothyroidism, and uterine prolapse that initially presented with weakness and fatigue and was found to have an NSTEMI, Influenza A and B, and Osteomyelitis. Recommendations: NSTEMI/ ischemic cardiomyopathy / chronic benign HTN/new onset systolic CHF - Continue Aspirin 81 mg daily and clopidogrel 75 mg daily for an year, atorvastatin 40 mg daily - Continue metoprolol succinate and lisinopril 2.5 mg daily - Recheck BMP in 1 week after discharge due to recently starting ACEi and renal stenosis - Low sodium diet on discharge due to ischemic cardiomyopathy - Follow up with cardiology in about 2 weeks Osteomyelitis - Continue Keflex 500mg BID 4-6 weeks - Please follow up with outpatient wound care clinic combined with ID follow-up in next 1-2 weeks Constipation - Continue Colace Influenza A and B - completed course of tamiflu - Follow up chest x-ray in 4 weeks Uterine prolapse: - Patient has refused surgical intervention in the past, ongoing for many years - Follow up with DUMPER OPERATOR for pessary placement Hypothyroidism - TSH 2.7 (06/03) - Continue Synthroid 50 mcg daily Diabetes mellitus - A1c of 10.2 - Lantus 5units SC qAM with insulin sliding scale - Metformin 500 mg BID, which can be titrated up - Check BGS after meals and at bedtime - Please follow up with Wound clinic and infectious disease in 2 weeks - Follow up with Gynecology for pessary placement - Follow up with cardiology in about 2 weeks Resident Physician Supervision Note: I interviewed and examined the patient. Discussed with Dr. Medrano and agree with findings and plan as documented in the note. Any exceptions or clarifications are listed here: None Documented By: Winston Forte feeling better finally approved for SNF! vitals noted nad breathing unlabored no pallor or icterus flu x2 (A&B) - improved NSTEMI provoking acute systolic CHF in the setting of HTN and ischemic cardiomyopathy - initially treated w IV lasix, seen by cardiology and deemed most appropriate for med managemetn - ongoing med management, stable for SNF Total Time Spent: Less than 30 minutes This includes examination of the patient, discharge planning, medication reconciliation, and communication with other providers. Discharge Instructions Please refer to the electronic Patient Visit Report (Discharge Instructions) for additional information. Additional Copies To Margarita Villegas C.R.N.P. Resident Tracking Resident Involvement: Resident Care Provided Care Provided: Adult [facility]
== END 2017-07-10 14:35 | DRG 280 ==
LOC: C.EDB 16:05 → C.2E 22:45 → UNDOADMIN 22:45 → ENRESERV 22:54 → C.4E 06-30 17:29 → C.MS4W 07-08 11:49
PROVIDERS: ADMIT Student in an Organized Health Care Education/Training Program; ATTEND Family Medicine
DX: I21.4 Non-ST elevation (NSTEMI) myocardial infarction (principal); J96.01 Acute respiratory failure with hypoxia; I50.21 Acute systolic (congestive) heart failure; M86.68 Other chronic osteomyelitis, other site; J10.1 Influenza due to other identified influenza virus with other respiratory manifestations; I11.0 Hypertensive heart disease with heart failure; E78.5 Hyperlipidemia, unspecified; E03.9 Hypothyroidism, unspecified; E11.621 Type 2 diabetes mellitus with foot ulcer; L97.529 Non-pressure chronic ulcer of other part of left foot with unspecified severity; B95.61 Methicillin susceptible Staphylococcus aureus infection as the cause of diseases classified elsewhere; N81.4 Uterovaginal prolapse, unspecified; E11.69 Type 2 diabetes mellitus with other specified complication; K59.00 Constipation, unspecified; Z79.84 Long term (current) use of oral hypoglycemic drugs; Z79.899 Other long term (current) drug therapy

== ENCOUNTER → 2017-07-30 | Outpatient (CLI) | payer MEDICARE ==
[~2017-07-30] MED LIST changes: -AMOX500C3 PO; +ASPEC81 PO; -ATEN50TA PO; +INSDGIPEN SC; +KFL500 PO; +LPT40 PO; +LSN25 PO; +NTRSLP4 SL; +NUTR-7 PO; +NVLGIPEN SC; +PLV75 PO; -SULF800T23 PO; +TPRSR50 PO
[2017-07-30 08:22] LABS: BASO % 0.2 %; BASO ABS # 0.01 K/uL (0-0.2); EOS ABS # 0.05 K/uL (0-0.5); HEMATOCRIT 33.9 % (37-47); HEMOGLOBIN 11.8 g/dL (12.0-16.0); IG# 0.02 K/uL (0.00-0.02); LYMPH % 29.6 %; LYMPH ABS # 1.42 K/uL (1.2-3.4); MEAN CELL VOLUME 90.6 fL (80-100); MEAN CORPUSCULAR HEMOGLOBIN 31.6 pg (25-34); MEAN CORPUSCULAR HGB CONC 34.8 g/dl (32-36); MEAN PLATELET VOLUME 10.8 fL (7.4-10.4); MONO % 12.7 %; MONO ABS # 0.61 K/uL (0.11-0.59); NEUT % 56.1 %; NEUT ABS # 2.68 K/uL (1.4-6.5); PLATELET COUNT 170 K/uL (130-400); RED CELL DISTRIBUTION WIDTH CV 13.4 % (11.5-14.5); RED CELL DISTRIBUTION WIDTH SD 44.1 fL (36.4-46.3); WHITE BLOOD COUNT 4.79 K/uL (4.8-10.8)
[2017-07-30 08:29] LABS: ALT/SGPT 21 U/L (12-78); BLOOD UREA NITROGEN 29 mg/dl (7-18); CALCIUM 8.8 mg/dl (8.5-10.1); CARBON DIOXIDE 25 mmol/L (21-32); CREATININE 0.86 mg/dl (0.60-1.20); GLUCOSE 113 mg/dl (70-99); POTASSIUM 3.9 mmol/L (3.5-5.1); SODIUM 139 mmol/L (136-145)
[2017-07-30 08:39] LABS: ALKALINE PHOSPHATASE 70 U/L (45-117); AST/SGOT 22 U/L (15-37); TOTAL PROTEIN 6.8 gm/dl (6.4-8.2)
== END ==
LOC: C.LABUPNIT 07:47
PROVIDERS: ATTEND Nurse Practitioner Family
DX: E78.5 Hyperlipidemia, unspecified (principal); I10 Essential (primary) hypertension

== ENCOUNTER → 2017-09-27 | Outpatient (CLI) | payer MEDICARE ==
[~2017-09-27] MED LIST changes: -ASPEC81 PO; +ASPI-320 PO
== END ==
LOC: C.LABUPNIT 08:37
PROVIDERS: ATTEND Nurse Practitioner Family
DX: E11.8 Type 2 diabetes mellitus with unspecified complications (principal)

== ENCOUNTER → 2017-10-03 | Outpatient (CLI) | payer MEDICARE ==
[2017-10-03 08:38] LABS: HEMATOCRIT 31.3 % (37-47); HEMOGLOBIN 10.6 g/dL (12.0-16.0); MEAN CELL VOLUME 90.7 fL (80-100); MEAN CORPUSCULAR HEMOGLOBIN 30.7 pg (25-34); MEAN CORPUSCULAR HGB CONC 33.9 g/dl (32-36); MEAN PLATELET VOLUME 10.3 fL (7.4-10.4); PLATELET COUNT 171 K/uL (130-400); RED CELL DISTRIBUTION WIDTH CV 13.4 % (11.5-14.5); RED CELL DISTRIBUTION WIDTH SD 44.3 fL (36.4-46.3); WHITE BLOOD COUNT 6.35 K/uL (4.8-10.8)
[2017-10-03 08:53] LABS: ALBUMIN 3.1 gm/dl (3.4-5.0); ALKALINE PHOSPHATASE 77 U/L (45-117); ALT/SGPT 56 U/L (12-78); AST/SGOT 43 U/L (15-37); BLOOD UREA NITROGEN 22 mg/dl (7-18); CALCIUM 8.7 mg/dl (8.5-10.1); CARBON DIOXIDE 29 mmol/L (21-32); GLUCOSE 53 mg/dl (70-99); POTASSIUM 4.4 mmol/L (3.5-5.1); SODIUM 133 mmol/L (136-145); TOTAL PROTEIN 6.5 gm/dl (6.4-8.2)
== END | disposition home or self-care (01) ==
LOC: C.LABUPNIT 08:08
PROVIDERS: ATTEND Nurse Practitioner Family
DX: E11.8 Type 2 diabetes mellitus with unspecified complications (principal); Z86.31 Personal history of diabetic foot ulcer

== ENCOUNTER → 2017-11-01 | Outpatient (CLI) | payer MEDICARE ==
[2017-11-01 08:36] LABS: HEMATOCRIT 29.3 % (37-47); HEMOGLOBIN 9.8 g/dL (12.0-16.0); MEAN CELL VOLUME 91.6 fL (80-100); MEAN CORPUSCULAR HEMOGLOBIN 30.6 pg (25-34); MEAN CORPUSCULAR HGB CONC 33.4 g/dl (32-36); MEAN PLATELET VOLUME 10.1 fL (7.4-10.4); PLATELET COUNT 206 K/uL (130-400); RED CELL DISTRIBUTION WIDTH CV 13.2 % (11.5-14.5); RED CELL DISTRIBUTION WIDTH SD 44.1 fL (36.4-46.3); WHITE BLOOD COUNT 7.81 K/uL (4.8-10.8)
[2017-11-01 08:59] LABS: ALBUMIN 3.1 gm/dl (3.4-5.0); ALT/SGPT 201 U/L (12-78); AST/SGOT 151 U/L (15-37); BLOOD UREA NITROGEN 31 mg/dl (7-18); CALCIUM 9.4 mg/dl (8.5-10.1); CARBON DIOXIDE 30 mmol/L (21-32); CREATININE 0.89 mg/dl (0.60-1.20); GLUCOSE 46 mg/dl (70-99); POTASSIUM 4.3 mmol/L (3.5-5.1); SODIUM 137 mmol/L (136-145)
[2017-11-01 09:00] LABS: ALKALINE PHOSPHATASE 200 U/L (45-117); TOTAL PROTEIN 6.5 gm/dl (6.4-8.2)
== END ==
LOC: C.LABUPNIT 08:17
PROVIDERS: ATTEND Nurse Practitioner Family
DX: M86.672 Other chronic osteomyelitis, left ankle and foot (principal); E08.9 Diabetes mellitus due to underlying condition without complications

== ENCOUNTER → 2017-11-05 | Outpatient (CLI) | payer MEDICARE ==
[2017-11-05 08:35] LABS: HEMATOCRIT 33.9 % (37-47); HEMOGLOBIN 11.6 g/dL (12.0-16.0)
[2017-11-05 08:59] LABS: ALBUMIN 3.4 gm/dl (3.4-5.0); TOTAL PROTEIN 7.6 gm/dl (6.4-8.2)
== END ==
LOC: C.LABUPNIT 08:00
PROVIDERS: ATTEND Nurse Practitioner Family
DX: D64.9 Anemia, unspecified (principal); R94.5 Abnormal results of liver function studies

== ENCOUNTER 2018-01-09 13:48 | Inpatient (IN) | payer MEDICARE, OTHER ==
[~2018-01-09] VITALS: Ht 160 cm; Wt 62.1 kg
[~2018-01-09 13:48] MED LIST changes: +ACET-1311 PO; +BISA10SU38 PR; +CALC500C3 PO; +CPR500 PO; +CRD200 PO; -GLC/500 PO; -KFL500 PO; +LCTX PO; +LISI-789 PO; +LPR25 PO; -LPT40 PO; -LSN25 PO; +MGNO400 PO; +MIRT15TA3 PO; +MIRT1TAB27; +MOML PO; +MRLP17X PO; -NUTR-7 PO; +ONDA4TAB46 PO; +PANT1TAB4 PO; -TPRSR50 PO; -TRMO115 TOP
--- NOTE | 2018-01-09 14:38 | DIAGNOSTIC IMAGING REPORT ---
CHEST ONE VIEW PORTABLE CLINICAL HISTORY: Weakness DIZZINESS COMPARISON STUDY: 11/14/2017 FINDINGS: The heart is enlarged. Since the prior study, the patient has developed moderately extensive bilateral multifocal airspace opacities. There is blunting of the left lateral costophrenic angle and there may be an associated pleural effusion.[ IMPRESSION: Interval development of multifocal airspace opacities. The findings are suspicious for a multifocal pneumonia. Clinical and radiographic follow-up is recommended Electronically signed by: Adal Sharma M.D. 01/09/2018 2:37 PM Dictated Date/Time: 01/09/2018 2:35 PM
[2018-01-09] MEDS ORDERED: [UNRECOGNIZED DRUG - CODE] TOP (14:42)
[2018-01-09] MEDS ORDERED: PRLSR20 PO (14:42)
[2018-01-09] MEDS ORDERED: DOXYCYCLINE IV 100 MG in DEXTROSE 5% 100ML 100 ML IV STA (15:10)
[2018-01-09] MEDS ORDERED: PIPERACILLIN/TAZOBACTAM 4.5 GM/100ML D5W IV STA (15:10)
--- NOTE | 2018-01-09 15:11 | DIAGNOSTIC IMAGING REPORT ---
HEAD WITHOUT CONTRAST (CT) CLINICAL HISTORY: 87 years-old Female with EVALUATE WEAKNESS. Acute weakness TECHNIQUE: Multiple axial CT images of the head were obtained without contrast. A dose lowering technique was utilized adhering to the principles of ALARA. CT DOSE: 537.48 mGy.cm COMPARISON: CT head 11/14/2017. FINDINGS: No acute intracranial hemorrhage, midline shift, intracranial mass, hydrocephalus, territorial ischemia or abnormal extra-axial collection. Age-related involutional changes. Senescent calcifications of the right lentiform nucleus. Ill-defined low-attenuation about the white matter redemonstrated suggesting chronic microvascular ischemic changes. Cerebral vascular calcifications are noted. The calvarium is intact. Trace right mastoid effusion. Left mastoid air cells are clear. Mild to moderate mucosal thickening of the left sphenoid sinus. Mild mucosal thickening of the ethmoid air cells. The soft tissues and orbits are unremarkable. IMPRESSION: No acute intracranial abnormality. The above report was generated using voice recognition software. It may contain grammatical, syntax or spelling errors. Electronically signed by: Aldo Mukherjee M.D. 01/09/2018 3:10 PM Dictated Date/Time: 01/09/2018 3:08 PM
[2018-01-09 15:42] LABS: BASO % 0.1 %; BASO ABS # 0.01 K/uL (0-0.2); EOS % 0.7 %; EOS ABS # 0.06 K/uL (0-0.5); HEMATOCRIT 30.4 % (37-47); HEMOGLOBIN 9.8 g/dL (12.0-16.0); IG# 0.05 K/uL (0.00-0.02); LYMPH % 8.5 %; MEAN CELL VOLUME 90.2 fL (80-100); MEAN CORPUSCULAR HEMOGLOBIN 29.1 pg (25-34); MEAN CORPUSCULAR HGB CONC 32.2 g/dl (32-36); MEAN PLATELET VOLUME 8.8 fL (7.4-10.4); MONO % 8.1 %; MONO ABS # 0.67 K/uL (0.11-0.59); NEUT ABS # 6.74 K/uL (1.4-6.5); PLATELET COUNT 353 K/uL (130-400); RED CELL DISTRIBUTION WIDTH CV 15.1 % (11.5-14.5); RED CELL DISTRIBUTION WIDTH SD 49.3 fL (36.4-46.3); WHITE BLOOD COUNT 8.23 K/uL (4.8-10.8)
[2018-01-09 15:52] LABS: INR 1.1 (0.9-1.1)
[2018-01-09] MEDS ORDERED: OPTIRAY 320 IV PRN (16:00)
[2018-01-09 16:05] VITALS: O2SAT 94; Ht 160 cm; Wt 62.1 kg
[2018-01-09 16:15] LABS: ALBUMIN 2.1 gm/dl (3.4-5.0); CALCIUM 7.9 mg/dl (8.5-10.1); CREATININE 1.45 mg/dl (0.60-1.20); POTASSIUM 4.6 mmol/L (3.5-5.1); TOTAL PROTEIN 6.6 gm/dl (6.4-8.2)
--- NOTE | 2018-01-09 16:21 | History and Physical ---
History & Physical Date & Time of Service: Jan 09, 2018 at 16:21 Chief Complaint: Dizziness Primary Care Physician: Hemal Allred History of Present Illness This is an 87 y/o female with a history of CAD, NSTEMI, HTN, HLD, DM II, depression, and hypothyroidism who presented to the ED on 01/09 due to hypoxia. Patient reports feeling her usual state of health up until 10 days ago. Her first Symptom was dizziness, and this was mainly occuring with change of positioning, mainly orthostatic,. During this time she states she has had low energy, had been sleeping more., and fatigued. For past 2 days. her daughter notices that she becomes tachypneic when she tries to get up from a seated position. Yesterday at supper. while at the correction, the staff noticed that he oxygen was low. Saturating around the 80s. But it perked up with oxygen. Patient then came to ER today for evaluation. Given her lack of cough, fever, chills, ER was concerned over possible Pulmonary Emboli. Daughter however refused study as she did not want her mother to get contrast as this "may worsened her blood sugars" However, patient had a chest x-ray which showed signs of possible multilobar pneumonia. Admission was called. Past Medical/Surgical History Medical Problems: (1) Altered mental status (2) Anemia (3) Benign hypertension (4) Congestive heart failure (CHF) (5) Diabetes mellitus (6) Elevated troponin (7) Hyperlipidemia (8) Hypomagnesemia (9) Hypothyroidism (10) Influenza (11) Influenza A (12) Influenza B (13) Ischemic cardiomyopathy (14) NSTEMI (non-ST elevated myocardial infarction) (15) NSTEMI (non-ST elevated myocardial infarction) (16) Osteomyelitis (17) Palliative care encounter (18) PVC (premature ventricular contraction) (19) Sepsis (20) UTI (urinary tract infection) Family History No pertinent family history Social History Smoking Status: Never Smoker Drug Use: none Marital Status: Housing status: correction Occupational Status: retired Immunizations History of Influenza Vaccine: Unknown History of Tetanus Vaccine?: Unknown History of Pneumococcal: Unknown History of Hepatitis B Vaccine: Unknown Allergies Coded Allergies: No Known Allergies (Unverified , 01/09/18) Home Medications Scheduled Acetaminophen (Tylenol), 650 MG PO Q8 Amiodarone HCl (Amiodarone HCl), 200 MG PO BID Aspirin (Aspirin EC Low Dose), 81 MG PO QAM Clopidogrel Bisulfate (Clopidogrel), 75 MG PO QAM Dimethicone (Topical) (Remedy Dimethicone Moistu), 1 APPLN TOP BID Insulin Aspart (Novolog Flexpen), 0 UNITS SC ACHS Lactobacillus Acidophilus (Lactinex), 1 TAB PO DAILY Levothyroxine Sodium (Levothyroxine Sodium), 50 MCG PO QAM Lisinopril (Zestril), 2.5 MG PO DAILY Magnesium Oxide (Magnesium-Oxide), 400 MG PO BID Metoprolol Tartrate (Lopressor), 75 MG PO BID Omeprazole (Prilosec), 20 MG PO DAILY Scheduled PRN Calcium Carbonate (Tums), 500 MG PO HS PRN for Dyspepsia Nitroglycerin (Nitrostat), 0.4 MG SL Q5M PRN for Chest Pain Ondansetron Hcl (Zofran), 4 MG PO Q6 PRN for Nausea Miscellaneous Medications Mirtazapine (Mirtazapine) Review of Systems Constitutional: No fever, No chills Eyes: No worsening of vision ENT: + hearing loss (chronic) Respiratory: No cough, No sputum Cardiovascular: No chest pain Abdomen: No pain Musculoskeletal: No muscle pain Neurologic: No memory loss Psychiatric: No depression symptoms Endocrine: + fatigue (as noted above) Hematologic / Lymphatic: No abnormal bleeding/bruising Integumentary: No rash Allergic / Immunologic: No environmental allergies Physical Exam Vital Signs Date Time Temp Pulse Resp B/P (MAP) Pulse Ox O2 Delivery O2 Flow Rate FiO2 01/09/18 15:54 49 16 141/58 94 Nasal Cannula 2.0 01/09/18 14:37 47 16 147/58 97 Nasal Cannula 2.0 01/09/18 14:30 48 16 134/62 98 Nasal Cannula 2.0 01/09/18 14:28 48 16 134/62 98 Nasal Cannula 2.0 47 163/63 51 151/67 01/09/18 14:25 98 Nasal Cannula 2.0 01/09/18 14:25 98 Nasal Cannula 2.0 01/09/18 14:03 36.9 47 16 153/57 85 Room Air 01/09/18 13:57 48 General Appearance: WD/WN, no apparent distress Head: normocephalic Eyes: normal inspection ENT: normal ENT inspection Neck: supple Respiratory/Chest: chest non-tender, no respiratory distress, no accessory muscle use, + pertinent finding (rhonchi in left lower lobe) Cardiovascular: regular rate, rhythm, + pertinent finding (pedal edema) Abdomen/GI: normal bowel sounds, non tender, soft Back: no CVA tenderness Extremities/Musculoskelatal: no calf tenderness, normal capillary refill, + pedal edema Neurologic/Psych: alert (oriented x2 to place and person) Skin: normal color Lymphatic: no adenopathy Diagnostics Laboratory Results Results Past 24 Hours Test 01/09/18 15:23 01/09/18 15:35 Range/Units White Blood Count 8.23 4.8-10.8 K/uL Red Blood Count 3.37 4.2-5.4 M/uL Hemoglobin 9.8 12.0-16.0 g/dL Hematocrit 30.4 37-47 % Mean Corpuscular Volume 90.2 80-100 fL Mean Corpuscular Hemoglobin 29.1 25-34 pg Mean Corpuscular Hemoglobin Concent 32.2 32-36 g/dl Platelet Count 353 130-400 K/uL Mean Platelet Volume 8.8 7.4-10.4 fL Neutrophils (%) (Auto) 82.0 % Lymphocytes (%) (Auto) 8.5 % Monocytes (%) (Auto) 8.1 % Eosinophils (%) (Auto) 0.7 % Basophils (%) (Auto) 0.1 % Neutrophils # (Auto) 6.74 1.4-6.5 K/uL Lymphocytes # (Auto) 0.70 1.2-3.4 K/uL Monocytes # (Auto) 0.67 0.11-0.59 K/uL Eosinophils # (Auto) 0.06 0-0.5 K/uL Basophils # (Auto) 0.01 0-0.2 K/uL RDW Standard Deviation 49.3 36.4-46.3 fL RDW Coefficient of Variation 15.1 11.5-14.5 % Immature Granulocyte % (Auto) 0.6 % Immature Granulocyte # (Auto) 0.05 0.00-0.02 K/uL Prothrombin Time 11.5 9.0-12.0 SECONDS Prothromb Time International Ratio 1.1 0.9-1.1 Activated Partial Thromboplast Time 24.0 21.0-31.0 SECONDS Partial Thromboplastin Ratio 0.9 Sodium Level 135 136-145 mmol/L Potassium Level 4.6 3.5-5.1 mmol/L Chloride Level 102 98-107 mmol/L Carbon Dioxide Level 25 21-32 mmol/L Anion Gap 8.0 3-11 mmol/L Blood Urea Nitrogen 27 7-18 mg/dl Creatinine 1.45 0.60-1.20 mg/dl Est Creatinine Clear Calc Drug Dose 21.7 ml/min Estimated GFR () 36.9 Estimated GFR (Non- 31.8 BUN/Creatinine Ratio 18.4 10-20 Random Glucose 128 70-99 mg/dl Calcium Level 7.9 8.5-10.1 mg/dl Magnesium Level 2.3 1.8-2.4 mg/dl Total Bilirubin 0.4 0.2-1 mg/dl Direct Bilirubin 0.2 0-0.2 mg/dl Aspartate Amino Transf (AST/SGOT) 25 15-37 U/L Alanine Aminotransferase (ALT/SGPT) 28 12-78 U/L Alkaline Phosphatase 86 45-117 U/L Troponin I 0.018 0-0.045 ng/ml Pro-B-Type Natriuretic Peptide 34596 0-1800 pg/ml Total Protein 6.6 6.4-8.2 gm/dl Albumin 2.1 3.4-5.0 gm/dl Lipase 66 73-393 U/L Thyroid Stimulating Hormone (TSH) 4.940 0.300-4.500 uIu/ml Urine Color YELLOW Urine Appearance CLEAR CLEAR Urine pH 5.0 4.5-7.5 Urine Specific Mary [place] 1.017 1.000-1.030 Urine Protein 1+ NEG Urine Glucose (UA) NEG NEG Urine Ketones NEG NEG Urine Occult Blood NEG NEG Urine Nitrite NEG NEG Urine Bilirubin NEG NEG Urine Urobilinogen NEG NEG Urine Leukocyte Esterase TRACE NEG Urine WBC (Auto) 1-5 0-5 /hpf Urine RBC (Auto) 0-4 0-4 /hpf Urine Hyaline Casts (Auto) 1-5 0-5 /lpf Urine Epithelial Cells (Auto) 5-10 0-5 /lpf Urine Bacteria (Auto) NEG NEG Microbiology Results 01/09/18 Blood Culture, Received Pending 01/09/18 Blood Culture, Received Pending 01/09/18 Urine Culture, Received Pending Diagnostic Radiology CHEST ONE VIEW PORTABLE CLINICAL HISTORY: Weakness DIZZINESS COMPARISON STUDY: 11/14/2017 FINDINGS: The heart is enlarged. Since the prior study, the patient has developed moderately extensive bilateral multifocal airspace opacities. There is blunting of the left lateral costophrenic angle and there may be an associated pleural effusion.[ IMPRESSION: Interval development of multifocal airspace opacities. The findings are suspicious for a multifocal pneumonia. Clinical and radiographic follow-up is recommended EKG Sinus bradycardia with 1st degree A-V block Nonspecific ST and T wave abnormality Prolonged QT Abnormal ECG When compared with ECG of 09-JAN-2018 14:01, (unconfirmed) Nonspecific T wave abnormality, improved in Lateral leads QT has lengthened Confirmed by KATIE WHARTON ([id number]) on 01/09/2018 4:48:09 PM Impression Assessment and Plan Hypoxia in a 87 yo female with multifocal opacities in a chest x-ray and recent hospital stay with antibiotic use within the past 90 days. Likely secondary to hospital acquired pneumonia. Will place patient on zosyn azactam and vanco for pseudomonas and MRSA coverage. Given that patient had kimmie hospitalized and was on antibiotics in past 90 days. Understand that patient will be on both azactam and vanco but do not want to place patient on genta due to nephrotoxicity, nor Fluoroquinolone due to prolonged Qtc. Patient will be placed on neb treatment PRN and streoids IV. Will consider I consult in AM. will also check troponin. Mild acute kidney injury on CKD stage IIIb -Baseline creatinine around 0.9 -Creatinine 1.45 on admission -Hold lisinopril -Patient has a diet. -will recheck inn AM. If creatinine is not improving, will start IVF. CAD, h/o NSTEMI, HTN, HLD--BP now stable -Continue ASA, Plavix, Lopressor 50 mg PO BID -Lisinopril held as above DM II--last HgbA1c 7.0 on 09/27/17 will recheck in AM -Hold metformin -Continue Lantus SC qd -Insulin sliding scale -Check BSGs q ac and qhs -consult glycemic control Hypothyroidism -TSH WNL -Continue Synthroid 50 mcg PO qd DVT prophylaxis -Heparin 5000 units SC q12h -PANFILO dill and SCDs Code Status -Level V, Do not resuscitate Advanced Directives Existing Advance Directive: No Existing Living Will: No Existing Power of Cupola Tender: No Existing Health Care Proxy: No Resuscitation Status VTE Prophylaxis Will order VTE Prophylaxis: Yes
[2018-01-09] MEDS ORDERED: NITROGLYCERIN 0.4 MG SL PER TAB CHARGE SL PRN (16:30)
[2018-01-09] MEDS ORDERED: ONDANSETRON 4 MG TAB PO PRN (16:30)
[2018-01-09] MEDS ORDERED: CALCIUM CARBONATE 500 MG CHEWABLE PO PRN (16:30)
[2018-01-09] MEDS ORDERED: DEXTROSE 50% 50 ML SYR IV PRN ×3 (16:45→19:30)
[2018-01-09] MEDS ORDERED: GLUCAGON FOR INJ 1 MG VIAL IM PRN ×2 (16:45→19:30)
[2018-01-09] MEDS ORDERED: CARBOHYDRATES FOR HYPOGLYCEMIA PO PRN ×3 (16:45→19:30)
[2018-01-09] MEDS ORDERED: GLUCOSE 10 TABS/TUBE PO PRN ×3 (16:45→19:30)
[2018-01-09] MEDS ORDERED: GLUCOSE 40% GEL 15 GM TUBE PO PRN ×3 (16:45→19:30)
[2018-01-09] MEDS ORDERED: GLUCAGON FOR INJ 1 MG VIAL SQ PRN (17:45)
[2018-01-09] MEDS ORDERED: LEVALBUTEROL 1.25MG/0.5ML NEB INH PRN (17:45)
[2018-01-09] MEDS ORDERED: VANCOMYCIN IV 0 MG in SODIUM CHLORIDE 0.9% 500ML 500 ML IV SCH (17:45)
[2018-01-09] MEDS ORDERED: VANCOMYCIN CONSULT ACTIVE PRN (17:45)
[2018-01-09] MEDS ORDERED: VANCOMYCIN IV 1,250 MG in SODIUM CHLORIDE 0.9% 250ML 250 ML IV STA (18:25)
[2018-01-09 18:28] VITALS: BP 158/66; PULSE 48; TEMP 36.4; O2SAT 97
[2018-01-09] MEDS ORDERED: PHARMACY GLYCEMIC MGMT CONSULT PRN (18:36)
[2018-01-09] MEDS ORDERED: LEVOFLOXACIN CONSULT ACTIVE PRN (18:45)
[2018-01-09] MEDS ORDERED: METHYLPREDNISOLONE IV 60 MG in SYRINGE 0 ML IV STA (18:46)
[2018-01-09] MEDS ORDERED: LEVOFLOXACIN / D5W 750 MG in PREMIXED IN D5W 150 ML IV SCH (19:00)
[2018-01-09] MEDS ORDERED: INSULIN GLARGINE SOLOSTAR 100 UNITS/ML 3 ML PEN SC STA (19:17)
[2018-01-09] MEDS ORDERED: AZTREONAM IV 2,000 MG in DEXTROSE 5% 100ML 100 ML IV STA (19:26)
[2018-01-09] MEDS ORDERED: AZTREONAM CONSULT ACTIVE PRN (19:30)
[2018-01-09 19:31] VITALS: BP 173/71; PULSE 50; TEMP 36.9; O2SAT 97
--- NOTE | 2018-01-09 19:49 | Pharmacy Progress Note ---
Pharmacy Abx Initial Consult Date of Service Jan 09, 2018. Pharmacy Dosing Scope Date of Consult: 01/09/18 Consultation requested by: Dr. Saldaña Pharmacy is consulted to initiate Vanco/Zosyn/Aztreonam IV dosing therapy, order appropriate labs and adjust drug dose/frequency. Subjective The patient is a 87 year old female admitted on Jan 09, 2018 at 16:36. Objective Height (Feet): 5 Height (Inches): 3.00 Weight (Kilograms): 61.200 Vital Signs (Past 12Hrs) Vital Signs Past 12 Hours Date Time Temp Pulse Resp B/P (MAP) Pulse Ox O2 Delivery O2 Flow Rate FiO2 01/09/18 19:31 36.9 50 173/71 (105) 97 Nasal Cannula 2.0 01/09/18 18:28 36.4 48 22 158/66 (96) 97 Nasal Cannula 2.0 01/09/18 16:30 69 22 158/66 97 4.0 01/09/18 16:05 94 Nasal Cannula 2.0 01/09/18 15:54 49 16 141/58 94 Nasal Cannula 2.0 01/09/18 14:37 47 16 147/58 97 Nasal Cannula 2.0 01/09/18 14:30 48 16 134/62 98 Nasal Cannula 2.0 01/09/18 14:28 48 16 134/62 98 Nasal Cannula 2.0 47 163/63 51 151/67 01/09/18 14:25 98 Nasal Cannula 2.0 01/09/18 14:25 98 Nasal Cannula 2.0 01/09/18 14:03 36.9 47 16 153/57 85 Room Air 01/09/18 13:57 48 Lab Results (24Hrs) Laboratory Tests (24 Hours) Test 01/09/18 15:23 01/09/18 15:36 White Blood Count 8.23 K/uL (4.8-10.8) Red Blood Count 3.37 M/uL (4.2-5.4) L Hemoglobin 9.8 g/dL (12.0-16.0) L Hematocrit 30.4 % (37-47) L Mean Corpuscular Volume 90.2 fL (80-100) Mean Corpuscular Hemoglobin 29.1 pg (25-34) Mean Corpuscular Hemoglobin Concent 32.2 g/dl (32-36) Platelet Count 353 K/uL (130-400) Mean Platelet Volume 8.8 fL (7.4-10.4) Neutrophils (%) (Auto) 82.0 % Lymphocytes (%) (Auto) 8.5 % Monocytes (%) (Auto) 8.1 % Eosinophils (%) (Auto) 0.7 % Basophils (%) (Auto) 0.1 % Neutrophils # (Auto) 6.74 K/uL (1.4-6.5) H Lymphocytes # (Auto) 0.70 K/uL (1.2-3.4) L Monocytes # (Auto) 0.67 K/uL (0.11-0.59) H Eosinophils # (Auto) 0.06 K/uL (0-0.5) Basophils # (Auto) 0.01 K/uL (0-0.2) Procalcitonin 0.14 ng/ml (0-0.5) Micro Results Date/Time Source Procedure Growth Status 01/09/18 15:25 Blood Blood Culture Pending Received 01/09/18 15:24 Blood Blood Culture Pending Received 01/09/18 15:35 Urine,Catheterized Urine Culture Pending Received Risk Factors for Resistance * Resident in a shelter or extended-care facility Assessment & Plan Assessment Ms. Dyson is an 87yo F unbeknownst to the pharmacy kinetic service. She is currently being started on vancomycin/zosyn/aztreonam for a pulmonary source. UC /BCx2/MRSA nares all currently pending at this juncture. Current renal fxn not at baseline. Current pt population p'kinetics: t1/2=30hrs, ke=0.01992, Vd=0.7. No IVFs ordered at this time. I will order a baseline PCT and repeat PCT in an effort to help de-escalate antimicrobials Plan * Vancomycin 1250mg (20mg/kg) x1 to quickly achieve a peak, 29mcg/mL * Random lvl ordered for 01/10/18 @0444 * Goal random lvl for pulmonary source: 15-20mcg/mL * It's difficult to apply population p'kinetics to Ms. Dyson due to her age and poor renal fxn but I surmise she wont need re-dosed for another 20 hrs * Zosyn 30min infsn given in ED then EI Zosyn 3.375g IV q8, appropriate for clinical picture and eCrCl>20cc/min * Aztreonam 2g load given then 1g IV q8, appropriate for renal fxn Pharmacy will continue to follow and will adjust dose/frequency as necessary. Thank you.
[2018-01-09 19:53] VITALS: BP 138/54
[2018-01-09 20:00] VITALS: O2SAT 98
--- NOTE | 2018-01-09 20:16 | EMERGENCY ROOM VISIT NOTE ---
History Report prepared by Savi: Lisa Liz Under the Supervision of: Dr. Benjamin Velasquez M.D. First contact with patient: 14:02 Chief Complaint: DIZZY Stated Complaint: DIZZINESS Nursing Triage Summary: Dizziness for the last week when sitting up. Patient also with decreased appetite. 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 She is a current resident at [facility] where the nurses noticed her oxygen was low last night. She is accompanied by her daughter who reports that her mother gets dizzy when she sits up and has been getting dizzier over the past week. She has had increased SOB and getting out of her chair worsens it. The patient also states she has constipation, nausea, and she vomited once this morning. Her daughter notes the patient fell last week and hit her head on the wall and has had some slurred speech since. The patient notes she feels fine. As per nursing staff, her pre hospital glucose was normal. She does not wear oxygen at home, but she is currently 97% on 2L. She was last at the hospital in October for a UTI and sepsis and has had 2 heart attacks since June. Pt denies LOC, headache, fevers, chills, diaphoresis, visual changes, neck pain, chest pain, abdominal pain, back pain, melena, hematochezia, urinary symptoms, numbness, weakness, lymphadenopathy, rash, or other complaints. 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 Positive recent fall last week. Review of Systems See HPI for pertinent positives and negatives. A total of ten systems were reviewed and were otherwise negative. Past Medical & Surgical Medical Problems: (1) Anemia (2) Benign hypertension (3) Diabetes mellitus (4) Hospital acquired PNA (5) Hyperlipidemia (6) Hypothyroidism (7) Influenza (8) Ischemic cardiomyopathy (9) NSTEMI (non-ST elevated myocardial infarction) (10) Osteomyelitis (11) Palliative care encounter Family History No pertinent family history Social History Smoking Status: Never Smoker Alcohol Use: none Drug Use: none Marital Status: Housing Status: long term Occupation Status: retired Current/Historical Medications Scheduled Acetaminophen (Tylenol), 650 MG PO Q8 Amiodarone HCl (Amiodarone HCl), 200 MG PO BID Aspirin (Aspirin EC Low Dose), 81 MG PO QAM Clopidogrel Bisulfate (Clopidogrel), 75 MG PO QAM Dimethicone (Topical) (Remedy Dimethicone Moistu), 1 APPLN TOP BID Insulin Aspart (Novolog Flexpen), 0 UNITS SC ACHS Lactobacillus Acidophilus (Lactinex), 1 TAB PO DAILY Levothyroxine Sodium (Levothyroxine Sodium), 50 MCG PO QAM Lisinopril (Zestril), 2.5 MG PO DAILY Magnesium Oxide (Magnesium-Oxide), 400 MG PO BID Metoprolol Tartrate (Lopressor), 75 MG PO BID Omeprazole (Prilosec), 20 MG PO DAILY Scheduled PRN Calcium Carbonate (Tums), 500 MG PO HS PRN for Dyspepsia Nitroglycerin (Nitrostat), 0.4 MG SL Q5M PRN for Chest Pain Ondansetron Hcl (Zofran), 4 MG PO Q6 PRN for Nausea Miscellaneous Medications Mirtazapine (Mirtazapine) Allergies Coded Allergies: No Known Allergies (Unverified , 01/09/18) Physical Exam Vital Signs Date Time Temp Pulse Resp B/P (MAP) Pulse Ox O2 Delivery O2 Flow Rate FiO2 01/09/18 16:30 69 22 158/66 97 4.0 01/09/18 16:05 94 Nasal Cannula 2.0 01/09/18 15:54 49 16 141/58 94 Nasal Cannula 2.0 01/09/18 14:37 47 16 147/58 97 Nasal Cannula 2.0 01/09/18 14:30 48 16 134/62 98 Nasal Cannula 2.0 01/09/18 14:28 48 16 134/62 98 Nasal Cannula 2.0 47 163/63 51 151/67 01/09/18 14:25 98 Nasal Cannula 2.0 01/09/18 14:25 98 Nasal Cannula 2.0 01/09/18 14:03 36.9 47 16 153/57 85 Room Air 01/09/18 13:57 48 Physical Exam GENERAL: Awake, alert, well-appearing, in no distress HENT: Normocephalic, atraumatic. Oropharynx unremarkable. EYES: Normal conjunctiva. Sclera non-icteric. NECK: Supple. No nuchal rigidity. FROM. No masses. RESPIRATORY: Clear to auscultation. No wheezes. Scattered rales at the bases. Normal respiratory effort. CARDIAC: Bradycardic rate. Normal rhythm. No murmurs. No rubs. Extremities warm and well perfused. Pulses equal. No JVD. GI: Soft, non-distended. No tenderness to palpation. No rebound or guarding. No masses. RECTAL: Deferred. MUSCULOSKELETAL: Atraumatic. Chest examination reveals no tenderness. The back kyphotic on inspection. There is no CVA tenderness to palpation. No joint edema. LOWER EXTREMITIES: Calves are equal size bilaterally and non-tender. No edema. No discoloration. NEURO: Normal sensorium. No sensory or motor deficits noted. No drift. Hard of hearing. SKIN: No rash or jaundice noted. Medical Decision & Procedures ER Provider Diagnostic Interpretation: Radiology results as stated below per my review and radiologist interpretation: CHEST ONE VIEW PORTABLE CLINICAL HISTORY: Weakness DIZZINESS COMPARISON STUDY: 11/14/2017 FINDINGS: The heart is enlarged. Since the prior study, the patient has developed moderately extensive bilateral multifocal airspace opacities. There is blunting of the left lateral costophrenic angle and there may be an associated pleural effusion.[ IMPRESSION: Interval development of multifocal airspace opacities. The findings are suspicious for a multifocal pneumonia. Clinical and radiographic follow-up is recommended Electronically signed by: Adal Sharma M.D. 01/09/2018 2:37 PM HEAD WITHOUT CONTRAST (CT) CLINICAL HISTORY: 87 years-old Female with EVALUATE WEAKNESS. Acute weakness TECHNIQUE: Multiple axial CT images of the head were obtained without contrast. A dose lowering technique was utilized adhering to the principles of ALARA. CT DOSE: 537.48 mGy.cm COMPARISON: CT head 11/14/2017. FINDINGS: No acute intracranial hemorrhage, midline shift, intracranial mass, hydrocephalus, territorial ischemia or abnormal extra-axial collection. Age-related involutional changes. Senescent calcifications of the right lentiform nucleus. Ill-defined low-attenuation about the white matter redemonstrated suggesting chronic microvascular ischemic changes. Cerebral vascular calcifications are noted. The calvarium is intact. Trace right mastoid effusion. Left mastoid air cells are clear. Mild to moderate mucosal thickening of the left sphenoid sinus. Mild mucosal thickening of the ethmoid air cells. The soft tissues and orbits are unremarkable. IMPRESSION: No acute intracranial abnormality. The above report was generated using voice recognition software. It may contain grammatical, syntax or spelling errors. Electronically signed by: Aldo Mukherjee M.D. 01/09/2018 3:10 PM Laboratory Results 01/09/18 15:23 Red Blood Count 3.37, Mean Corpuscular Volume 90.2, Mean Corpuscular Hemoglobin 29.1, Mean Corpuscular Hemoglobin Concent 32.2, Mean Platelet Volume 8.8, Neutrophils (%) (Auto) 82.0, Lymphocytes (%) (Auto) 8.5, Monocytes (%) (Auto) 8.1, Eosinophils (%) (Auto) 0.7, Basophils (%) (Auto) 0.1, Neutrophils # (Auto) 6.74, Lymphocytes # (Auto) 0.70, Monocytes # (Auto) 0.67, Eosinophils # (Auto) 0.06, Basophils # (Auto) 0.01 01/09/18 15:23 Test 01/09/18 15:23 01/09/18 15:35 01/09/18 15:36 White Blood Count 8.23 K/uL (4.8-10.8) Red Blood Count 3.37 M/uL (4.2-5.4) Hemoglobin 9.8 g/dL (12.0-16.0) Hematocrit 30.4 % (37-47) Mean Corpuscular Volume 90.2 fL (80-100) Mean Corpuscular Hemoglobin 29.1 pg (25-34) Mean Corpuscular Hemoglobin Concent 32.2 g/dl (32-36) Platelet Count 353 K/uL (130-400) Mean Platelet Volume 8.8 fL (7.4-10.4) Neutrophils (%) (Auto) 82.0 % Lymphocytes (%) (Auto) 8.5 % Monocytes (%) (Auto) 8.1 % Eosinophils (%) (Auto) 0.7 % Basophils (%) (Auto) 0.1 % Neutrophils # (Auto) 6.74 K/uL (1.4-6.5) Lymphocytes # (Auto) 0.70 K/uL (1.2-3.4) Monocytes # (Auto) 0.67 K/uL (0.11-0.59) Eosinophils # (Auto) 0.06 K/uL (0-0.5) Basophils # (Auto) 0.01 K/uL (0-0.2) RDW Standard Deviation 49.3 fL (36.4-46.3) RDW Coefficient of Variation 15.1 % (11.5-14.5) Immature Granulocyte % (Auto) 0.6 % Immature Granulocyte # (Auto) 0.05 K/uL (0.00-0.02) Prothrombin Time 11.5 SECONDS (9.0-12.0) Prothromb Time International Ratio 1.1 (0.9-1.1) Activated Partial Thromboplast Time 24.0 SECONDS (21.0-31.0) Partial Thromboplastin Ratio 0.9 Anion Gap 8.0 mmol/L (3-11) Est Creatinine Clear Calc Drug Dose 21.7 ml/min Estimated GFR () 36.9 Estimated GFR (Non- 31.8 BUN/Creatinine Ratio 18.4 (10-20) Calcium Level 7.9 mg/dl (8.5-10.1) Magnesium Level 2.3 mg/dl (1.8-2.4) Total Bilirubin 0.4 mg/dl (0.2-1) Direct Bilirubin 0.2 mg/dl (0-0.2) Aspartate Amino Transf (AST/SGOT) 25 U/L (15-37) Alanine Aminotransferase (ALT/SGPT) 28 U/L (12-78) Alkaline Phosphatase 86 U/L (45-117) Troponin I 0.018 ng/ml (0-0.045) Pro-B-Type Natriuretic Peptide 46011 pg/ml (0-1800) Total Protein 6.6 gm/dl (6.4-8.2) Albumin 2.1 gm/dl (3.4-5.0) Lipase 66 U/L (73-393) Thyroid Stimulating Hormone (TSH) 4.940 uIu/ml (0.300-4.500) Urine Color YELLOW Urine Appearance CLEAR (CLEAR) Urine pH 5.0 (4.5-7.5) Urine Specific [place] 1.017 (1.000-1.030) Urine Protein 1+ (NEG) Urine Glucose (UA) NEG (NEG) Urine Ketones NEG (NEG) Urine Occult Blood NEG (NEG) Urine Nitrite NEG (NEG) Urine Bilirubin NEG (NEG) Urine Urobilinogen NEG (NEG) Urine Leukocyte Esterase TRACE (NEG) Urine WBC (Auto) 1-5 /hpf (0-5) Urine RBC (Auto) 0-4 /hpf (0-4) Urine Hyaline Casts (Auto) 1-5 /lpf (0-5) Urine Epithelial Cells (Auto) 5-10 /lpf (0-5) Urine Bacteria (Auto) NEG (NEG) Procalcitonin 0.14 ng/ml (0-0.5) Laboratory results reviewed by me Medications Administered Medications (Trade) Dose Ordered Sig/Thelma Route Start Time Stop Time Status Last Admin Dose Admin Piperacillin Sod/ Tazobactam Sod (Zosyn Iv) 4.5 gm NOW STAT IV 01/09/18 15:10 01/09/18 15:14 DC 01/09/18 15:54 4.5 GM Doxycycline Hyclate 100 mg/ Dextrose 110 ml @ 50 mls/hr NOW STAT IV 01/09/18 15:10 01/09/18 17:21 DC 01/09/18 16:29 50 MLS/HR ECG Per My Interpretation Indication: other (dizziness) Rate (beats per minute): 48 Rhythm: sinus bradycardia Findings: 1st degree AV block, nonspecific-ST abn, left axis deviation, other ( poor R wave progression anteriorly, no ST elevation) Comparison ECG Date: when compared to pre hospital ACG Change: no significant change Change: EKG done at 1432 shows sinus bradycardia with a rate of 47, 1st degree block, nonspecific ST abnormalities, no ST elevation or depression ED Course 1408: The patient was evaluated in room B7. A complete history and physical exam was performed. 1510: Ordered Doxycycline Hyclate 100 mg/Dextrose 110 ml @ 50 mls/hr IV, Zosyn IV 4.5 mg IV 1514: I checked on the patient at this time and discussed results with her and her family. 1600: Discussed the patient's case with Dr. Saldaña, [facility] Hospitalist. The patient will be evaluated for further treatment and disposition. 1643: The patient is currently being evaluated by the hospitalist. 1720: The patient's daughter was concerned about her mother having a CT, so one will not be done at this time. Medical Decision Prior records/ancillary studies reviewed and summarized above. Nursing notes reviewed and agree them. Additional history obtained from the patient's daughter. The patient's history was concerning for weakness. Differential diagnosis: Etiologies such as metabolic, infection, hypo/hyperglycemia, electrolyte abnormalities, cardiac sources, intracerebral event, toxicologic, neurologic, as well as others were entertained. Physical examination: As above. The patient was hypoxic on room air. ER treatment provided: IV Lock Supplemental oxygen IV Zosyn IV doxycycline On reassessment the patient felt better. Diagnostics interpretation by me: ECG: No acute ischemia The labs revealed an unremarkable CBC except for moderate anemia which is stable. BNP moderately elevated compared to prior. Troponin negative. Imaging studies: Chest x-ray as above. Head CT as above. Consultation: A consultation was placed with the hospitalist. The case was discussed and diagnostics were reviewed. The patient was evaluated in the ER for further treatment. The patient appears to have a pneumonia on chest x-ray. She does not have a white count or fever. I did order a CT PE study however the patient's family refused. This was addressed by the hospitalist service. She was treated with IV antibiotics. She remained hemodynamically stable in the emergency department. She was admitted for further treatment. Medication Reconcilliation Current Medication List: was personally reviewed by me Blood Pressure Screening Patient's blood pressure: Elevated blood pressure Blood pressure disposition: Referred to PCP Consults Time Called: 1545 Consulting Physician: Dr. Saldaña [facility] Hospitalist Returned Call: 1600 Discussed the patient's case with Dr. Saldaña [facility] Hospitalist. The patient will be evaluated for further treatment and disposition. Impression Primary Impression: Hypoxia Additional Impression: Pneumonia Scribe Attestation The scribe's documentation has been prepared under my direction and personally reviewed by me in its entirety. I confirm that the note above accurately reflects all work, treatment, procedures, and medical decision making performed by me. Departure Information Dispostion Being Evaluated By Hospitalist (Dr. Saldaña [facility] Hospitalist ) Referrals ERICK BECKETT (PCP) Patient Instructions My [facility] Problem Qualifiers
--- NOTE | 2018-01-09 20:18 | Pharmacy Progress Note ---
Glycemic Control Intl Consult Date of Service Jan 09, 2018. Scope Glycemic Pharmacist consulted by Dr Saldaña on 01/09/18 for glycemic control and to write orders per [facility] inpatient glycemic control protocol Objective Weight (Kilograms): 61.200 Accuchecks BSG (last 24hrs): Test 01/09/18 15:23 01/09/18 19:46 Random Glucose 128 mg/dl (70-99) Bedside Glucose 226 mg/dl (70-90) Laboratory Data (last 24hrs) Test 01/09/18 15:23 Anion Gap 8.0 mmol/L BUN/Creatinine Ratio 18.4 Blood Urea Nitrogen 27 mg/dl Creatinine 1.45 mg/dl Potassium Level 4.6 mmol/L Sodium Level 135 mmol/L White Blood Count 8.23 K/uL Red Blood Count 3.37 M/uL Hemoglobin 9.8 g/dL Hematocrit 30.4 % Mean Corpuscular Volume 90.2 fL Mean Corpuscular Hemoglobin 29.1 pg Mean Corpuscular Hemoglobin Concent 32.2 g/dl Platelet Count 353 K/uL Mean Platelet Volume 8.8 fL Neutrophils (%) (Auto) 82.0 % Lymphocytes (%) (Auto) 8.5 % Monocytes (%) (Auto) 8.1 % Eosinophils (%) (Auto) 0.7 % Basophils (%) (Auto) 0.1 % Neutrophils # (Auto) 6.74 K/uL Lymphocytes # (Auto) 0.70 K/uL Monocytes # (Auto) 0.67 K/uL Eosinophils # (Auto) 0.06 K/uL Basophils # (Auto) 0.01 K/uL Recent Pertinent Medications Outpatient Anti-diabetic Regimen: * Humalog SSI, Lantus 5u HS, Metformin 850mg BIDM per [employer] * A1c = 7.0 % 09/27/17 Risk Factors for Insulin Resistance: * Steroids: IV SM 60mg x1 * Infection: r/o HAP Assessment & Plan ASSESSMENT: * Ms. Dyson is an 87yo F unbeknownst to the pharmacy glycemic service. She p/w hypoxia and now being r/o for potential infectious etiology. A1C 7.0% from indicative of adequate outpt glycemic management. A1C ordered for 01/10/18 @ 0444. Solumedrol 60mg IV x1 given earlier. Unsure of glucocorticoid treatment moving forward. PLAN FOR INPATIENT GLYCEMIC CONTROL: * Holding outpatient oral diabetes medications * Basal insulin with LANTUS 8units (0.1u/kg) given this evening to cover her metabolically * Correctional Insulin with NOVOLOG per scale ACHS: will trial weight/stress of II * Goal Range: Low 110 mg/dL - High 140 mg/dL * Correction Factor: 40 mg/dL/unit * Nutritional / Prandial insulin per carb ratio of 1 unit per 13 grams CHO consumed * Will add 00,04 checks to help ensure euglycemia * Please note that the plan above was derived based on current level of insulin resistance and hospital stress. These recommendations are appropriate for inpatient admission only. Plan of care upon discharge will need to be reassessed to avoid potential outpatient hypo/hyperglycemia. Thank you.
[2018-01-09] MEDS: HYDROPHOR OINT 100 GM JAR EXT SCH (20:42)
[2018-01-09] MEDS: MAGNESIUM OXIDE 400 MG TAB PO SCH (20:43)
[2018-01-09] MEDS: METOPROLOL TARTRATE 25 MG TAB PO SCH (20:45)
[2018-01-09] MEDS: AMIODARONE 200 MG TAB PO SCH (20:46)
[2018-01-09] MEDS: INSULIN ASPART 100 UNITS/ML 3 ML PEN SC SCH (20:51)
[2018-01-09] MEDS: HEPARIN SOD 5000 UNIT/0.5 ML CARP SQ SCH (20:52)
[2018-01-09] MEDS: PIPERACILL/TAZOBAC IV 3.375 GM in DEXTROSE 5% 100ML 100 ML IV SCH (22:12)
[2018-01-09 23:25] VITALS: BP 142/62; PULSE 49; TEMP 37.5; O2SAT 96
[2018-01-10] VITALS (9 sets, daily range): BP systolic 121–171; BP diastolic 49–90; PULSE 43–59; TEMP 36.3–36.9; O2SAT 95–100
[2018-01-10] MEDS: INSULIN ASPART 100 UNITS/ML 3 ML PEN SC SCH ×6 (00:09→20:49)
[2018-01-10] MEDS ORDERED: AZTREONAM IV 1,000 MG in DEXTROSE 5% 100ML IV SCH (04:00)
[2018-01-10 05:32] LABS: HEMATOCRIT 29.1 % (37-47); HEMOGLOBIN 9.4 g/dL (12.0-16.0); IG# 0.03 K/uL (0.00-0.02); LYMPH % 4.7 %; LYMPH ABS # 0.34 K/uL (1.2-3.4); MEAN CELL VOLUME 89.8 fL (80-100); MEAN CORPUSCULAR HGB CONC 32.3 g/dl (32-36); MEAN PLATELET VOLUME 8.6 fL (7.4-10.4); MONO ABS # 0.07 K/uL (0.11-0.59); NEUT % 93.9 %; NEUT ABS # 6.72 K/uL (1.4-6.5); PLATELET COUNT 291 K/uL (130-400); RED CELL DISTRIBUTION WIDTH CV 14.9 % (11.5-14.5); WHITE BLOOD COUNT 7.16 K/uL (4.8-10.8)
[2018-01-10] MEDS: PIPERACILL/TAZOBAC IV 3.375 GM in DEXTROSE 5% 100ML 100 ML IV SCH ×3 (05:33→22:02)
[2018-01-10] MEDS: LEVOTHYROXINE 50 MCG TAB PO SCH (05:34)
[2018-01-10] MEDS: HEPARIN SOD 5000 UNIT/0.5 ML CARP SQ SCH ×3 (05:37→22:05)
[2018-01-10 05:59] LABS: CREATININE 1.57 mg/dl (0.60-1.20); PHOSPHORUS 3.7 mg/dl (2.5-4.9); POTASSIUM 4.9 mmol/L (3.5-5.1)
[2018-01-10 06:24] LABS: HEMOGLOBIN A1C 6.5 % (4.5-5.6)
[2018-01-10] MEDS: PANTOprazole SOD 40 MG TAB PO SCH (08:42)
[2018-01-10] MEDS: MAGNESIUM OXIDE 400 MG TAB PO SCH ×2 (08:42→20:43)
[2018-01-10] MEDS: ASPIRIN 81 MG ECTAB PO SCH (08:43)
[2018-01-10] MEDS: METOPROLOL TARTRATE 25 MG TAB PO SCH ×2 (08:43→20:43)
[2018-01-10] MEDS: CLOPIDOGREL BISULFATE 75 MG TAB PO SCH (08:44)
[2018-01-10] MEDS: LACTOBACILLUS ACIDOPHILUS (FLORANEX) TAB PO SCH (08:45)
[2018-01-10] MEDS: AMIODARONE 200 MG TAB PO SCH ×2 (08:45→20:42)
[2018-01-10] MEDS: HYDROPHOR OINT 100 GM JAR EXT SCH ×2 (08:46→20:42)
[2018-01-10] MEDS ORDERED: LISINOPRIL 2.5 MG TAB PO SCH (09:00)
--- NOTE | 2018-01-10 09:03 | DIAGNOSTIC IMAGING REPORT ---
CHEST ONE VIEW PORTABLE HISTORY: 87 years-old Female hypoxia acute shortness of breath with dizziness and weakness COMPARISON: Chest radiograph 01/09/2018 TECHNIQUE: Portable AP view of the chest FINDINGS: Cardiac silhouette is enlarged. Calcification of the aorta. Mitral annular calcifications are also noted. There is no pneumothorax. Trace left pleural effusion. Redemonstration of multifocal bilateral patchy distribution of mixed interstitial and alveolar opacities which appear unchanged from comparison study. The bones of the chest appear grossly intact. IMPRESSION: 1. Redemonstration of bilateral mixed interstitial and alveolar opacities within a multisegmental distribution suggesting multifocal pneumonia. 2. Cardiomegaly. 3. Trace left pleural effusion. The above report was generated using voice recognition software. It may contain grammatical, syntax or spelling errors. Electronically signed by: Aldo Mukherjee M.D. 01/10/2018 7:21 AM Dictated Date/Time: 01/10/2018 7:19 AM
[2018-01-10] MEDS ORDERED: PIPERACILL/TAZOBAC CONSULT ACTIVE PRN (10:00)
[2018-01-10] MEDS ORDERED: INSULIN GLARGINE SOLOSTAR 100 UNITS/ML 3 ML PEN SC STA (10:03)
--- NOTE | 2018-01-10 13:14 | Pharmacy Progress Note ---
Pharmacy Glycemic Short Note 2 Date of Service Jan 10, 2018. ASSESSMENT: * AM fasting 249, lunch BSG 369. Likely steroid induced hyperglycemia and under dosing of her lantus 01/09/18. I surmise that solumedrol's effects on BSGs should start to dissipate by tonight (~24hrs after yesterdays dose). PLAN FOR INPATIENT GLYCEMIC CONTROL: * Hold outpatient oral diabetes medications * Basal insulin * Lantus 10 units given this AM. Will set one time lantus scale for tonight: 0, 10,15 units based on HS BSG. * Bolus insulin * NovoLog per scale ACHS - tightened * Goal Range: Low 110 mg/dL - High 140 mg/dL * Correction Factor: 30 mg/dL/unit * Nutritional / Prandial insulin per carb ratio of 1 unit per 10 grams CHO consumed * adding 00,04 checks PLAN FOR DISCHARGE: * Adequate Outpt glycemic management pursuant to A1C of 6.5% based on age and co -morbidities. I would recommend continuing her regimen as long as there aren't reports of hypoglycemia
--- NOTE | 2018-01-10 15:13 | Progress Note ---
Subjective Date of Service: Jan 10, 2018. Subjective Pt is pleasant states she feels better has no focal complaints but little cough Problem List Medical Problems: (1) Altered mental status Status: Acute (2) Congestive heart failure (CHF) Status: Acute (3) Elevated troponin Status: Acute (4) Hypomagnesemia Status: Acute (5) Hypoxia Status: Acute (6) Influenza A Status: Acute (7) Influenza B Status: Acute (8) NSTEMI (non-ST elevated myocardial infarction) Status: Acute (9) Pneumonia Status: Acute (10) PVC (premature ventricular contraction) Status: Acute (11) Sepsis Status: Acute (12) UTI (urinary tract infection) Status: Acute Review of Systems Constitutional: + weakness, + fatigue, No fever, No chills Respiratory: + dyspnea on exertion, No cough, No sputum, No shortness of breath Cardiac: No chest pain, No edema Abdomen: No pain, No nausea, No vomiting, No diarrhea Neurologic: No memory loss, No paralysis, No weakness Psychiatric: No depression symptoms, No anhedonism Objective Vital Signs Date Time Temp Pulse Resp B/P (MAP) Pulse Ox O2 Delivery O2 Flow Rate FiO2 01/10/18 08:00 54 171/90 (117) 01/10/18 07:57 53 161/64 (96) 01/10/18 07:55 36.4 52 18 150/70 (96) 96 Nasal Cannula 3.0 01/10/18 07:30 95 Nasal Cannula 3.0 01/10/18 03:42 36.7 50 20 145/67 (93) 95 Nasal Cannula 3.0 01/09/18 23:25 37.5 49 20 142/62 (88) 96 Nasal Cannula 3.0 01/09/18 20:00 98 Nasal Cannula 2.0 01/09/18 19:53 138/54 (82) 01/09/18 19:31 36.9 50 173/71 (105) 97 Nasal Cannula 2.0 01/09/18 18:28 36.4 48 22 158/66 (96) 97 Nasal Cannula 2.0 01/09/18 16:30 69 22 158/66 97 4.0 01/09/18 16:05 94 Nasal Cannula 2.0 01/09/18 15:54 49 16 141/58 94 Nasal Cannula 2.0 7/25/18 14:37 47 16 147/58 97 Nasal Cannula 2.0 01/09/18 14:30 48 16 134/62 98 Nasal Cannula 2.0 01/09/18 14:28 48 16 134/62 98 Nasal Cannula 2.0 47 163/63 51 151/67 01/09/18 14:25 98 Nasal Cannula 2.0 01/09/18 14:25 98 Nasal Cannula 2.0 01/09/18 14:03 36.9 47 16 153/57 85 Room Air 01/09/18 13:57 48 Physical Exam General Appearance: WD/WN, + mild distress Eyes: normal inspection, PERRL, EOMI, sclerae normal Neck: supple, no JVD Respiratory/Chest: chest non-tender, + decreased breath sounds, + rhonchi Cardiovascular: regular rate, rhythm, no murmur Abdomen: normal bowel sounds, non tender, soft Extremities: no pedal edema, no calf tenderness Neurologic/Psychiatric: alert, oriented x 3 Laboratory Results Last 24 Hours Test 01/09/18 15:23 01/09/18 15:35 01/09/18 15:36 01/09/18 19:46 White Blood Count 8.23 K/uL Red Blood Count 3.37 M/uL Hemoglobin 9.8 g/dL Hematocrit 30.4 % Mean Corpuscular Volume 90.2 fL Mean Corpuscular Hemoglobin 29.1 pg Mean Corpuscular Hemoglobin Concent 32.2 g/dl Platelet Count 353 K/uL Mean Platelet Volume 8.8 fL Neutrophils (%) (Auto) 82.0 % Lymphocytes (%) (Auto) 8.5 % Monocytes (%) (Auto) 8.1 % Eosinophils (%) (Auto) 0.7 % Basophils (%) (Auto) 0.1 % Neutrophils # (Auto) 6.74 K/uL Lymphocytes # (Auto) 0.70 K/uL Monocytes # (Auto) 0.67 K/uL Eosinophils # (Auto) 0.06 K/uL Basophils # (Auto) 0.01 K/uL RDW Standard Deviation 49.3 fL RDW Coefficient of Variation 15.1 % Immature Granulocyte % (Auto) 0.6 % Immature Granulocyte # (Auto) 0.05 K/uL Prothrombin Time 11.5 SECONDS Prothromb Time International Ratio 1.1 Activated Partial Thromboplast Time 24.0 SECONDS Partial Thromboplastin Ratio 0.9 Sodium Level 135 mmol/L Potassium Level 4.6 mmol/L Chloride Level 102 mmol/L Carbon Dioxide Level 25 mmol/L Anion Gap 8.0 mmol/L Blood Urea Nitrogen 27 mg/dl Creatinine 1.45 mg/dl Est Creatinine Clear Calc Drug Dose 21.7 ml/min Estimated GFR () 36.9 Estimated GFR (Non- 31.8 BUN/Creatinine Ratio 18.4 Random Glucose 128 mg/dl Calcium Level 7.9 mg/dl Magnesium Level 2.3 mg/dl Total Bilirubin 0.4 mg/dl Direct Bilirubin 0.2 mg/dl Aspartate Amino Transf (AST/SGOT) 25 U/L Alanine Aminotransferase (ALT/SGPT) 28 U/L Alkaline Phosphatase 86 U/L Troponin I 0.018 ng/ml Pro-B-Type Natriuretic Peptide 74403 pg/ml Total Protein 6.6 gm/dl Albumin 2.1 gm/dl Lipase 66 U/L Thyroid Stimulating Hormone (TSH) 4.940 uIu/ml Urine Color YELLOW Urine Appearance CLEAR Urine pH 5.0 Urine Specific [place] 1.017 Urine Protein 1+ Urine Glucose (UA) NEG Urine Ketones NEG Urine Occult Blood NEG Urine Nitrite NEG Urine Bilirubin NEG Urine Urobilinogen NEG Urine Leukocyte Esterase TRACE Urine WBC (Auto) 1-5 /hpf Urine RBC (Auto) 0-4 /hpf Urine Hyaline Casts (Auto) 1-5 /lpf Urine Epithelial Cells (Auto) 5-10 /lpf Urine Bacteria (Auto) NEG Procalcitonin 0.14 ng/ml Bedside Glucose 226 mg/dl Test 01/10/18 00:00 01/10/18 04:12 01/10/18 05:21 Bedside Glucose 239 mg/dl 249 mg/dl White Blood Count 7.16 K/uL Red Blood Count 3.24 M/uL Hemoglobin 9.4 g/dL Hematocrit 29.1 % Mean Corpuscular Volume 89.8 fL Mean Corpuscular Hemoglobin 29.0 pg Mean Corpuscular Hemoglobin Concent 32.3 g/dl Platelet Count 291 K/uL Mean Platelet Volume 8.6 fL Neutrophils (%) (Auto) 93.9 % Lymphocytes (%) (Auto) 4.7 % Monocytes (%) (Auto) 1.0 % Eosinophils (%) (Auto) 0.0 % Basophils (%) (Auto) 0.0 % Neutrophils # (Auto) 6.72 K/uL Lymphocytes # (Auto) 0.34 K/uL Monocytes # (Auto) 0.07 K/uL Eosinophils # (Auto) 0.00 K/uL Basophils # (Auto) 0.00 K/uL RDW Standard Deviation 49.0 fL RDW Coefficient of Variation 14.9 % Immature Granulocyte % (Auto) 0.4 % Immature Granulocyte # (Auto) 0.03 K/uL Sodium Level 135 mmol/L Potassium Level 4.9 mmol/L Chloride Level 104 mmol/L Carbon Dioxide Level 24 mmol/L Anion Gap 7.0 mmol/L Blood Urea Nitrogen 27 mg/dl Creatinine 1.57 mg/dl Est Creatinine Clear Calc Drug Dose 20.1 ml/min Estimated GFR () 33.5 Estimated GFR (Non- 28.9 BUN/Creatinine Ratio 17.3 Random Glucose 280 mg/dl Estimated Average Glucose 140 mg/dl Hemoglobin A1c 6.5 % Calcium Level 7.0 mg/dl Phosphorus Level 3.7 mg/dl Magnesium Level 2.3 mg/dl Random Vancomycin Level 13.3 mcg/ml Assessment and Plan 87 F with hospital acquired pneumonia. has ckd # HAP zosyn azactam and vanco for pseudomonas and MRSA coverage. neb treatment PRN and streoids IV. acute kidney injury on CKD stage IIIb, will use some low level ivf as has some worsening of Cr CAD, h/o NSTEMI, HTN, HLD--BP now stable -Continue ASA, Plavix, Lopressor 50 mg PO BID -Lisinopril held as above DM II--last HgbA1c 7.0 on 09/27/17 -Hold metformin -Continue Lantus SC qd plus -Insulin sliding scale Hypothyroidism Synthroid 50 mcg PO qd DVT prophylaxis -Heparin 5000 units SC q12h -PANFILO dill and SCDs Code Status -Level V, Do not resuscitate
[2018-01-10] MEDS ORDERED: SODIUM CHLORIDE 0.9% 1000ML 1,000 ML IV SCH (15:15)
[2018-01-10] MEDS ORDERED: HydrALAZINE HCL 20 MG/ML VIAL IV PRN (15:15)
[2018-01-10] MEDS ORDERED: INSULIN GLARGINE SOLOSTAR 100 UNITS/ML 3 ML PEN SC ONE (21:00)
[2018-01-11] MEDS: INSULIN ASPART 100 UNITS/ML 3 ML PEN SC SCH ×6 (00:09→20:18)
[2018-01-11 04:13] VITALS: BP 128/62; PULSE 46; TEMP 36.5; O2SAT 96
[2018-01-11] MEDS: LEVOTHYROXINE 50 MCG TAB PO SCH (05:49)
[2018-01-11] MEDS: PIPERACILL/TAZOBAC IV 3.375 GM in DEXTROSE 5% 100ML 100 ML IV SCH ×2 (05:49→13:48)
[2018-01-11] MEDS: HEPARIN SOD 5000 UNIT/0.5 ML CARP SQ SCH ×3 (05:50→20:19)
[2018-01-11 07:20] VITALS: BP 150/73; PULSE 49; TEMP 36.9; O2SAT 95
[2018-01-11] MEDS: PANTOprazole SOD 40 MG TAB PO SCH (09:32)
[2018-01-11] MEDS: LACTOBACILLUS ACIDOPHILUS (FLORANEX) TAB PO SCH (09:32)
[2018-01-11] MEDS: CLOPIDOGREL BISULFATE 75 MG TAB PO SCH (09:32)
[2018-01-11] MEDS: AMIODARONE 200 MG TAB PO SCH ×3 (09:32→21:00)
[2018-01-11] MEDS: METOPROLOL TARTRATE 25 MG TAB PO SCH ×3 (09:37→21:00)
[2018-01-11] MEDS: MAGNESIUM OXIDE 400 MG TAB PO SCH ×3 (09:37→21:00)
[2018-01-11] MEDS: ASPIRIN 81 MG ECTAB PO SCH (09:37)
[2018-01-11] MEDS: ACETAMINOPHEN 325 MG TAB PO PRN ×2 (09:41→16:55)
--- NOTE | 2018-01-11 10:33 | Clinical Documentation Query ---
IAN Hale : CLINICAL VALIDATION QUERY This is for educational purposes at this time. Documentation includes the following: Problem List Medical Problems: (1) Altered mental status Status: Acute (2) Congestive heart failure (CHF) Status: Acute (3) Elevated troponin Status: Acute (4) Hypomagnesemia Status: Acute (5) Hypoxia Status: Acute (6) Influenza A Status: Acute (7) Influenza B Status: Acute (8) NSTEMI (non-ST elevated myocardial infarction) Status: Acute (9) Pneumonia Status: Acute (10) PVC (premature ventricular contraction) Status: Acute (11) Sepsis Status: Acute (12) UTI (urinary tract infection) Status: Acute As of February 2018, the patient problem list, as documented in the EMR, will reportedly be required to be maintained in an accurate and thorough manner. This is in order to be compliant with meaningful use, a set of standards designed to ensure EHR's produce better health outcomes. Accordingly, please review documentation as currently maintained in the record and consider updating/correcting as appropriate. Thank you. Thank You, Dwayne Gilman, CHARISSE [phone]
[2018-01-11 11:56] VITALS: BP 134/78; PULSE 58; TEMP 36.5; O2SAT 96
[2018-01-11] MEDS: HYDROPHOR OINT 100 GM JAR EXT SCH ×2 (12:10→20:14)
[2018-01-11 14:30] LABS: CREATININE 1.53 mg/dl (0.60-1.20)
[2018-01-11] MEDS ORDERED: FUROSEMIDE INJ 10 MG in SYRINGE 0 ML IV ONE (14:45)
[2018-01-11 15:28] VITALS: BP 125/86; PULSE 72; TEMP 36.7; O2SAT 96
--- NOTE | 2018-01-11 15:43 | DIAGNOSTIC IMAGING REPORT ---
(CHEST) THORAX WITHOUT CT DOSE: 309.30 mGy.cm HISTORY: Shortness of breath. Hypoxia. eval for malignancy or hf TECHNIQUE: Multiaxial CT images of the chest were performed without contrast. A dose lowering technique was utilized adhering to the principles of ALARA. COMPARISON: Chest 01/10/2018. Abdomen and pelvis CT 11/14/2017. FINDINGS: There is respiratory motion artifact. No pneumothorax. Multifocal scattered patchy groundglass and consolidative airspace opacities. There is also mild interlobular septal thickening. The central airways are patent. No suspicious lytic or blastic osseous lesions. The unenhanced liver and spleen are unremarkable. Small to moderate bilateral pleural effusions. Mild body wall edema. Calcified normal caliber thoracic aorta. The heart is mildly enlarged. Mitral annulus and coronary artery calcifications. No significant mediastinal or hilar lymphadenopathy. IMPRESSION: 1. Cardiomegaly, small to moderate bilateral pleural effusions, and multifocal patchy consolidative and groundglass airspace opacities seen throughout the lungs. These findings favor moderate to severe pulmonary edema. A multifocal pneumonia could also have a similar appearance. 2. Mild body wall edema. Electronically signed by: Ole Rodriguez M.D. 01/11/2018 3:41 PM Dictated Date/Time: 01/11/2018 3:35 PM
--- NOTE | 2018-01-11 16:56 | Progress Note ---
Subjective Date of Service: Jan 11, 2018. Subjective this pt is pleasantly confused, she has no focal complaints, CT suggests issues are more likley HF, and less likely pneumonia, will stop antibiotic Problem List Medical Problems: (1) Altered mental status Status: Acute (2) Congestive heart failure (CHF) Status: Acute (3) Elevated troponin Status: Acute (4) Hypomagnesemia Status: Acute (5) Hypoxia Status: Acute (6) Influenza A Status: Acute (7) Influenza B Status: Acute (8) NSTEMI (non-ST elevated myocardial infarction) Status: Acute (9) Pneumonia Status: Acute (10) PVC (premature ventricular contraction) Status: Acute (11) Sepsis Status: Acute (12) UTI (urinary tract infection) Status: Acute Review of Systems Constitutional: + weakness, + fatigue, No fever, No chills Respiratory: No cough, No shortness of breath Cardiac: No chest pain, No edema Abdomen: No pain, No nausea, No vomiting, No diarrhea Neurologic: No memory loss, No paralysis, No weakness Objective Vital Signs Date Time Temp Pulse Resp B/P (MAP) Pulse Ox O2 Delivery O2 Flow Rate FiO2 01/11/18 15:28 36.7 72 18 125/86 (99) 96 01/11/18 11:56 36.5 58 18 134/78 (96) 96 Nasal Cannula 3.0 01/11/18 07:30 Nasal Cannula 2.0 01/11/18 07:20 36.9 49 18 150/73 (98) 95 Nasal Cannula 2.0 01/11/18 04:13 36.5 46 18 128/62 (84) 96 Nasal Cannula 3.0 01/11/18 00:15 Nasal Cannula 3.0 01/10/18 23:52 36.4 45 18 132/49 (76) 96 Nasal Cannula 3.0 01/10/18 19:51 36.3 44 16 121/58 (79) 100 Nasal Cannula 2.0 Physical Exam General Appearance: + mild distress, + thin Eyes: normal inspection, sclerae normal Neck: supple, + JVD Respiratory/Chest: chest non-tender, + decreased breath sounds Cardiovascular: regular rate, rhythm, + systolic murmur Abdomen: normal bowel sounds, non tender, soft Extremities: no pedal edema, no calf tenderness Neurologic/Psychiatric: alert, oriented x 3 Laboratory Results Last 24 Hours Test 01/10/18 20:40 01/10/18 23:42 01/11/18 03:49 01/11/18 05:49 Bedside Glucose 245 mg/dl 158 mg/dl 123 mg/dl Procalcitonin 0.12 ng/ml Test 01/11/18 07:10 01/11/18 11:04 01/11/18 14:01 01/11/18 16:08 Bedside Glucose 84 mg/dl 147 mg/dl 285 mg/dl Creatinine 1.53 mg/dl Est Creatinine Clear Calc Drug Dose 20.6 ml/min Estimated GFR () 34.6 Estimated GFR (Non- 29.8 Assessment and Plan 87 F with hospital acquired pneumonia. has ckd # HAP this is ruled out as changes seem to be confirmed to be HF by CT suggests is acute on chronic diastolic heart failure from valvular heart disease and SOB compounded by Pulmonary htn Acute on chronic diastolic heart failure adding lasix daily and will try to wean off oxygen acute kidney injury on CKD stage IIIb, Cr is settled near 1.5 CAD, h/o NSTEMI, HTN, HLD--BP now stable -Continue ASA, Plavix, Lopressor 50 mg PO BID -Lisinopril held as above, with diastolic failure it will help valve disease will attempt to regain euvoluemic status DM II--last HgbA1c 7.0 on 09/27/17 -Holding metformin -Continue Lantus SC qd plus -Insulin sliding scale Hypothyroidism clinically stable on Synthroid 50 mcg PO qd DVT prophylaxis -Heparin 5000 units SC q12h -PANFILO [place] Code Status -Level V, Do not resuscitate
[2018-01-11 19:27] VITALS: BP 117/46; PULSE 57; TEMP 36.6; O2SAT 99
[2018-01-11] MEDS ORDERED: HALOPERIDOL LACTATE 5 MG/ML 1 ML VIAL IM STA (22:07)
[2018-01-12 00:05] VITALS: BP 149/78; PULSE 104; TEMP 36.8; O2SAT 94
[2018-01-12 03:15] VITALS: BP 136/84; PULSE 78; TEMP 36.8; O2SAT 95
[2018-01-12] MEDS: LEVOTHYROXINE 50 MCG TAB PO SCH (05:27)
[2018-01-12] MEDS: HEPARIN SOD 5000 UNIT/0.5 ML CARP SQ SCH ×2 (05:28→14:00)
[2018-01-12 06:41] VITALS: BP 115/66; PULSE 85; TEMP 36.7; O2SAT 93
[2018-01-12 06:49] LABS: CREATININE 1.35 mg/dl (0.60-1.20)
[2018-01-12] MEDS: AMIODARONE 200 MG TAB PO SCH (07:44)
[2018-01-12] MEDS: CLOPIDOGREL BISULFATE 75 MG TAB PO SCH (07:44)
[2018-01-12] MEDS: LACTOBACILLUS ACIDOPHILUS (FLORANEX) TAB PO SCH (07:44)
[2018-01-12] MEDS: METOPROLOL TARTRATE 25 MG TAB PO SCH (07:45)
[2018-01-12] MEDS: MAGNESIUM OXIDE 400 MG TAB PO SCH (07:45)
[2018-01-12] MEDS: PANTOprazole SOD 40 MG TAB PO SCH (07:45)
[2018-01-12] MEDS: ASPIRIN 81 MG ECTAB PO SCH (07:45)
[2018-01-12] MEDS: HYDROPHOR OINT 100 GM JAR EXT SCH (07:52)
[2018-01-12] MEDS: INSULIN ASPART 100 UNITS/ML 3 ML PEN SC SCH ×2 (08:00→11:00)
[2018-01-12] MEDS ORDERED: FUROSEMIDE 20 MG TAB PO SCH (09:00)
[2018-01-12] MEDS ORDERED: ATROPINE SULFATE 0.1 MG/ML 5ML SYR ONE (10:10)
--- NOTE | 2018-01-12 12:07 | Death Summary ---
Summary of Admission Date Jan 09, 2018 at 16:36 Date & Time of Jan 12, 2018. 1020 Cause of arrythmia, secondary to diastolic heart failure Hospital Course Shortly after rounds pt became unresponsive, I was called to bedside she was with slow respiration rate, unresponsive and bradycardic, eventually she was pulseless, while in the process of Dying , I called family, and confirmed that she was DNR, we did administer Atropine in attempts to raise heart rate, without success and she was pronounced at 1020 previously in the hospital stay: HAP this is ruled out as changes seem to be confirmed to be HF by CT suggested is acute on chronic diastolic heart failure from valvular heart disease and SOB compounded by Pulmonary htn Acute on chronic diastolic heart failure added lasix daily, oxygen acute kidney injury on CKD stage IIIb, Cr is settled near 1.5 CAD, h/o NSTEMI, HTN, HLD-- ASA, Plavix, Lopressor 50 mg PO BID -Lisinopril held, with diastolic failure it will help valve disease will attempt to regain euvolemic status DM II--last HgbA1c 7.0 on 09/27/17 -Held metformin Lantus SC qd plus -Insulin sliding scale Hypothyroidism Synthroid 50 mcg PO qd Code Status -Level V, Do not resuscitate time to prepare discharge is more than 30 minutes
== END 2018-01-12 20:06 | disposition expired | DRG 314 ==
LOC: EDBD 13:48 → C.EDB 13:50 → C.2T 16:36 → ENRESERV 17:28
PROVIDERS: ADMIT Internal Medicine Sports Medicine; ATTEND Internal Medicine
DX: I27.20 Pulmonary hypertension, unspecified (principal); I50.33 Acute on chronic diastolic (congestive) heart failure; I38 Endocarditis, valve unspecified; N17.9 Acute kidney failure, unspecified; I13.0 Hypertensive heart and chronic kidney disease with heart failure and stage 1 through stage 4 chronic kidney disease, or unspecified chronic kidney disease; R09.02 Hypoxemia; I49.9 Cardiac arrhythmia, unspecified; N18.3 Chronic kidney disease, stage 3 (moderate); E11.22 Type 2 diabetes mellitus with diabetic chronic kidney disease; I25.2 Old myocardial infarction; I25.10 Atherosclerotic heart disease of native coronary artery without angina pectoris; I25.5 Ischemic cardiomyopathy; E03.9 Hypothyroidism, unspecified; F32.9 Major depressive disorder, single episode, unspecified; Z51.81 Encounter for therapeutic drug level monitoring; Z79.899 Other long term (current) drug therapy; Z79.4 Long term (current) use of insulin; Z79.82 Long term (current) use of aspirin; Z66 Do not resuscitate